=== PATIENT | male | born 1960 | race Caucasian/White ===

== ENCOUNTER 2023-03-19 16:15 | Outpatient (RCR) | payer OTHER, SELFPAY | END 2023-03-20 12:49 | disposition home or self-care (01) | LOC: PURB 16:15 | PROVIDERS: ATTENDING PHYSICIAN Internal Medicine Critical Care Medicine; FAMILY PHYSICIAN Internal Medicine | DX: J44.9 Chronic obstructive pulmonary disease, unspecified (principal) | CPT/HCPCS: 94625 ==

== ENCOUNTER 2023-04-11 16:15 | Outpatient (RCR) | payer OTHER, SELFPAY | END 2023-04-11 23:59 | disposition home or self-care (01) | LOC: PURB 16:15 | PROVIDERS: ATTENDING PHYSICIAN Internal Medicine Critical Care Medicine; FAMILY PHYSICIAN Internal Medicine | DX: J44.9 Chronic obstructive pulmonary disease, unspecified (principal) | CPT/HCPCS: 94625 ==

== ENCOUNTER → 2023-05-15 11:04 | Outpatient (REF) | payer OTHER, SELFPAY ==
[2023-05-15 12:24] LABS: % Basophils 0.8 % (0-2); % Immature Granulocytes 0.3 % (0-0.5); % Lymphocytes 29.3 % (20.5-51.1); % Monocytes 15.4 % (1.7-9.3); % Neutrophils 50.2 % (42.2-75.2); Absolute Eosinophils 0.2 10^3/uL (0-0.7); Absolute Lymphocytes 1.1 10^3/uL (1.2-3.4); Absolute Monocytes 0.6 10^3/uL (0.1-0.6); Absolute Neutrophils 1.9 10^3/uL (1.4-6.5); Hematocrit 30.3 % (39.0-52.0); Hemoglobin 8.6 g/dL (13.0-18.0); Mean Corp Hgb Conc. 28.4 g/dL (33.0-37.0); Mean Corpuscular Hgb 20.2 pg (27.0-31.0); Mean Corpuscular Volume 71.3 fL (80.0-94.0); Nucleated Red Blood Cells % 0 % (-); Red Blood Cell Count 4.25 10^6/uL (4.70-6.10); Red Cell Dist. Width 17.5 % (11.5-14.5); White Blood Cell Count 3.8 10^3/uL (4.8-10.8)
[2023-05-15 12:49] LABS: ALT (SGPT) < 10 U/L (0-50); AST (SGOT) 34 U/L (17-59); Albumin 3.7 g/dl (3.5-5.0); Alkaline Phosphatase 90 U/L (38-126); Blood Urea Nitrogen 13 mg/dl (9-20); Calcium 9.1 mg/dl (8.4-10.2); Carbon Dioxide 30 mmol/L (22-30); Chloride 103 mmol/L (98-107); Glucose 105 mg/dl (70-99); HDL Cholesterol 54 mg/dl; LDL Cholesterol, Calculated 31 mg/dl; Potassium 4.4 mmol/L (3.5-5.1); Sodium 137 mmol/L (135-145); Total Cholesterol 106 mg/dl (50-199); Total Protein 6.3 g/dl (6.3-8.2); Triglyceride 107 mg/dl (10-149); Very Low Density Lipoprotein 21 mg/dl (0-30); eGFR > 60.00
[2023-05-15 13:17] LABS: PSA, Total - Screen 0.41 ng/ml (0.0-4.0); TSH 1.35 uIU/ml (0.47-4.68)
[2023-05-15 13:35] LABS: Platelet Count 89 10^3/uL (130-400)
[2023-05-15 13:36] LABS: Anisocytosis 1+; Normal RBC Morphology No; Polychromasia 1+
[2023-05-15 13:37] LABS: Hypochromasia 2+; Ovalocytes 1+
[2023-05-16 20:43] LABS: AFP Male/Tumor Marker 5.44 ng/ml
== END ==
LOC: REG 11:04
PROVIDERS: ATTENDING PHYSICIAN Internal Medicine; FAMILY PHYSICIAN Internal Medicine
DX: K74.60 Unspecified cirrhosis of liver (principal); I48.0 Paroxysmal atrial fibrillation; J44.9 Chronic obstructive pulmonary disease, unspecified; Z12.5 Encounter for screening for malignant neoplasm of prostate
CPT/HCPCS: 36415; 80053; 80061; 82105; 84443; 85025; G0103

== ENCOUNTER → 2023-05-16 14:53 | Outpatient (REF) | payer OTHER, SELFPAY | LOC: RAD 14:53 | PROVIDERS: ATTENDING PHYSICIAN Internal Medicine Critical Care Medicine; FAMILY PHYSICIAN Internal Medicine | DX: Z87.891 Personal history of nicotine dependence (principal); R91.8 Other nonspecific abnormal finding of lung field | CPT/HCPCS: 71271 ==

== ENCOUNTER → 2023-10-10 09:53 | Outpatient (REF) | payer OTHER, SELFPAY ==
[2023-10-10 11:08] LABS: % Basophils 0.7 % (0-2); % Eosinophils 3.2 % (0-6); % Immature Granulocytes 0.4 % (0-0.5); % Lymphocytes 25.6 % (20.5-51.1); % Monocytes 18.9 % (1.7-9.3); % Neutrophils 51.2 % (42.2-75.2); Absolute Eosinophils 0.1 10^3/uL (0-0.7); Absolute Lymphocytes 0.7 10^3/uL (1.2-3.4); Absolute Monocytes 0.5 10^3/uL (0.1-0.6); Absolute Neutrophils 1.4 10^3/uL (1.4-6.5); Hematocrit 23.4 % (39.0-52.0); Hemoglobin 6.1 g/dL (13.0-18.0); Mean Corp Hgb Conc. 26.1 g/dL (33.0-37.0); Nucleated Red Blood Cells % 0 % (-); Platelet Count 87 10^3/uL (130-400); Red Blood Cell Count 3.39 10^6/uL (4.70-6.10); Red Cell Dist. Width 20.3 % (11.5-14.5); White Blood Cell Count 2.8 10^3/uL (4.8-10.8)
[2023-10-10 11:09] LABS: INR 3.35; PT 34.4 Sec (11.4-14.6)
[2023-10-10 11:38] LABS: ALT (SGPT) < 10 U/L (0-50); AST (SGOT) 22 U/L (17-59); Albumin 3.6 g/dl (3.5-5.0); Alkaline Phosphatase 76 U/L (38-126); Blood Urea Nitrogen 11 mg/dl (9-20); Calcium 9.1 mg/dl (8.4-10.2); Carbon Dioxide 31 mmol/L (22-30); Chloride 103 mmol/L (98-107); Glucose 102 mg/dl (70-99); Iron 35 ug/dl (49-181); Potassium 4.4 mmol/L (3.5-5.1); Sodium 141 mmol/L (135-145); Total Bilirubin 1.6 mg/dl (0.2-1.3); eGFR > 60.00
[2023-10-10 11:47] LABS: Percent Saturation 7 % (20-50); Total Iron Binding Capacity 465 ug/dl (261-462)
[2023-10-10 12:13] LABS: Ferritin 3.6 ng/ml (17.9-464.0)
[2023-10-10 13:15] LABS: Glycohemoglobin (HgbA1c) 4.8 % (4.0-5.6)
[2023-10-10 21:37] LABS: AFP Male/Tumor Marker 5.08 ng/ml
== END ==
LOC: REG 09:53
PROVIDERS: ATTENDING PHYSICIAN Internal Medicine; REFERRING PHYSICIAN Internal Medicine
DX: K74.60 Unspecified cirrhosis of liver (principal); E66.9 Obesity, unspecified; K21.9 Gastro-esophageal reflux disease without esophagitis; D50.8 Other iron deficiency anemias
CPT/HCPCS: 36415; 80053; 82105; 82728; 83036; 83540; 83550; 85025; 85610

== ENCOUNTER 2023-10-10 17:52 | Inpatient (IN) | payer OTHER, SELFPAY ==
[2023-10-10] VITALS (13 sets, daily range): BP systolic 109–134; BP diastolic 49–68; BMI 35.1; BMI 33.4
--- NOTE | 2023-10-10 13:30 | ED.GENMED ---
History of Present Illness
<Kareen Martinez PA-C - Last Filed: 10/10/23 22:02>
General
Chief Complaint: Abnormal Lab Value
Source: patient
Exam Limitations: none
Time Seen by Provider: 10/10/23 13:26
Nursing documentation reviewed up to this point in time: agreed with
History of Present Illness
History of Present Illness:
62-year-old male with a history of colon ectasia, hypertension, COPD, A-fib on Xarelto presenting emergency department today with concerns of low hemoglobin. Patient states that he has been feeling lightheaded and dizzy the past few days but did
not think much of it. Patient states that he went yesterday to see his primary care physician and he subsequently got routine outpatient blood work today which demonstrated a hemoglobin of 6.1. Patient's primary care provider called him and
advised him to report to emergency department immediately. Patient denies any chest pain, syncopal episodes. Patient denies dark tarry stools. Patient denies hematemesis, abdominal pain, constipation, diarrhea. Patient denies headache. Patient
states this is similar to how he felt when he had a GI bleed a few years ago, except now he does not have dark stools. Patient denies NSAID use.
Past History
<JENNIFER Carvalho Last Filed: 10/10/23 22:02>
Past History
ED Past Medical History: COPD (Emphysema), GERD, HTN, Hypercholesterolemia and Other (Umbilical hernia with repair, diverticulosis)
ED Past Surgical History: None and Other (Previous umbilical hernia repair)
Patient has exhibited threatening behavior?: No
Social History
Tobacco: Former smoker
Alcohol: Occasional (Rum and coke 1-2 but states more)
Personal:
Living: with family
Family History
Family History: Negative Diabetes, Hypertension or CAD
Review of Systems
<JENNIFER Carvalho Last Filed: 10/10/23 22:02>
Review of Systems
All Other Systems: ROS reviewed and negative except as documented in HPI and ROS
Phy Exam
<Kareen Martinez PA-C - Last Filed: 10/10/23 22:02>
Physical Exam
Physical Exam:
General: Patient is well appearing and in no acute distress; non-toxic
Skin: Warm and dry, pallor noted
Head: Normocephalic, atraumatic
Eyes: Sclera non-icteric. EOMs intact. PERRLA.
Cardiac: Regular rate and rhythm, no murmurs.
Peripheral Vascular: No lower extremity swelling or edema.
Pulm: Normal respiratory effort, no wheezes, rales, or rhonchi.
Abdomen: No abdominal tenderness to palpation
Rectal: External hemorrhoids noted. No active bleeding from rectum. Rectal vault empty.
Neuro: CN II-XII intact, no focal neurologic deficits.
Psychiatric: Appropriate mood and affect.
Course
<Kareen Martinez PA-C - Last Filed: 10/10/23 22:02>
Orders/Labs/Results
Orders:
Orders
10/10/23 Lunch
Clear Liquid
10/10/23 13:30
IV Insert/Care/Rem.- Treatment PRN
10/10/23 13:36
Electrocardiogram (*1) Urgent
Reason for Study: Shortness of Breath
EKG- Treatment ONCE
10/10/23 13:53
Cardiac Monitoring- Treatment ONCE
10/10/23 13:55
Type+Screen Urgent
10/10/23 14:17
* Blood Bank Products Urgent
Blood Bank Products: *Packed RBC Leuko(PRBC's)
Quantity: 1
Transfuse Today: Yes
Is product needed for scheduled surgery?: No
Reason: Anemia
10/10/23 17:28
GASTROINTESTINAL CONSULT Routine
Consulting Provider: Rodrigo Collins
Was physician already notified: Yes
Reason for consult: Severe anemia likely GI bleed
10/10/23 17:30
Admit/Transfer Patient As Directed
Co-Sign Provider:
Level of Care: Inpatient admission
Assign to:: Medical/Surgical
Physician / Group: Martínez Serrano
Diagnosis: Severe anemia suspected GI bleed
Reason for Hospitalization: Severe anemia suspected GI bleed
Expected length of stay greater than two midnights?: Yes
ELOS- Estimated Length of Stay in days: 2
I certify the patient meets the requirements for IP care: Yes
PRN Pain Medication Management As Directed
May give lesser potent ordered pain med per pt: Yes
preference::
Protocol:: Medication orders for pain may be administered in a
manner that supports deferring to patient preference
when the pt is:
- Requesting an ordered lesser potent pain medication.
Least to most potent pain medications are defined
as: acetaminophen < NSAID < tramadol < opioids
(morphine, oxycodone, hydromorphone).
- Requesting a lesser dose of the same medication IF
ORDERED.
- Requesting a less intrusive route of administration
if both routes are prescribed by the provider (PO <
IV).
10/10/23 17:39
Code Status As Directed
Resuscitation Status: Full Code
10/10/23 19:47
Acetaminophen [Tylenol] 650 mg PO Q4HPRN PRN
Albuterol [ProAIR HFA INHALER] 2 puff INH R Q4HPRN PRN
Bisacodyl [Dulcolax] 10 mg RECTAL [id number] PRN
Cholecalciferol (Vitamin D3) [VITAMIN D3 (cholecalciferol)] 50 mcg PO QPM
Polyethylene Glycol Powder [Miralax] 17 grams PO DAILYPRN PRN
10/10/23 19:47
Activity As Directed
Activity Level: As Tolerated
Pneumatic Compression Sleeves As Directed
Type: Knee high
Vital Signs As Directed
Frequency: Per unit guidelines
DX Deep Vein Thrombosis Video Routine
10/10/23 20:00
Ascorbic Acid [Vitamin C] 500 mg PO BID
Ipratropium/Albuterol Sulfate [Duoneb] 3 ml INH R QID
Pantoprazole [Protonix IV] 40 mg IV BID
10/10/23 22:00
Carbidopa/Levodopa [Sinemet 25-100] 1 tablet PO TID@1100,1800,2200
Docusate Sodium [Colace] 100 mg PO HS
tadalafil See Dose Instructions PO HS
10/11/23 06:00
Basic Metabolic Panel IN AM
Complete Blood Count/No Diff IN AM
Magnesium IN AM
10/11/23 08:00
Furosemide [Lasix] 40 mg PO DAILY
rkrjbqrigcv-tanshuqsd-ymfjbrws [Trelegy Ellipta] See Dose Instructions INH R DAILY
10/11/23 12:00
Propranolol Extended Release [Inderal LA] 80 mg PO NOON
Roflumilast [Daliresp] 500 mcg PO NOON
Rosuvastatin Calcium [Crestor] 20 mg PO NOON
10/12/23 06:00
Basic Metabolic Panel IN AM
Complete Blood Count/No Diff IN AM
Magnesium IN AM
10/13/23 06:00
Basic Metabolic Panel IN AM
Complete Blood Count/No Diff IN AM
Magnesium IN AM
10/14/23 06:00
Basic Metabolic Panel IN AM
Complete Blood Count/No Diff IN AM
Magnesium IN AM
10/15/23 06:00
Basic Metabolic Panel IN AM
Complete Blood Count/No Diff IN AM
Magnesium IN AM
10/16/23 06:00
Basic Metabolic Panel IN AM
Complete Blood Count/No Diff IN AM
Magnesium IN AM
10/17/23 06:00
Basic Metabolic Panel IN AM
Complete Blood Count/No Diff IN AM
Magnesium IN AM
Abnormal Lab Results
10/10/23
13:55
Crossmatch IS Only See Detail
10/10/23 13:29
10/10/23 13:29
Vital Signs
Initial and Last Documented VS:
Initial Vital Signs
Temp Pulse Resp BP Pulse Ox
99.4 F 69 18 126/57 97
10/10/23 12:33 10/10/23 12:33 10/10/23 12:33 10/10/23 12:33 10/10/23 12:33
Last Documented Vital Signs
Temp Pulse Resp BP Pulse Ox
98.4 F 70 16 117/51 98
10/10/23 19:40 10/10/23 19:40 10/10/23 20:13 10/10/23 19:40 10/10/23 20:13
Ugolt;Gokul Jarquin, - Last Filed: 10/10/23 15:03>
Orders/Labs/Results
Orders:
Orders
10/10/23 Lunch
Clear Liquid
10/10/23 13:30
IV Insert/Care/Rem.- Treatment PRN
10/10/23 13:36
Electrocardiogram (*1) Urgent
Reason for Study: Shortness of Breath
EKG- Treatment ONCE
10/10/23 13:53
Cardiac Monitoring- Treatment ONCE
10/10/23 13:55
Type+Screen Urgent
10/10/23 14:17
* Blood Bank Products Urgent
Blood Bank Products: *Packed RBC Leuko(PRBC's)
Quantity: 1
Transfuse Today: Yes
Is product needed for scheduled surgery?: No
Reason: Anemia
10/10/23 17:28
GASTROINTESTINAL CONSULT Routine
Consulting Provider: Rodrigo Collins
Was physician already notified: Yes
Reason for consult: Severe anemia likely GI bleed
10/10/23 17:30
Admit/Transfer Patient As Directed
Co-Sign Provider:
Level of Care: Inpatient admission
Assign to:: Medical/Surgical
Physician / Group: Martínez Serrano
Diagnosis: Severe anemia suspected GI bleed
Reason for Hospitalization: Severe anemia suspected GI bleed
Expected length of stay greater than two midnights?: Yes
ELOS- Estimated Length of Stay in days: 2
I certify the patient meets the requirements for IP care: Yes
PRN Pain Medication Management As Directed
May give lesser potent ordered pain med per pt: Yes
preference::
Protocol:: Medication orders for pain may be administered in a
manner that supports deferring to patient preference
when the pt is:
- Requesting an ordered lesser potent pain medication.
Least to most potent pain medications are defined
as: acetaminophen < NSAID < tramadol < opioids
(morphine, oxycodone, hydromorphone).
- Requesting a lesser dose of the same medication IF
ORDERED.
- Requesting a less intrusive route of administration
if both routes are prescribed by the provider (PO <
IV).
10/10/23 17:39
Code Status As Directed
Resuscitation Status: Full Code
10/10/23 19:47
Acetaminophen [Tylenol] 650 mg PO Q4HPRN PRN
Albuterol [ProAIR HFA INHALER] 2 puff INH R Q4HPRN PRN
Bisacodyl [Dulcolax] 10 mg RECTAL [id number] PRN
Cholecalciferol (Vitamin D3) [VITAMIN D3 (cholecalciferol)] 50 mcg PO QPM
Polyethylene Glycol Powder [Miralax] 17 grams PO DAILYPRN PRN
10/10/23 19:47
Activity As Directed
Activity Level: As Tolerated
Pneumatic Compression Sleeves As Directed
Type: Knee high
Vital Signs As Directed
Frequency: Per unit guidelines
DX Deep Vein Thrombosis Video Routine
10/10/23 20:00
Ascorbic Acid [Vitamin C] 500 mg PO BID
Ipratropium/Albuterol Sulfate [Duoneb] 3 ml INH R QID
Pantoprazole [Protonix IV] 40 mg IV BID
10/10/23 22:00
Carbidopa/Levodopa [Sinemet 25-100] 1 tablet PO TID@1100,1800,2200
Docusate Sodium [Colace] 100 mg PO HS
tadalafil See Dose Instructions PO HS
10/11/23 06:00
Basic Metabolic Panel IN AM
Complete Blood Count/No Diff IN AM
Magnesium IN AM
10/11/23 08:00
Furosemide [Lasix] 40 mg PO DAILY
[id number]-ljcjlyyqg-rogltigl [Trelegy Ellipta] See Dose Instructions INH R DAILY
10/11/23 12:00
Propranolol Extended Release [Inderal LA] 80 mg PO NOON
Roflumilast [Daliresp] 500 mcg PO NOON
Rosuvastatin Calcium [Crestor] 20 mg PO NOON
10/12/23 06:00
Basic Metabolic Panel IN AM
Complete Blood Count/No Diff IN AM
Magnesium IN AM
10/13/23 06:00
Basic Metabolic Panel IN AM
Complete Blood Count/No Diff IN AM
Magnesium IN AM
10/14/23 06:00
Basic Metabolic Panel IN AM
Complete Blood Count/No Diff IN AM
Magnesium IN AM
10/15/23 06:00
Basic Metabolic Panel IN AM
Complete Blood Count/No Diff IN AM
Magnesium IN AM
10/16/23 06:00
Basic Metabolic Panel IN AM
Complete Blood Count/No Diff IN AM
Magnesium IN AM
10/17/23 06:00
Basic Metabolic Panel IN AM
Complete Blood Count/No Diff IN AM
Magnesium IN AM
Abnormal Lab Results
10/10/23
13:55
Crossmatch IS Only See Detail
10/10/23 13:29
10/10/23 13:29
Vital Signs
Initial and Last Documented VS:
Initial Vital Signs
Temp Pulse Resp BP Pulse Ox
99.4 F 69 18 126/57 97
10/10/23 12:33 10/10/23 12:33 10/10/23 12:33 10/10/23 12:33 10/10/23 12:33
Last Documented Vital Signs
Temp Pulse Resp BP Pulse Ox
98.4 F 70 16 117/51 98
10/10/23 19:40 10/10/23 19:40 10/10/23 20:13 10/10/23 19:40 10/10/23 20:13
<Kareen Martinez PA-C - Last Filed: 10/10/23 22:02>
MDM/Problems Addressed
Differential Diagnosis Includes:
ddx include gastritis, duodenitis, colorectal cancer, iron deficiency anemia, colon ectasia
MDM/Problems Addressed:
Anemia:
62-year-old male with a history of colon ectasia, hypertension, COPD, A-fib on Xarelto presenting emergency department today with concerns of low hemoglobin. Patient states that he has been feeling lightheaded and dizzy the past few days but did
not think much of it. Patient states that he went yesterday to see his primary care physician and he subsequently got routine outpatient blood work today which demonstrated a hemoglobin of 6.1.
Of note, patient was hospitalized 2 years ago for similar case except at that time patient had dark stools. Patient was found at that time to have colon ectasia but unclear if that was the cause of the bleeding at the time. Patient followed up with
Dr. Roblero as an outpatient. Today I am unable to obtain a stool sample for hemoccult testing. Patient will be transfused. Patient is on Xarelto. Will admit for blood transfusion and further work up.
Chronic conditions affecting care:
Gi bleed, liver cirrhosis, copd
Acute Exacerbation and/or Progression of Chronic Illness:
Gi bleed, liver cirrhosis, copd
<Kareen Martinez PA-C - Last Filed: 10/10/23 22:02>
*Pulse Oximetry
Patient hypoxic: no
*Critical Care Note
Total Time (30-74mins, 75-104mins- exclusive of procedures): Not Applicable
Data Reviewed
Review of Other/Old Records Reveals: Records (reviewed records from previous ER visit where patient was transfused and hospitalized for anemia and GI bleed)
Source: patient and records
Prescriptions/Medications Considered But Not Given:
n/a
Further Testing Considered But Not Given:
n/a
<Kareen Martinez PA-C - Last Filed: 10/10/23 22:02>
Patient Management
Escalation/DeEscalation of care consider admission/obs:
Admit indicated
ED Attending Note
<JENNIFER Carvalho Last Filed: 10/10/23 22:02>
-
Portions of this chart may have been created with voice recognition software.� Occasional wrong word or��sound alike� substitutions may have occurred due to the inherent limitations of voice recognition software.
<Gokul Jarquin DO - Last Filed: 10/10/23 15:03>
ED Attending Note
Patient seen and examined by attending physician: Yes
I performed the substantive portion of visit, reviewed & personally made and approve the management plan that is documented in note by myself or CARLOS.: Yes
ED Attending Note:
I agree with Hope's note
Patient presents with fatigue, short breath with exertion. Outpatient labs show a low hemoglobin. Patient denies any melanotic stool or hematochezia.
General: Awake, Alert, Oriented X3. No acute distress.
Vitals: unremarkable
Head: Atraumatic
Eyes: Pupils equal, EOMI
Throat: Airway intact, no exudates
Neck: Trachea midline
Lungs: Clear and equal b/l
Heart: Regular rate, no murmurs
Abd: Soft, Nontender, No pulsatile mass
Neuro: Nonfocal
Skin: Pale, warm, dry, no rash
Extremities: pulses equal b/l, no edema
Patient will require transfusion. Patient will require hospitalization for further evaluation source of anemia
Discharge Plan
Departure
Patient Disposition: Admit
Date of Disposition: 10/10/23
Time of Disposition: 15:10
Admit to: Med/Surg
Presentation/result/management discussed w/ accepting MD/DO: Hospitalist
Patient with high blood pressure during this ER visit?: Yes
Condition: Fair
Discharge Problem:
Symptomatic anemia
Interventions
Interventions:
*Risk Screen - Suicide Last Done: 10/10/23 12:33
*General Assessment Last Done: 10/10/23 12:33
*Neglect/Abuse Screening Last Done: 10/10/23 12:33
ED- Fall Risk Assessment Last Done: 10/10/23 13:45
*ED COVID-19 Vaccine History Last Done: 10/10/23 13:45
*Nursing Disposition Last Done: 10/10/23 19:52
Discharge Date and Time
Discharge Date/Time: 10/10/23 19:54
--- NOTE | 2023-10-10 16:03 | HPS.HSE ---
Family Physician
-
Family Physician: Talib Nava
Chief Complaint
-
Abnormal Labs
History of Present Illness
62 male history colon Ectasia hypertension COPD A-fib Xarelto diverticulosis Parkinson # cirrhosis presents with incidental finding severe anemia on routine annual lab follow-up with primary. Referred to ED for further evaluation, patient reports
usual state of health denies any acute issues. Reports overall feeling well. Denies fevers chills nausea vomiting diarrhea constipation bloody or dark stools chest pain palpitations or abdomen pain. Does report occasional lightheadedness pallor.
Vital signs stable on room air. Labs notable for pancytopenia, hemoglobin 6.1. Iron deficiency noted with elevated TIBC, low ferritin.
Medical History
Past Medical History
Past Medical History: Reports Other (As above)
Past Surgical History: Reports Other (As above)
Social History
Tobacco: Non-smoker
Alcohol: None
Drug: None
Personal: Partner
Living: With Family
Family History
Family History: Not pertinent (Reviewed)
Allergies / Home Medications
Allergies reflects when Allergies were last updated in [facility].
Home Medications with original date entered in [facility]
Allergy/Medication List:
Allergies
Allergy/AdvReac Type Severity Reaction Status Date / Time
bacitracin Allergy Rash Verified 12/20/21 13:48
[From Neosporin
([id number])]
neomycin Allergy Rash Verified 12/20/21 13:48
[From Neosporin
([id number])]
polymyxin B Allergy Rash Verified 12/20/21 13:48
[From Neosporin
([id number])]
Home Medications
cholecalciferol (vitamin D3) 50 mcg (2,000 unit) tablet 2,000 unit PO QPM Supplement 03/20/18
docusate sodium 100 mg capsule 100 mg PO HS Constipation 03/20/18
ascorbic acid (vitamin C) 500 mg tablet (Vitamin C) 500 mg PO BID Supplement 04/06/19
lansoprazole 30 mg delayed release,disintegrating tablet 30 mg PO DAILY Gastrointestinal issue 04/06/19
roflumilast 500 mcg tablet (Daliresp) 500 mcg PO NOON Lung/breathing issues 04/06/19
rosuvastatin 20 mg tablet 20 mg PO NOON High cholesterol 03/06/21
rivaroxaban 20 mg tablet (Xarelto) 20 mg PO QPM #30 tabs 03/12/21
carbidopa 25 mg-levodopa 100 mg tablet (Sinemet) 1 tab PO TID@1100,1800,2200 Neurological Condition 12/20/21
furosemide 40 mg tablet (Lasix) 40 mg PO DAILY Fluid retention/Swelling 12/20/21
albuterol sulfate 90 mcg/actuation aerosol inhaler 2 puff inhalation R Q4HPRN PRN sob 10/10/23
fluticasone fur. 200 mcg-umeclid 62.5 mcg-vilant 25 mcg inhalat.powder (Trelegy Ellipta) 1 inh inhalation R DAILY 10/10/23
ipratropium 0.5 mg-albuterol 3 mg (2.5 mg base)/3 mL nebulization soln 3 ml inhalation R QID 10/10/23
propranolol 80 mg capsule,24 hr,extended release 80 mg PO NOON 10/10/23
tadalafil 5 mg tablet 5 mg PO HS 10/10/23
Review of Systems
-
A 12 point ROS was completed and negative except as noted: Yes
Constitutional: Reports Other (as below)
Physical Exam
Vital Signs
Vital Signs
Temp Pulse Resp BP Pulse Ox
98.2 F 65 21 121/62 97
10/10/23 15:45 10/10/23 15:45 10/10/23 15:45 10/10/23 15:45 10/10/23 15:45
Physical Exam
General: Other (as below)
Laboratory Results
-
10/10/23 13:29
10/10/23 13:29
Laboratory Results
Total Bilirubin Cancelled 10/10/23 13:29
AST Cancelled 10/10/23 13:29
ALT Cancelled 10/10/23 13:29
Alkaline Phosphatase Cancelled 10/10/23 13:29
Impression/Plan
-
ROS
General: Denies fever chills night sweats unexpected weight loss
Neuro: Denies seizure shaking loss of consciousness dizziness vertigo
Psych: denies depression hallucinations confusion manic episodes
Endocrine: Denies polyuria polydipsia polyphagia heat/cold intolerance
HEENT: Denies blindness visual disturbances epistaxis
Pulmonary: denies coughing hemoptysis sneezing sob dyspnea on exertion
Cardiovascular: denies chest pain palpitations leg swelling
Hematology: easy bruising/bleeding Reports intermittent lightheadedness pallor
Gastrointestinal: denies nausea vomiting diarrhea constipation hematemesis hematochezia melena
Genito-Urinary: denies retention incontinence dysuria
Musculoskeletal: denies joint pain weakness
Dermatology: denies rash laceration bruising
Physical Exam
General: No pallor, cyanosis, or jaundice. obese
HEENT: Throat clear. PERRLA Normocephalic atraumatic
NECK: Supple. No JVD Carotid Bruits
RESPIRATORY: Lungs clear to auscultation. No crackles wheezes stridor
CVS: S1, S2 normal. RRR. No murmur, rub or gallop.
ABDOMEN: Soft, non-tender. No distension. BS+/normal.
EXTREMITIES: No peripheral cyanosis or edema.
BSW: AOx3. No focal deficits.
IMPRESSION:
62 male history Colon Ectasia hypertension COPD A-fib Xarelto diverticulosis Parkinson # cirrhosis presents with incidental finding severe anemia on routine annual lab follow-up with primary. Referred to ED for further evaluation, patient reports
usual state of health denies any acute issues. Reports overall feeling well. Denies fevers chills nausea vomiting diarrhea constipation bloody or dark stools chest pain palpitations or abdomen pain. Does report occasional lightheadedness pallor.
Vital signs stable on room air. Labs notable for pancytopenia, hemoglobin 6.1. Iron deficiency noted with elevated TIBC, low ferritin.
PLAN:
#Severe Anemia Suspected GI bleed
#Pancytopenia possibly 2/2 BENDER cirrhosis
#Hx Colon Ectasia
#Diverticulosis
Hold home Xarelto
1PRBC transfusion given in ED Hgb 6.1 follow up AM lab post-transfusion
trend H&H WBC Platelets
GI eval
clear liquid diet
npo after midnight
IV protonix BID
#HTN
cont home Propranolol Lasix with holding parameters
#COPD
stable respiratory status on room air
cont home Trelegy Daliresp or equivalent
cont home Duoneb R QID
#paroxysmal Afib
currently normal sinus rhythm
hold home Xarelto as above
cont home Propranolol
#Parkinson
Cont home Sinemet
#BPH
cont home tadalafil
dvt ppx SCD
Full Code
discussed with patient and patient's significant other Shilpi
I spent a total of 77 minutes with the patient or on the floor. More than 50% of this time involved counseling and coordination of care.
--- NOTE | 2023-10-10 17:09 | CON.GI ---
Consultation
-
Date/Time Consultation Requested: 10/10/23 4pm
Date/Time Consultation Performed: 10/10/23 6:15pm
Requesting Provider: Kareen Martinez
Performing Provider: Rodrigo Collins
Reason for Consultation: Anemia
Medical History
Chief Complaint / HPI
Chief Complaint: Anemia
History of Present Illness:
Patient is a 62-year-old male who presents to the ER due to abnormal outpatient labs showing a hemoglobin of 6. This was done for routine physical. He actually denies any specific complaints at this time. He denies any fatigue, blood per rectum,
melena, abdominal pain, heartburn, dysphagia. He denies NSAIDs. He takes Prevacid daily for heartburn. He is on Xarelto for atrial fibrillation. He has BENDER cirrhosis. He had colonoscopy and endoscopy in December 2021 for evaluation of the
bleeding at that time. Endoscopy was negative for varices. He did not have capsule endoscopy done after that. He had a right sided ectasia on colonoscopy that was cauterized. He reports chronic constipation and takes Colace.
Past Medical History
Past Medical History: Arrhythmias (Afib), COPD, GERD, HTN and Other (BENDER cirrhosis, Parkinson's)
Past Surgical History: Other (umbilical hernia repair)
Social History
Tobacco: Former Smoker
Alcohol: None
Family History
Family History: Reviewed & Not Pertinent
Allergies / Home Medications
Allergy/AdvReac Type Severity Reaction Status Date / Time
bacitracin Allergy Rash Verified 12/20/21 13:48
[From Neosporin
([id number])]
neomycin Allergy Rash Verified 12/20/21 13:48
[From Neosporin
([id number])]
polymyxin B Allergy Rash Verified 12/20/21 13:48
[From Neosporin
([id number])]
�Medication �Instructions �Recorded
cholecalciferol (vitamin D3) 50 2,000 unit PO QPM Supplement 03/20/18
mcg (2,000 unit) tablet
docusate sodium 100 mg capsule 100 mg PO HS Constipation 03/20/18
ascorbic acid (vitamin C) 500 mg 500 mg PO BID Supplement 04/06/19
tablet (Vitamin C)
lansoprazole 30 mg delayed 30 mg PO DAILY Gastrointestinal 04/06/19
release,disintegrating tablet issue
roflumilast 500 mcg tablet 500 mcg PO NOON Lung/breathing 04/06/19
(Daliresp) issues
rosuvastatin 20 mg tablet 20 mg PO NOON High cholesterol 03/06/21
rivaroxaban 20 mg tablet (Xarelto) 20 mg PO QPM #30 tabs 03/12/21
carbidopa 25 mg-levodopa 100 mg 1 tab PO TID@1100,1800,2200 12/20/21
tablet (Sinemet) Neurological Condition
furosemide 40 mg tablet (Lasix) 40 mg PO DAILY Fluid 12/20/21
retention/Swelling
albuterol sulfate 90 mcg/actuation 2 puff inhalation R Q4HPRN PRN sob 10/10/23
aerosol inhaler
fluticasone fur. 200 mcg-umeclid 1 inh inhalation R DAILY 10/10/23
62.5 mcg-vilant 25 mcg
inhalat.powder (Trelegy Ellipta)
ipratropium 0.5 mg-albuterol 3 mg 3 ml inhalation R QID 10/10/23
(2.5 mg base)/3 mL nebulization
soln
propranolol 80 mg capsule,24 80 mg PO NOON 10/10/23
hr,extended release
tadalafil 5 mg tablet 5 mg PO HS 10/10/23
Review of Systems
-
All other systems: A 12 pt ROS was Negative except as stated above in HPI
Vital Signs
Temp Pulse Resp BP Pulse Ox
98.4 F 63 18 133/68 97
10/10/23 16:03 10/10/23 16:03 10/10/23 16:03 10/10/23 16:03 10/10/23 16:03
Physical Exam
Exam
General: No Apparent Distress
HEENT: Normocephalic and Atraumatic
Respiratory: Non Labored Respirations
GI: Soft, Non Tender and Non Distended
Skin: Warm and Dry
Neuro: Alert and Oriented
Psych: Calm
Results
WBC Cancelled 10/10/23 13:29
Hgb Cancelled 10/10/23 13:29
Hct Cancelled 10/10/23 13:29
MCV Cancelled 10/10/23 13:29
Plt Count Cancelled 10/10/23 13:29
Absolute Neuts (auto) Cancelled 10/10/23 13:29
Sodium Cancelled 10/10/23 13:29
Potassium Cancelled 10/10/23 13:29
Chloride Cancelled 10/10/23 13:29
Carbon Dioxide Cancelled 10/10/23 13:29
BUN Cancelled 10/10/23 13:29
Creatinine Cancelled 10/10/23 13:29
Calcium Cancelled 10/10/23 13:29
Total Bilirubin Cancelled 10/10/23 13:29
AST Cancelled 10/10/23 13:29
ALT Cancelled 10/10/23 13:29
Alkaline Phosphatase Cancelled 10/10/23 13:29
Diagnostic Image Results:
Prior GI Procedures:
EGD:
Colonoscopy:
Assessment / Plan
-
Summary: 62yo male presents with Hgb 6.1 on routine labs. Denies GI complaints. INR 3.35. On Xarelto for Afib. Last EGD/colonoscopy in December 2021 for evaluation of GI bleeding/melena. EGD negative. Colonoscopy R sided ectasia cauterized w
APC.
Impression:
Anemia Hgb 6.1. No stool in vault on rectal in ER
Afib on Xarelto. INR 3.35
MASH cirrhosis
Hx R colon ectasia cauterized in 2021
Recommendations:
Hold Xarelto
Transfuse PRBC
Follow CBC, INR
EGD when INR is acceptable r/o portal gastropathy, varices, PUD
If EGD negative, then colonoscopy and OP capsule endoscopy next
PPI
-
-
Thank you for consultation and allowing me to participate in the patient's care. Please call the irrigation laborer GI physician during the after hours with any questions or concerns.
[2023-10-10] MEDS: DUONEB 3 ML INH (20:09)
[2023-10-10] MEDS: PROTONIX IV 40 MG IV (20:45)
[2023-10-10] MEDS: NSS (PRESERVATIVE FREE) 10 ML IV (20:47)
[2023-10-10] MEDS: VITAMIN C 500 MG PO (20:53)
[2023-10-10] MEDS: VITAMIN D3 (cholecalciferol) 50 MCG PO (20:53)
[2023-10-10] MEDS: SINEMET 25-100 1 TABLET PO (20:53)
[2023-10-10] MEDS: COLACE PO (22:10)
[2023-10-11] VITALS (8 sets, daily range): BP systolic 105–133; BP diastolic 47–63
[2023-10-11] MEDS: MYLICON 80 MG PO (03:06)
--- NOTE | 2023-10-11 03:21 | PTCARENOTE ---
Patient c/o gas pains. No prn medications available. Patient has had no BMs. CHRISTINE Hernandez notified, order for Mylicon placed in EMR. Care ongoing, will monitor.
--- NOTE | 2023-10-11 07:39 | W.PN.HOSP.TC ---
Today's Communication/Plan
-
diet as per GI
transfuse goal hgb>7.5
monitor H&H
Iron supplementation
Assessment / Plan
Assessment / Plan
Physical Exam
General: No pallor, cyanosis, or jaundice. obese
HEENT: Throat clear. PERRLA Normocephalic atraumatic
NECK: Supple. No JVD Carotid Bruits
RESPIRATORY: Lungs clear to auscultation. No crackles wheezes stridor
CVS: S1, S2 normal. RRR. No murmur, rub or gallop.
ABDOMEN: Soft, non-tender. No distension. BS+/normal.
EXTREMITIES: No peripheral cyanosis or edema.
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 No focal deficits.
IMPRESSION:
62 male history Colon Ectasia hypertension COPD A-fib Xarelto diverticulosis Parkinson # cirrhosis presents with incidental finding severe anemia on routine annual lab follow-up with primary. Referred to ED for further evaluation, patient reports
usual state of health denies any acute issues. Reports overall feeling well. Denies fevers chills nausea vomiting diarrhea constipation bloody or dark stools chest pain palpitations or abdomen pain. Does report occasional lightheadedness pallor.
Vital signs stable on room air. Labs notable for pancytopenia, hemoglobin 6.1. Iron deficiency noted with elevated TIBC, low ferritin.
PLAN:
#Severe Anemia Suspected GI bleed
#Pancytopenia possibly 2/2 BENDER cirrhosis
#Hx Colon Ectasia
#Diverticulosis
Hold home Xarelto
Monitor H&H and transfuse for goal Hgb>7.5
trend H&H WBC Platelets
GI eval appreciated
clear liquid diet
IV protonix BID
#HTN
cont home Propranolol Lasix with holding parameters
#COPD
stable respiratory status on room air
cont home Trelegy Daliresp or equivalent
cont home Duoneb R QID
#paroxysmal Afib
currently normal sinus rhythm
hold home Xarelto as above
cont home Propranolol
#Parkinson
Cont home Sinemet
#BPH
cont home tadalafil
dvt ppx SCD
Full Code
I spent a total of 50 minutes with the patient or on the floor. More than 50% of this time involved counseling and coordination of care.
Anticipated Discharge: > 48 hours
Subjective/Interval History
-
Date of Service: October 11, 2023
No acute distress. Appears comfortable at this time.
Objective Data
-
Labs:
Laboratory Results
10/11/23 10/11/23
06:00 06:49
WBC Pending
Hgb Pending
Hct Pending
Plt Count Pending
PT Pending
INR Pending
Sodium Pending
Potassium Pending
Chloride Pending
Carbon Dioxide Pending
BUN Pending
Creatinine Pending
Glucose Pending
Calcium Pending
Vital Signs:
Vital Signs
Temp Pulse Resp BP Pulse Ox
98.4 F 67 18 116/62 98
10/11/23 03:10 10/11/23 03:10 10/11/23 03:10 10/11/23 03:10 10/11/23 03:10
I&O
10/10/23 10/11/23 10/12/23
06:59 06:59 06:59
Intake Total 1210 / 1210
Balance 1210 / 1210
[2023-10-11] MEDS: NON-FORMULARY ITEM 1 INH INH (08:24)
[2023-10-11] MEDS: DUONEB 3 ML INH ×4 (08:24→23:59)
[2023-10-11] MEDS: NSS (PRESERVATIVE FREE) 10 ML IV ×2 (08:44→21:16)
[2023-10-11] MEDS: PROTONIX IV 40 MG IV ×2 (08:44→21:15)
[2023-10-11] MEDS: LASIX 40 MG PO (08:44)
[2023-10-11] MEDS: VITAMIN C 500 MG PO ×2 (08:45→21:10)
[2023-10-11 09:02] LABS: Hematocrit 26.9 % (39.0-52.0); Hemoglobin 7.5 g/dL (13.0-18.0); INR 1.69; Mean Corp Hgb Conc. 27.9 g/dL (33.0-37.0); Mean Corpuscular Volume 68.3 fL (80.0-94.0); PT 19.7 Sec (11.4-14.6); Platelet Count 103 10^3/uL (130-400); Red Blood Cell Count 3.94 10^6/uL (4.70-6.10); Red Cell Dist. Width 21.1 % (11.5-14.5); White Blood Cell Count 4.4 10^3/uL (4.8-10.8)
[2023-10-11 09:29] LABS: Blood Urea Nitrogen 9 mg/dl (9-20); Calcium 9.4 mg/dl (8.4-10.2); Carbon Dioxide 28 mmol/L (22-30); Chloride 103 mmol/L (98-107); Estimated Creatinine Clearance > 125 ml/min; Glucose 104 mg/dl (70-99); Magnesium 1.8 mg/dl (1.6-2.3); Phosphorus 3.7 mg/dl (2.5-4.5); Potassium 4.4 mmol/L (3.5-5.1); Sodium 140 mmol/L (135-145); eGFR > 60.00
--- NOTE | 2023-10-11 09:35 | W.PN.GI.CBS2 ---
Today's Communication / Plan
-
monitor hgb
can have clears
Assessment / Plan
-
Summary: 62yo male presents with Hgb 6.1 on routine labs. Denies GI complaints. INR 3.35. On Xarelto for Afib. Last EGD/colonoscopy in December 2021 for evaluation of GI bleeding/melena. EGD negative. Colonoscopy R sided ectasia cauterized w
APC.
Impression:
Anemia Hgb 6.1. now 7.5
No stool in vault on rectal in ER
Afib on Xarelto. INR 3.35 now 1.69
MASH cirrhosis
Hx R colon ectasia cauterized in 2021
Recommendations:
Hold Xarelto
Follow CBC, INR
INR trended down
EGD/colonoscopy when stable
PPI
ok clears
Subjective
Subjective
Date of Service: October 11, 2023
Pt feels short of breath and fatigued. No abdominal pain or bleeding
Objective
Data Reviewed
Laboratory Data:
Laboratory Results
10/11/23 08:16
10/11/23 08:16
Laboratory Results
PT 19.7 Sec (11.4-14.6) H 10/11/23 08:16
INR 1.69 10/11/23 08:16
Phosphorus 3.7 mg/dl (2.5-4.5) 10/11/23 08:16
Magnesium 1.8 mg/dl (1.6-2.3) 10/11/23 08:16
Total Bilirubin Cancelled 10/10/23 13:29
AST Cancelled 10/10/23 13:29
ALT Cancelled 10/10/23 13:29
Alkaline Phosphatase Cancelled 10/10/23 13:29
Vital Signs and I&O:
Vital Signs
Temp Pulse Resp BP Pulse Ox
98.1 F 79 16 122/61 98
10/11/23 08:05 10/11/23 08:29 10/11/23 08:29 10/11/23 08:05 10/11/23 08:29
I&O
10/10/23 10/11/23 10/12/23
06:59 06:59 06:59
Intake Total 1210 / 1210
Balance 1210 / 1210
Physical Exam
Physical Exam
Pulmonary: Other (dec breath sounds)
GI: Soft and Non Tender
[2023-10-11] MEDS: DALIRESP 500 MCG PO (11:12)
[2023-10-11] MEDS: CRESTOR 20 MG PO (11:12)
[2023-10-11] MEDS: INDERAL LA 80 MG PO (11:12)
[2023-10-11] MEDS: SINEMET 25-100 1 TABLET PO ×3 (11:14→21:24)
[2023-10-11] MEDS: DUONEB INH (11:47)
[2023-10-11 13:28] LABS: Hematocrit 25.6 % (39.0-52.0); Hemoglobin 7.1 g/dL (13.0-18.0)
[2023-10-11] MEDS: FERRLECIT 110 MG IV (13:41)
--- NOTE | 2023-10-11 14:39 | CM ---
Patient seen bedside with , initial assessment completed. Patient resides in a single story home, two steps to enter. Patient has a walker at home, CPAP through [facility], history of [facility], denies SNF. Patient confirms PCP
Brandy, pharmacy [facility]. Patient confirms prescription coverage through insurance. Patient denies food, housing/utility, transportation insecurities at home. Advanced directive paperwork provided. CM will continue to follow for all
discharge planning needs.
Plan; home no needs likely.
[2023-10-11] MEDS: VITAMIN D3 (cholecalciferol) 50 MCG PO (18:39)
[2023-10-11] MEDS: COLACE PO (21:12)
[2023-10-11] MEDS: NON-FORMULARY ITEM 5 MG PO (21:17)
[2023-10-12] VITALS (7 sets, daily range): BP systolic 114–149; BP diastolic 54–80
[2023-10-12 06:51] LABS: Blood Urea Nitrogen 8 mg/dl (9-20); Calcium 8.9 mg/dl (8.4-10.2); Carbon Dioxide 28 mmol/L (22-30); Chloride 100 mmol/L (98-107); Estimated Creatinine Clearance > 125 ml/min; Glucose 92 mg/dl (70-99); Magnesium 1.7 mg/dl (1.6-2.3); Potassium 4.3 mmol/L (3.5-5.1); Sodium 138 mmol/L (135-145); eGFR > 60.00
[2023-10-12] MEDS: DUONEB 3 ML INH ×4 (07:26→20:27)
--- NOTE | 2023-10-12 07:34 | W.PN.HOSP.TC ---
Today's Communication/Plan
-
monitor H&H
diet as per GI
EGD/colonoscopy Sat
Assessment / Plan
Assessment / Plan
Physical Exam
General: No pallor, cyanosis, or jaundice. obese
HEENT: Throat clear. PERRLA Normocephalic atraumatic
NECK: Supple. No JVD Carotid Bruits
RESPIRATORY: Lungs clear to auscultation. No crackles wheezes stridor
CVS: S1, S2 normal. RRR. No murmur, rub or gallop.
ABDOMEN: Soft, non-tender. No distension. BS+/normal.
EXTREMITIES: No peripheral cyanosis or edema.
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
IMPRESSION:
62 male history Colon Ectasia hypertension COPD A-fib Xarelto diverticulosis Parkinson # cirrhosis presents with incidental finding severe anemia on routine annual lab follow-up with primary. Referred to ED for further evaluation, patient reports
usual state of health denies any acute issues. Reports overall feeling well. Denies fevers chills nausea vomiting diarrhea constipation bloody or dark stools chest pain palpitations or abdomen pain. Does report occasional lightheadedness pallor.
Vital signs stable on room air. Labs notable for pancytopenia, hemoglobin 6.1. Iron deficiency noted with elevated TIBC, low ferritin.
PLAN:
#Severe Anemia Suspected GI bleed
#Pancytopenia possibly 2/2 BENDER cirrhosis
#Hx Colon Ectasia
#Diverticulosis
Hold home Xarelto
Monitor H&H and transfuse for goal Hgb>7.5
trend H&H WBC Platelets
GI eval appreciated EGD/colonoscopy Saturday
diet as per GI
IV protonix BID
#HTN
cont home Propranolol Lasix with holding parameters
#COPD
stable respiratory status on room air
cont home Trelegy Daliresp or equivalent
cont home Duoneb R QID
#paroxysmal Afib
currently normal sinus rhythm
hold home Xarelto as above
cont home Propranolol
#Parkinson
Cont home Sinemet
#BPH
cont home tadalafil
dvt ppx SCD
Full Code
I spent a total of 50 minutes with the patient or on the floor. More than 50% of this time involved counseling and coordination of care.
Anticipated Discharge: 24 - 48 hours
Subjective/Interval History
-
Date of Service: October 12, 2023
no acute distress. comfortable
Objective Data
-
Labs:
Laboratory Results
10/12/23
05:56
WBC Pending
Hgb Pending
Hct Pending
Plt Count Pending
Sodium 138
Potassium 4.3
Chloride 100
Carbon Dioxide 28
BUN 8 L
Creatinine 0.7
Glucose 92
Calcium 8.9
Vital Signs:
Vital Signs
Temp Pulse Resp BP Pulse Ox
98.4 F 68 16 149/80 95
10/12/23 03:25 10/12/23 07:28 10/12/23 07:28 10/12/23 03:25 10/12/23 07:28
I&O
10/11/23 10/12/23 10/13/23
06:59 06:59 06:59
Intake Total 1210 / 1210 1090 / 1090
Balance 1210 / 1210 1090 / 1090
[2023-10-12 08:04] LABS: Hematocrit 30.4 % (39.0-52.0); Hemoglobin 8.6 g/dL (13.0-18.0); Mean Corp Hgb Conc. 28.3 g/dL (33.0-37.0); Mean Corpuscular Volume 70.9 fL (80.0-94.0); Platelet Count 116 10^3/uL (130-400); Red Blood Cell Count 4.29 10^6/uL (4.70-6.10); Red Cell Dist. Width 22.5 % (11.5-14.5); White Blood Cell Count 6.7 10^3/uL (4.8-10.8)
[2023-10-12] MEDS: LASIX 40 MG PO (08:39)
[2023-10-12] MEDS: VITAMIN C 500 MG PO ×2 (08:39→21:18)
[2023-10-12] MEDS: PROTONIX IV 40 MG IV ×2 (08:40→21:25)
[2023-10-12] MEDS: NSS (PRESERVATIVE FREE) 10 ML IV ×2 (08:40→21:25)
[2023-10-12] MEDS: SINEMET 25-100 1 TABLET PO ×3 (12:30→21:18)
[2023-10-12] MEDS: INDERAL LA 80 MG PO (12:31)
[2023-10-12] MEDS: CRESTOR 20 MG PO (12:31)
[2023-10-12] MEDS: DALIRESP 500 MCG PO (12:31)
[2023-10-12] MEDS: NON-FORMULARY ITEM 1 INH INH (12:31)
--- NOTE | 2023-10-12 13:32 | W.PN.GI.CBS2 ---
Today's Communication / Plan
-
EGD/colonoscopy saturday
Assessment / Plan
-
Summary: 62yo male presents with Hgb 6.1 on routine labs. Denies GI complaints. INR 3.35. On Xarelto for Afib. Last EGD/colonoscopy in December 2021 for evaluation of GI bleeding/melena. EGD negative. Colonoscopy R sided ectasia cauterized w
APC.
Impression:
Anemia Hgb 6.1. now 7.5
No stool in vault on rectal in ER
Afib on Xarelto. INR 3.35 now 1.69
MASH cirrhosis
Hx R colon ectasia cauterized in 2021
Recommendations:
Hold Xarelto
hgb stable
recheck inr tomorrow
ok for low residue diet today, clears and prep tomorrow
EGD/colonoscopy on saturday
PPI
Subjective
Subjective
Date of Service: October 12, 2023
no overt bleeding or abdominal pain
Objective
Data Reviewed
Laboratory Data:
Laboratory Results
10/12/23 05:56
Laboratory Results
PT 19.7 Sec (11.4-14.6) H 10/11/23 08:16
INR 1.69 10/11/23 08:16
Phosphorus 4.0 mg/dl (2.5-4.5) 10/12/23 05:56
Magnesium 1.7 mg/dl (1.6-2.3) 10/12/23 05:56
Total Bilirubin Cancelled 10/10/23 13:29
AST Cancelled 10/10/23 13:29
ALT Cancelled 10/10/23 13:29
Alkaline Phosphatase Cancelled 10/10/23 13:29
Vital Signs and I&O:
Vital Signs
Temp Pulse Resp BP Pulse Ox
97.8 F 68 18 122/61 97
10/12/23 11:01 10/12/23 11:01 10/12/23 11:01 10/12/23 11:01 10/12/23 11:01
I&O
10/11/23 10/12/23 10/13/23
06:59 06:59 06:59
Intake Total 1210 / 1210 1090 / 1090
Balance 1210 / 1210 1090 / 1090
Physical Exam
Physical Exam
GI: Soft and Distended (hernia)
[2023-10-12] MEDS: FERRLECIT 110 MG IV (14:48)
[2023-10-12] MEDS: VITAMIN D3 (cholecalciferol) 50 MCG PO (17:02)
[2023-10-12 18:01] LABS: Hematocrit 29.3 % (39.0-52.0); Hemoglobin 8.3 g/dL (13.0-18.0)
[2023-10-12] MEDS: COLACE 100 MG PO (21:17)
[2023-10-12] MEDS: NON-FORMULARY ITEM 5 MG PO (21:19)
[2023-10-13 03:00] VITALS: BP 134/57
[2023-10-13 07:00] VITALS: BP 112/61
[2023-10-13 07:09] LABS: INR 1.38; PT 16.8 Sec (11.4-14.6)
[2023-10-13 07:30] LABS: Blood Urea Nitrogen 9 mg/dl (9-20); Calcium 8.9 mg/dl (8.4-10.2); Carbon Dioxide 31 mmol/L (22-30); Chloride 100 mmol/L (98-107); Estimated Creatinine Clearance > 125 ml/min; Glucose 81 mg/dl (70-99); Magnesium 1.7 mg/dl (1.6-2.3); Potassium 3.8 mmol/L (3.5-5.1); Sodium 138 mmol/L (135-145); eGFR > 60.00
--- NOTE | 2023-10-13 07:33 | W.PN.HOSP.TC ---
Today's Communication/Plan
-
monitor H&H
Iron supplementation
bowel prep as per GI
npo after midnight for EGD/colonoscopy
Assessment / Plan
Assessment / Plan
Physical Exam
General: No pallor, cyanosis, or jaundice. obese
HEENT: Throat clear. PERRLA Normocephalic atraumatic
NECK: Supple. No JVD Carotid Bruits
RESPIRATORY: Lungs clear to auscultation. No crackles wheezes stridor
CVS: S1, S2 normal. RRR. No murmur, rub or gallop.
ABDOMEN: Soft, non-tender. No distension. BS+/normal.
EXTREMITIES: No peripheral cyanosis or edema.
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 No focal deficits.
IMPRESSION:
62 male history Colon Ectasia hypertension COPD A-fib Xarelto diverticulosis Parkinson # cirrhosis presents with incidental finding severe anemia on routine annual lab follow-up with primary. Referred to ED for further evaluation, patient reports
usual state of health denies any acute issues. Reports overall feeling well. Denies fevers chills nausea vomiting diarrhea constipation bloody or dark stools chest pain palpitations or abdomen pain. Does report occasional lightheadedness pallor.
Vital signs stable on room air. Labs notable for pancytopenia, hemoglobin 6.1. Iron deficiency noted with elevated TIBC, low ferritin.
PLAN:
#Severe Anemia Suspected GI bleed
#Pancytopenia possibly 2/2 BENDER cirrhosis
#Hx Colon Ectasia
#Diverticulosis
Hold home Xarelto
Monitor H&H and transfuse for goal Hgb>7.5
trend H&H WBC Platelets
GI eval appreciated EGD/colonoscopy Saturday
diet as per GI
IV protonix BID
#HTN
cont home Propranolol Lasix with holding parameters
#COPD
stable respiratory status on room air
cont home Trelegy Daliresp or equivalent
cont home Duoneb R QID
#paroxysmal Afib
currently normal sinus rhythm
hold home Xarelto as above
cont home Propranolol
#Parkinson
Cont home Sinemet
#BPH
cont home tadalafil
dvt ppx SCD
Full Code
I spent a total of 50 minutes with the patient or on the floor. More than 50% of this time involved counseling and coordination of care.
Anticipated Discharge: 24 - 48 hours
Subjective/Interval History
-
Date of Service: October 13, 2023
No acute distress. Reports feeling well.
Objective Data
-
Labs:
Laboratory Results
10/13/23
06:21
WBC Pending
Hgb Pending
Hct Pending
Plt Count Pending
PT 16.8 H
INR 1.38
APTT 42.0 H
Sodium 138
Potassium 3.8
Chloride 100
Carbon Dioxide 31 H
BUN 9
Creatinine 0.7
Glucose 81
Calcium 8.9
Vital Signs:
Vital Signs
Temp Pulse Resp BP Pulse Ox
97.9 F 61 16 134/57 93
10/13/23 03:00 10/13/23 03:00 10/13/23 03:00 10/13/23 03:00 10/13/23 03:00
I&O
10/12/23 10/13/23 10/14/23
06:59 06:59 06:59
Intake Total 1090 / 1090 270 / 270 0 / 0
Balance 1090 / 1090 270 / 270 0 / 0
[2023-10-13 08:19] LABS: Hematocrit 27.8 % (39.0-52.0); Hemoglobin 7.8 g/dL (13.0-18.0); Mean Corp Hgb Conc. 28.1 g/dL (33.0-37.0); Mean Corpuscular Hgb 20.3 pg (27.0-31.0); Mean Corpuscular Volume 72.2 fL (80.0-94.0); Platelet Count 99 10^3/uL (130-400); Red Blood Cell Count 3.85 10^6/uL (4.70-6.10); Red Cell Dist. Width 23.2 % (11.5-14.5); White Blood Cell Count 5.6 10^3/uL (4.8-10.8)
[2023-10-13] MEDS: VITAMIN C 500 MG PO ×2 (08:22→21:08)
[2023-10-13] MEDS: LASIX 40 MG PO (08:22)
[2023-10-13] MEDS: PROTONIX IV 40 MG IV ×2 (08:23→21:08)
[2023-10-13] MEDS: NSS (PRESERVATIVE FREE) 10 ML IV ×2 (08:23→21:08)
[2023-10-13] MEDS: NON-FORMULARY ITEM 1 INH INH (08:33)
--- NOTE | 2023-10-13 09:40 | CM ---
Reviewed patient chart, patient at baseline per nursing staff, functionally. Will watch for needs.
Plan: Case management will continue to follow and assist with discharge planning. Home when stable.
--- NOTE | 2023-10-13 10:16 | RESPNOTE ---
Respiratory: patient wanted to stay on CPAP @0800 this morning, continue sleeping. No c/o SOB.
[2023-10-13 11:00] VITALS: BP 115/60
[2023-10-13] MEDS: DUONEB 3 ML INH ×2 (11:14→15:17)
[2023-10-13] MEDS: DUONEB INH ×2 (11:17→20:57)
[2023-10-13] MEDS: CRESTOR 20 MG PO (11:22)
[2023-10-13] MEDS: DALIRESP 500 MCG PO (11:22)
[2023-10-13] MEDS: INDERAL LA 80 MG PO (11:23)
[2023-10-13] MEDS: SINEMET 25-100 1 TABLET PO ×3 (11:27→21:32)
[2023-10-13 12:43] LABS: Hemoglobin 8.3 g/dL (13.0-18.0)
[2023-10-13] MEDS: FERRLECIT 110 MG IV (13:41)
[2023-10-13 15:00] VITALS: BP 121/52
[2023-10-13] MEDS: NULYTELY SOLUTION 4 LITERS PO (16:12)
[2023-10-13] MEDS: VITAMIN D3 (cholecalciferol) 50 MCG PO (18:27)
[2023-10-13 19:43] VITALS: BP 124/64
[2023-10-13] MEDS: COLACE PO (21:15)
[2023-10-13] MEDS: NON-FORMULARY ITEM 5 MG PO (21:16)
[2023-10-13 23:29] VITALS: BP 117/61
[2023-10-14] VITALS (9 sets, daily range): BP systolic 19–130; BP diastolic 35–63; BMI 33.4
[2023-10-14] MEDS: DUONEB 3 ML INH ×4 (01:11→23:55)
--- NOTE | 2023-10-14 07:35 | W.PN.HOSP.TC ---
Today's Communication/Plan
-
EGD/colonoscopy today
monitor H&H
Assessment / Plan
Assessment / Plan
Physical Exam
General: No pallor, cyanosis, or jaundice. obese
HEENT: Throat clear. PERRLA Normocephalic atraumatic
NECK: Supple. No JVD Carotid Bruits
RESPIRATORY: Lungs clear to auscultation. No crackles wheezes stridor
CVS: S1, S2 normal. RRR. No murmur, rub or gallop.
ABDOMEN: Soft, non-tender. No distension. BS+/normal.
EXTREMITIES: No peripheral cyanosis or edema.
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 No focal deficits.
IMPRESSION:
62 male history Colon Ectasia hypertension COPD A-fib Xarelto diverticulosis Parkinson # cirrhosis presents with incidental finding severe anemia on routine annual lab follow-up with primary. Referred to ED for further evaluation, patient reports
usual state of health denies any acute issues. Reports overall feeling well. Denies fevers chills nausea vomiting diarrhea constipation bloody or dark stools chest pain palpitations or abdomen pain. Does report occasional lightheadedness pallor.
Vital signs stable on room air. Labs notable for pancytopenia, hemoglobin 6.1. Iron deficiency noted with elevated TIBC, low ferritin.
PLAN:
#Severe Anemia Suspected GI bleed
#Pancytopenia possibly 2/2 BENDER cirrhosis
#Hx Colon Ectasia
#Diverticulosis
Hold home Xarelto
Monitor H&H and transfuse for goal Hgb>7.5
trend H&H WBC Platelets
GI eval appreciated EGD/colonoscopy Saturday
diet as per GI
IV protonix BID
#HTN
cont home Propranolol Lasix with holding parameters
#COPD
stable respiratory status on room air
cont home Trelegy Daliresp or equivalent
cont home Duoneb R QID
#paroxysmal Afib
currently normal sinus rhythm
hold home Xarelto as above
cont home Propranolol
#Parkinson
Cont home Sinemet
#BPH
cont home tadalafil
dvt ppx SCD
Full Code
I spent a total of 40 minutes with the patient or on the floor. More than 50% of this time involved counseling and coordination of care.
Anticipated Discharge: Within 24 hours
Subjective/Interval History
-
Date of Service: October 14, 2023
No acute distress. Appears comfortable
Objective Data
-
Labs:
Laboratory Results
10/14/23
06:36
WBC Pending
Hgb Pending
Hct Pending
Plt Count Pending
Sodium Pending
Potassium Pending
Chloride Pending
Carbon Dioxide Pending
BUN Pending
Creatinine Pending
Glucose Pending
Calcium Pending
Vital Signs:
Vital Signs
Temp Pulse Resp BP Pulse Ox
97.5 F 55 18 130/63 96
10/14/23 03:09 10/14/23 03:09 10/14/23 03:09 10/14/23 03:09 10/14/23 03:09
I&O
10/13/23 10/14/23 10/15/23
06:59 06:59 06:59
Intake Total 270 / 270 210 / 210
Balance 270 / 270 210 / 210
[2023-10-14] MEDS: NON-FORMULARY ITEM 1 INH INH (07:37)
[2023-10-14] MEDS: LASIX PO (07:55)
[2023-10-14] MEDS: NSS (PRESERVATIVE FREE) 10 ML IV ×2 (07:56→20:13)
[2023-10-14] MEDS: PROTONIX IV 40 MG IV ×2 (07:57→20:13)
[2023-10-14] MEDS: VITAMIN C PO (08:01)
[2023-10-14 08:23] LABS: Hematocrit 29.2 % (39.0-52.0); Hemoglobin 8.3 g/dL (13.0-18.0); Mean Corp Hgb Conc. 28.4 g/dL (33.0-37.0); Mean Corpuscular Hgb 20.3 pg (27.0-31.0); Mean Corpuscular Volume 71.6 fL (80.0-94.0); Platelet Count 114 10^3/uL (130-400); Red Blood Cell Count 4.08 10^6/uL (4.70-6.10); Red Cell Dist. Width 24.8 % (11.5-14.5); White Blood Cell Count 4.5 10^3/uL (4.8-10.8)
[2023-10-14 08:26] LABS: Blood Urea Nitrogen 8 mg/dl (9-20); Calcium 9.2 mg/dl (8.4-10.2); Carbon Dioxide 28 mmol/L (22-30); Chloride 100 mmol/L (98-107); Estimated Creatinine Clearance > 125 ml/min; Glucose 82 mg/dl (70-99); Magnesium 1.6 mg/dl (1.6-2.3); Phosphorus 4.1 mg/dl (2.5-4.5); Potassium 3.6 mmol/L (3.5-5.1); Sodium 138 mmol/L (135-145); eGFR > 60.00
--- NOTE | 2023-10-14 10:30 | W.PN.UPDATE ---
Update Note
Progress Note Update
Bleeding sites likely AVMs: 7 cauterized in the colon. all nonbleeding.
plan:
1. regular diet
2. xarelto is ok if needed
3. diet fine
4. outpatient f/u for capsule and f/u Dr Roblero
will sign off
[2023-10-14] MEDS: INDERAL LA 80 MG PO (11:13)
[2023-10-14] MEDS: DALIRESP 500 MCG PO (11:13)
[2023-10-14] MEDS: SINEMET 25-100 1 TABLET PO ×3 (11:13→21:29)
[2023-10-14] MEDS: CRESTOR 20 MG PO (11:13)
[2023-10-14] MEDS: DUONEB INH ×2 (11:49→14:10)
[2023-10-14] MEDS: FERRLECIT 110 MG IV (13:47)
[2023-10-14] MEDS: VITAMIN D3 (cholecalciferol) 50 MCG PO (17:50)
[2023-10-14] MEDS: VITAMIN C 500 MG PO (20:13)
[2023-10-14] MEDS: COLACE 100 MG PO (21:29)
[2023-10-14] MEDS: NON-FORMULARY ITEM 5 MG PO (21:30)
--- NOTE | 2023-10-15 05:53 | PTCARENOTE ---
Pt sleeping well t/o the night with Pt own CPAP in place. No changes in assessment noted at this time. Vitals stable. Will continue to monitor.
[2023-10-15 06:46] LABS: Hematocrit 25.9 % (39.0-52.0); Hemoglobin 7.5 g/dL (13.0-18.0); Mean Corpuscular Hgb 20.8 pg (27.0-31.0); Mean Corpuscular Volume 71.9 fL (80.0-94.0); Platelet Count 90 10^3/uL (130-400); Red Cell Dist. Width 25.5 % (11.5-14.5); White Blood Cell Count 2.9 10^3/uL (4.8-10.8)
[2023-10-15 07:06] LABS: Blood Urea Nitrogen 9 mg/dl (9-20); Calcium 9.3 mg/dl (8.4-10.2); Carbon Dioxide 30 mmol/L (22-30); Chloride 102 mmol/L (98-107); Estimated Creatinine Clearance > 125 ml/min; Glucose 91 mg/dl (70-99); Magnesium 1.6 mg/dl (1.6-2.3); Phosphorus 4.3 mg/dl (2.5-4.5); Potassium 3.8 mmol/L (3.5-5.1); Sodium 139 mmol/L (135-145); eGFR > 60.00
[2023-10-15 07:15] VITALS: BP 115/54
--- NOTE | 2023-10-15 07:37 | W.PN.HOSP.TC ---
Addendum entered and electronically signed by Martínez Serrano MD 10/18/23 09:25:
Anemia suspected GI bleed likely exacerbated by Xarelto
Acute vs Chronic Blood loss of anemia, suspect initial severe anemia on presentation was a mix of both.
Original Note:
Today's Communication/Plan
-
transfuse one PRBC
surveillance monitor
resume Xarelto
monitor H&H
Assessment / Plan
Assessment / Plan
Physical Exam
General: No pallor, cyanosis, or jaundice. obese
HEENT: Throat clear. PERRLA Normocephalic atraumatic
NECK: Supple. No JVD Carotid Bruits
RESPIRATORY: Lungs clear to auscultation. No crackles wheezes stridor
CVS: S1, S2 normal. RRR. No murmur, rub or gallop.
ABDOMEN: Soft, non-tender. No distension. BS+/normal.
EXTREMITIES: No peripheral cyanosis or edema.
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 No focal deficits.
IMPRESSION:
62 male history Colon Ectasia hypertension COPD A-fib Xarelto diverticulosis Parkinson # cirrhosis presents with incidental finding severe anemia on routine annual lab follow-up with primary. Referred to ED for further evaluation, patient reports
usual state of health denies any acute issues. Reports overall feeling well. Denies fevers chills nausea vomiting diarrhea constipation bloody or dark stools chest pain palpitations or abdomen pain. Does report occasional lightheadedness pallor.
Vital signs stable on room air. Labs notable for pancytopenia, hemoglobin 6.1. Iron deficiency noted with elevated TIBC, low ferritin.
PLAN:
#Severe Anemia Suspected GI bleed
#Pancytopenia possibly 2/2 BENDER cirrhosis
#Hx Colon Ectasia
#Diverticulosis
Monitor H&H and transfuse for goal Hgb>7.5
trend H&H WBC Platelets
GI eval appreciated EGD/colonoscopy completed
ok to resume Xarelto as per GI
IV protonix BID
Endoscopy
- Grade II esophageal varices with no stigmata of recent bleeding.
- Gastritis. Biopsied.
- Gastric nodules (2) in the gastric body. Biopsied.
- Normal examined duodenum
Colonscopy
- Seven non-bleeding colonic angiodysplastic lesions. Treated with argon plasma coagulation (APC).
- Diverticulosis in the left colon.
- Internal hemorrhoids.
- No specimens collected
#HTN
cont home Propranolol Lasix with holding parameters
#COPD
stable respiratory status on room air
cont home Trelegy Daliresp or equivalent
cont home Duoneb R QID
#paroxysmal Afib
currently normal sinus rhythm
Xarelto resumed
cont home Propranolol
#Parkinson
Cont home Sinemet
#BPH
cont home tadalafil
dvt ppx SCD
Full Code
I spent a total of 50 minutes with the patient or on the floor. More than 50% of this time involved counseling and coordination of care.
Anticipated Discharge: Within 24 hours
Subjective/Interval History
-
Date of Service: October 15, 2023
No acute distress appears comfortable. Denies new acute issues. Reports feeling well. Day's event notable for concern possible afib rvr per nurse assessment, self limited asymptomatic spontaneously resolved. phototypesetting equipment monitor started
Objective Data
-
Labs:
Laboratory Results
10/15/23
06:17
WBC 2.9 L
Hgb 7.5 L
Hct 25.9 L
Plt Count 90 L D
Sodium 139
Potassium 3.8
Chloride 102
Carbon Dioxide 30
BUN 9
Creatinine 0.6 L
Glucose 91
Calcium 9.3
Vital Signs:
Vital Signs
Temp Pulse Resp BP Pulse Ox
97.8 F 65 20 114/56 95
08/26/24 23:45 10/14/23 23:45 10/14/23 23:45 10/14/23 23:45 10/14/23 23:45
I&O
10/14/23 10/15/23 10/16/23
06:59 06:59 06:59
Intake Total 210 / 210 480 / 480
Balance 210 / 210 480 / 480
[2023-10-15] MEDS: NON-FORMULARY ITEM 1 INH INH (07:58)
[2023-10-15] MEDS: DUONEB 3 ML INH ×3 (08:01→20:26)
[2023-10-15] MEDS: PROTONIX IV 40 MG IV ×2 (08:40→20:18)
[2023-10-15] MEDS: VITAMIN C 500 MG PO ×2 (08:47→20:18)
[2023-10-15] MEDS: LASIX 40 MG PO (08:47)
[2023-10-15] MEDS: NSS (PRESERVATIVE FREE) 10 ML IV ×2 (08:48→20:18)
[2023-10-15] MEDS: SINEMET 25-100 1 TABLET PO ×3 (11:14→21:24)
[2023-10-15] MEDS: CRESTOR 20 MG PO (11:14)
[2023-10-15] MEDS: INDERAL LA 80 MG PO (11:14)
[2023-10-15] MEDS: DALIRESP 500 MCG PO (11:14)
--- NOTE | 2023-10-15 12:32 | CM ---
Patient seen bedside.
Per patient plan is fo blood transfusion, possible d/c tomorrow.
Has CPAP at home, (here in room)
Has transportation home.
IMM completed.
Plan: home no needs.
[2023-10-15] MEDS: FERRLECIT 110 MG IV (14:04)
[2023-10-15 15:52] VITALS: BP 108/72
[2023-10-15 15:55] VITALS: BP 108/72
--- NOTE | 2023-10-15 16:10 | PTCARENOTE ---
Prior to starting blood, patient reported that he felt as if he was in A-Fib. Apical and radial pulse irregular, HR 120's on Vital Sign Monitor. Notified covering provider. To obtain EKG, place patient back on telemetry. Prior to EKG, patient
self-vagal'd (held his breath and pushed) to attempt to break A-fib and HR dropped back to 60's.
Patient now on monitor, HR 60's. Currently SR with BBB.
[2023-10-15] MEDS: VITAMIN D3 (cholecalciferol) 50 MCG PO (17:16)
[2023-10-15] MEDS: XARELTO 20 MG PO (17:16)
[2023-10-15 19:30] VITALS: BP 115/53
[2023-10-15] MEDS: NON-FORMULARY ITEM 5 MG PO (21:25)
[2023-10-15] MEDS: COLACE 100 MG PO (21:25)
[2023-10-15 23:00] VITALS: BP 137/62
[2023-10-16 03:00] VITALS: BP 133/64
--- NOTE | 2023-10-16 03:05 | PTCARENOTE ---
Received report from nightshift RN. Pt resting comfortably in bed, CPAP present. AAOx3. No complaints of pain. Telemetry strip displayed normal sinus rhythm with a first degree, BBB, and prolonged qt. Abdomen round, obese. SCD's on. Will continue to
monitor.
--- NOTE | 2023-10-16 07:30 | W.PN.HOSP.TC ---
Today's Communication/Plan
-
Monitor H&H
discharge planning tomorrow provided H&H remains stable
Assessment / Plan
Assessment / Plan
Physical Exam
General: No pallor, cyanosis, or jaundice. obese
HEENT: Throat clear. PERRLA Normocephalic atraumatic
NECK: Supple. No JVD Carotid Bruits
RESPIRATORY: Lungs clear to auscultation. No crackles wheezes stridor
CVS: S1, S2 normal. RRR. No murmur, rub or gallop.
ABDOMEN: Soft, non-tender. No distension. BS+/normal.
EXTREMITIES: No peripheral cyanosis or edema.
PANEL MAKER: AOx3. No focal deficits.
IMPRESSION:
62 male history Colon Ectasia hypertension COPD A-fib Xarelto diverticulosis Parkinson # cirrhosis presents with incidental finding severe anemia on routine annual lab follow-up with primary. Referred to ED for further evaluation, patient reports
usual state of health denies any acute issues. Reports overall feeling well. Denies fevers chills nausea vomiting diarrhea constipation bloody or dark stools chest pain palpitations or abdomen pain. Does report occasional lightheadedness pallor.
Vital signs stable on room air. Labs notable for pancytopenia, hemoglobin 6.1. Iron deficiency noted with elevated TIBC, low ferritin.
PLAN:
#Severe Anemia Suspected GI bleed
#Pancytopenia possibly 2/2 BENDER cirrhosis
#Hx Colon Ectasia
#Diverticulosis
Monitor H&H and transfuse for goal Hgb>7.5
trend H&H WBC Platelets
GI eval appreciated EGD/colonoscopy completed
ok to resume Xarelto as per GI
IV protonix BID
Resumed Xarelto 10/14 and received 1PRBC for Hgb 7.5 with subsequent appropriate response to 8.5
monitor H&H
Endoscopy
- Grade II esophageal varices with no stigmata of recent bleeding.
- Gastritis. Biopsied.
- Gastric nodules (2) in the gastric body. Biopsied.
- Normal examined duodenum
Colonscopy
- Seven non-bleeding colonic angiodysplastic lesions. Treated with argon plasma coagulation (APC).
- Diverticulosis in the left colon.
- Internal hemorrhoids.
- No specimens collected
#HTN
cont home Propranolol Lasix with holding parameters
#COPD
stable respiratory status on room air
cont home Trelegy Daliresp or equivalent
cont home Duoneb R QID
#paroxysmal Afib
currently normal sinus rhythm
Xarelto resumed
cont home Propranolol
#Parkinson
Cont home Sinemet
#BPH
cont home tadalafil
dvt ppx SCD
Full Code
I spent a total of 40 minutes with the patient or on the floor. More than 50% of this time involved counseling and coordination of care.
Anticipated Discharge: Within 24 hours
Subjective/Interval History
-
Date of Service: October 16, 2023
No acute distress. Appears comfortable however patient apprehensive regarding discharge. Concern blood will drop again when he's home without him knowing. Discussed plan to monitor for one more day and recommendation to obtain outpatient lab with
primary following discharge. Patient agreeable with plan.
Objective Data
-
Labs:
Laboratory Results
10/16/23
06:45
WBC Pending
Hgb Pending
Hct Pending
Plt Count Pending
Sodium Pending
Potassium Pending
Chloride Pending
Carbon Dioxide Pending
BUN Pending
Creatinine Pending
Glucose Pending
Calcium Pending
Vital Signs:
Vital Signs
Temp Pulse Resp BP Pulse Ox
97.5 F 60 16 133/64 93
10/16/23 03:00 10/16/23 03:00 10/16/23 03:00 10/16/23 03:00 10/16/23 03:00
I&O
10/15/23 10/16/23 10/17/23
06:59 06:59 06:59
Intake Total 480 / 480 480 / 480
Output Total 0 / 0
Balance 480 / 480 480 / 480
[2023-10-16 07:32] LABS: Blood Urea Nitrogen 9 mg/dl (9-20); Calcium 9.4 mg/dl (8.4-10.2); Carbon Dioxide 28 mmol/L (22-30); Chloride 103 mmol/L (98-107); Estimated Creatinine Clearance > 125 ml/min; Glucose 86 mg/dl (70-99); Magnesium 1.6 mg/dl (1.6-2.3); Phosphorus 4.6 mg/dl (2.5-4.5); Sodium 141 mmol/L (135-145); eGFR > 60.00
[2023-10-16 07:38] LABS: Hematocrit 28.9 % (39.0-52.0); Hemoglobin 8.5 g/dL (13.0-18.0); Mean Corp Hgb Conc. 29.4 g/dL (33.0-37.0); Mean Corpuscular Hgb 21.7 pg (27.0-31.0); Mean Corpuscular Volume 73.9 fL (80.0-94.0); Platelet Count 87 10^3/uL (130-400); Red Blood Cell Count 3.91 10^6/uL (4.70-6.10); Red Cell Dist. Width 26.5 % (11.5-14.5); White Blood Cell Count 2.8 10^3/uL (4.8-10.8)
[2023-10-16 07:45] VITALS: BP 127/58
[2023-10-16] MEDS: NON-FORMULARY ITEM 1 INH INH (07:45)
[2023-10-16] MEDS: DUONEB 3 ML INH ×4 (07:45→20:09)
[2023-10-16] MEDS: VITAMIN C 500 MG PO ×2 (08:50→20:42)
[2023-10-16] MEDS: LASIX 40 MG PO (08:50)
[2023-10-16] MEDS: PROTONIX IV 40 MG IV ×2 (08:50→20:42)
[2023-10-16] MEDS: NSS (PRESERVATIVE FREE) 10 ML IV ×2 (08:50→20:41)
--- NOTE | 2023-10-16 10:13 | PN.CDI ---
CDI
- -
CDI:
Physician Documentation Request
Admit Date: 10/10/23 17:52
Dear Doctor Zach,
Clinical Indicators:
Patient admitted with severe anemia.
H & P, 'Does report occasional lightheadedness pallor...Iron deficiency noted with elevated TIBC, low ferritin.'
10/13 GI update note, 'Bleeding sites likely AVMs: 7 cauterized in the colon'
10/14 PN, 'Severe Anemia Suspected GI bleed'
3 units PRBCs transfused
Hgb/Hct trend:
10/11/23 10/12/23
08:16 05:56
Hgb 7.5 L D 8.6 L D
Hct 26.9 L 30.4 L
10/13/23 10/14/23 10/15/23
06:21 06:36 06:17
Hgb 7.8 L 8.3 L 7.5 L
Hct 27.8 L 29.2 L 25.9 L
Based on the above, could you clarify, in your progress note, which of the following is the most likely type of anemia you are evaluating, monitoring and/or treating?
Acute blood loss anemia with chronic iron deficiency anemia
Chronic iron deficiency anemia due to chronic blood loss
Other, please specify
Use of terms such as suspected, likely, concern for, or probable (associated with a specific diagnosis that is being evaluated, monitored, or treated as if it exists) are acceptable and can be coded in the inpatient setting, when documented at the
time of discharge.
Thank you,
Luisa Juarez RN BSN
CDI Specialist
available via tiger text
Please use your independent medical judgment in providing your response.
--- NOTE | 2023-10-16 10:26 | PN.CDI ---
CDI
- -
CDI:
Physician Documentation Request
Admit Date: 10/10/23 17:52
Dear Doctor Zach,
Clinical Indicators:
Patient admitted with severe anemia.
H & P, PN, 'Severe Anemia Suspected GI bleed'
Home medications include: Rivaroxaban 20 mg tablet (Xarelto) 20 mg PO QPM.
Xarelto held 10/09-10/14
Please clarify the likely relationship between the anemia and the Xarelto use:
Yes, anemia is related to/associated with/exacerbated by Xarelto.
No, anemia is not related to/associated with/exacerbated by Xarelto use but it is due to ___. (Please specify)
Unable to determine
Use of terms such as suspected, likely, concern for, or probable (associated with a specific diagnosis that is being evaluated, monitored, or treated as if it exists) are acceptable and can be coded in the inpatient setting, when documented at the
time of discharge.
Thank you,
Luisa Juarez RN BSN
CDI Specialist
available via tiger text
Please use your independent medical judgment in providing your response.
[2023-10-16] MEDS: CRESTOR 20 MG PO (11:21)
[2023-10-16] MEDS: INDERAL LA 80 MG PO (11:22)
[2023-10-16] MEDS: DALIRESP 500 MCG PO (11:22)
[2023-10-16] MEDS: SINEMET 25-100 1 TABLET PO ×3 (11:22→23:40)
[2023-10-16 11:59] VITALS: BP 136/60
--- NOTE | 2023-10-16 13:00 | W.PN.UPDATE ---
Update Note
Progress Note Update
reviewed EGD/colon with patient. With continue anemia consider OP hematology evaluation. I sent message to arrange GI follow up. Pt wishes to arrange OP capsule will message office to arrange.
[2023-10-16 16:00] VITALS: BP 128/61
[2023-10-16] MEDS: VITAMIN D3 (cholecalciferol) 50 MCG PO (18:50)
[2023-10-16] MEDS: XARELTO 20 MG PO (18:50)
[2023-10-16 20:06] VITALS: BP 119/60
[2023-10-16] MEDS: NON-FORMULARY ITEM 5 MG PO (22:11)
[2023-10-16] MEDS: COLACE 100 MG PO (22:11)
[2023-10-16 23:30] VITALS: BP 126/63
[2023-10-17 03:28] VITALS: BP 133/68
--- NOTE | 2023-10-17 04:34 | PTCARENOTE ---
Pt reported blood coming from penis after voiding. Small of blood on toilet paper. Pt expressed concern. Kyler KING made aware. UA ordered. Will continue to monitor.
[2023-10-17 07:19] LABS: Hematocrit 28.9 % (39.0-52.0); Hemoglobin 8.4 g/dL (13.0-18.0); Mean Corp Hgb Conc. 29.1 g/dL (33.0-37.0); Mean Corpuscular Hgb 21.8 pg (27.0-31.0); Mean Corpuscular Volume 75.1 fL (80.0-94.0); Platelet Count 83 10^3/uL (130-400); Red Blood Cell Count 3.85 10^6/uL (4.70-6.10); Red Cell Dist. Width 27.4 % (11.5-14.5); White Blood Cell Count 3.3 10^3/uL (4.8-10.8)
[2023-10-17] MEDS: NON-FORMULARY ITEM 1 INH INH (07:34)
[2023-10-17] MEDS: DUONEB 3 ML INH ×4 (07:34→19:22)
[2023-10-17 07:35] LABS: Blood Urea Nitrogen 13 mg/dl (9-20); Calcium 9.2 mg/dl (8.4-10.2); Carbon Dioxide 32 mmol/L (22-30); Chloride 101 mmol/L (98-107); Estimated Creatinine Clearance > 125 ml/min; Glucose 102 mg/dl (70-99); Magnesium 1.5 mg/dl (1.6-2.3); Phosphorus 3.5 mg/dl (2.5-4.5); Potassium 3.8 mmol/L (3.5-5.1); Sodium 142 mmol/L (135-145); eGFR > 60.00
[2023-10-17 07:37] VITALS: BP 132/65
[2023-10-17] MEDS: VITAMIN C 500 MG PO ×2 (07:50→19:49)
[2023-10-17] MEDS: LASIX 40 MG PO (07:50)
[2023-10-17] MEDS: NSS (PRESERVATIVE FREE) 10 ML IV ×2 (07:50→19:48)
[2023-10-17] MEDS: PROTONIX IV 40 MG IV ×2 (07:51→19:49)
[2023-10-17 09:13] LABS: Urine Albumin Negative (Neg - Trace); Urine Bilirubin Negative (Negative); Urine Character Clear (Clear); Urine Color Yellow; Urine Glucose Negative (Negative); Urine Ketone Negative (Negative); Urine Leukocyte 1+ (Negative); Urine Nitrite Negative (Negative); Urine Occult Blood 1+ (Negative); Urine Urobilinogen 2+ (Neg - 1+)
[2023-10-17 09:21] LABS: Urine Bacteria Few (Negative); Urine Red Blood Cell 21-25 /HPF (0-2)
[2023-10-17] MEDS: LOPRESSOR 5 MG IV (09:42)
[2023-10-17] MEDS: MAGNESIUM SULFATE 50 IV (09:44)
[2023-10-17] MEDS: SINEMET 25-100 1 TABLET PO ×3 (10:29→21:03)
[2023-10-17] MEDS: KCL 20 MEQ PO (10:29)
--- NOTE | 2023-10-17 11:00 | PTCARENOTE ---
Pt alarming on telemetry monitors for a fib with RVR sustaining in the 140s, pt reports heart pounding. MD Stark made aware. IV magnesium and PO potassium ordered and administered, PRN IV lopressor given. Pt now in sinus rhythm in the 60s, pt
resting comfortably in room stating heart is no longer pounding. Plan of care ongoing.
[2023-10-17 12:00] VITALS: BP 107/53
--- NOTE | 2023-10-17 12:42 | W.PN.HOSP.TC ---
Today's Communication/Plan
-
Monitor vital signs
see plan
Replete magnesium and potassium
Monitor hemoglobin
IV Lopressor given
Assessment / Plan
Assessment / Plan
Physical Exam
General: No pallor, cyanosis, or jaundice. obese
HEENT: Throat clear. PERRLA Normocephalic atraumatic
NECK: Supple. No JVD Carotid Bruits
RESPIRATORY: Lungs clear to auscultation. No crackles wheezes stridor
CVS: S1, S2 normal. RRR. No murmur, rub or gallop.
ABDOMEN: Soft, non-tender. No distension. BS+/normal.
EXTREMITIES: No peripheral cyanosis or edema.
TITLE SEARCHER: AOx3. No focal deficits.
IMPRESSION:
62 male history Colon Ectasia hypertension COPD A-fib Xarelto diverticulosis Parkinson # cirrhosis presents with incidental finding severe anemia on routine annual lab follow-up with primary. Referred to ED for further evaluation, patient reports
usual state of health denies any acute issues. Reports overall feeling well. Denies fevers chills nausea vomiting diarrhea constipation bloody or dark stools chest pain palpitations or abdomen pain. Does report occasional lightheadedness pallor.
Vital signs stable on room air. Labs notable for pancytopenia, hemoglobin 6.1. Iron deficiency noted with elevated TIBC, low ferritin.
PLAN:
#Severe Anemia Suspected GI bleed
#Pancytopenia possibly 2/2 BENDER cirrhosis
#Hx Colon Ectasia
#Diverticulosis
Monitor H&H and transfuse for goal Hgb>7.5
trend H&H WBC Platelets
GI eval appreciated EGD/colonoscopy completed
ok to resume Xarelto as per GI
IV protonix BID
Resumed Xarelto 10/14 and received 1PRBC for Hgb 7.5 with subsequent appropriate response to 8.5.outpatient f/u for capsule and f/u Dr Roblero
monitor H&H
Endoscopy
- Grade II esophageal varices with no stigmata of recent bleeding.
- Gastritis. Biopsied.
- Gastric nodules (2) in the gastric body. Biopsied.
- Normal examined duodenum
Colonscopy
- Seven non-bleeding colonic angiodysplastic lesions. Treated with argon plasma coagulation (APC).
- Diverticulosis in the left colon.
- Internal hemorrhoids.
- No specimens collected
Hypomagnesemia
replete
#HTN
cont home Propranolol Lasix with holding parameters
#COPD
stable respiratory status on room air
cont home Trelegy Daliresp or equivalent
cont home Duoneb R QID
#paroxysmal Afib
Went into A-fib with RVR 10/16. IV metoprolol given. Monitor
Xarelto resumed
cont home Propranolol
Mild hematuria, now resolved. UA with RBC however no signs of infection
#Parkinson
Cont home Sinemet
#BPH
cont home tadalafil
dvt ppx SCD
Full Code
Anticipated Discharge: Within 24 hours
Subjective/Interval History
-
Date of Service: October 17, 2023
denies pain
Objective Data
-
Labs:
Laboratory Results
10/17/23 10/17/23
06:07 06:08
WBC 3.3 L
Hgb 8.4 L
Hct 28.9 L
Plt Count 83 L
Sodium 142
Potassium 3.8
Chloride 101
Carbon Dioxide 32 H
BUN 13
Creatinine 0.7
Glucose 102 H
Calcium 9.2
Vital Signs:
Vital Signs
Temp Pulse Resp BP Pulse Ox
98.4 F 66 16 107/53 94
10/17/23 12:00 10/17/23 12:00 10/17/23 12:00 10/17/23 12:00 10/17/23 12:00
I&O
10/16/23 10/17/23 10/18/23
06:59 06:59 06:59
Intake Total 480 / 480 1260 / 1260
Output Total 0 / 0
Balance 480 / 480 1260 / 1260
[2023-10-17] MEDS: DALIRESP 500 MCG PO (13:32)
[2023-10-17] MEDS: INDERAL LA 80 MG PO (13:32)
[2023-10-17] MEDS: CRESTOR 20 MG PO (13:32)
[2023-10-17 16:20] VITALS: BP 119/61
--- NOTE | 2023-10-17 16:35 | CM ---
Patient ambulating around the room independently. Still wants to return home at discharge.
Plan: Case management will continue to follow and assist with discharge planning. Home when stable.
[2023-10-17] MEDS: VITAMIN D3 (cholecalciferol) 50 MCG PO (18:00)
[2023-10-17] MEDS: SINEMET 25-100 PO (18:00)
[2023-10-17] MEDS: XARELTO 20 MG PO (18:00)
[2023-10-17 19:10] VITALS: BP 112/51
[2023-10-17] MEDS: COLACE 100 MG PO (21:02)
[2023-10-17] MEDS: NON-FORMULARY ITEM 5 MG PO (21:02)
[2023-10-17 23:15] VITALS: BP 136/64
[2023-10-18 03:05] VITALS: BP 118/56
[2023-10-18] MEDS: DUONEB 3 ML INH ×2 (07:22→11:22)
[2023-10-18] MEDS: NON-FORMULARY ITEM 1 INH INH (07:23)
[2023-10-18 07:31] VITALS: BP 138/61
[2023-10-18 08:41] LABS: Hematocrit 32.2 % (39.0-52.0); Hemoglobin 9.3 g/dL (13.0-18.0); Mean Corp Hgb Conc. 28.9 g/dL (33.0-37.0); Mean Corpuscular Volume 76.3 fL (80.0-94.0); Platelet Count 89 10^3/uL (130-400); Red Blood Cell Count 4.22 10^6/uL (4.70-6.10); White Blood Cell Count 3.9 10^3/uL (4.8-10.8)
[2023-10-18 08:47] LABS: Blood Urea Nitrogen 13 mg/dl (9-20); Calcium 9.4 mg/dl (8.4-10.2); Carbon Dioxide 34 mmol/L (22-30); Chloride 101 mmol/L (98-107); Estimated Creatinine Clearance > 125 ml/min; Glucose 101 mg/dl (70-99); Magnesium 1.6 mg/dl (1.6-2.3); Sodium 143 mmol/L (135-145); eGFR > 60.00
[2023-10-18] MEDS: LASIX 40 MG PO (09:10)
[2023-10-18] MEDS: NSS (PRESERVATIVE FREE) 10 ML IV (09:10)
[2023-10-18] MEDS: PROTONIX IV 40 MG IV (09:11)
[2023-10-18] MEDS: VITAMIN C 500 MG PO (09:11)
[2023-10-18] MEDS: MAGNESIUM OXIDE 500 MG PO (10:09)
--- NOTE | 2023-10-18 11:08 | W.PN.HOSP.TC ---
Today's Communication/Plan
-
Monitor vital signs see plan
Monitor hemoglobin
Discharge today
Time of discharge 37 minutes
Assessment / Plan
Assessment / Plan
Physical Exam
General: No pallor, cyanosis, or jaundice. obese
HEENT: Throat clear. PERRLA Normocephalic atraumatic
NECK: Supple. No JVD Carotid Bruits
RESPIRATORY: Lungs clear to auscultation. No crackles wheezes stridor
CVS: S1, S2 normal. RRR. No murmur, rub or gallop.
ABDOMEN: Soft, non-tender. No distension. BS+/normal.
EXTREMITIES: No peripheral cyanosis or edema.
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 No focal deficits.
IMPRESSION:
62 male history Colon Ectasia hypertension COPD A-fib Xarelto diverticulosis Parkinson # cirrhosis presents with incidental finding severe anemia on routine annual lab follow-up with primary. Referred to ED for further evaluation, patient reports
usual state of health denies any acute issues. Reports overall feeling well. Denies fevers chills nausea vomiting diarrhea constipation bloody or dark stools chest pain palpitations or abdomen pain. Does report occasional lightheadedness pallor.
Vital signs stable on room air. Labs notable for pancytopenia, hemoglobin 6.1. Iron deficiency noted with elevated TIBC, low ferritin.
PLAN:
#Severe Anemia Suspected GI bleed suspect likely exacerbated by Xarelto
Acute blood loss anemia with chronic iron deficiency anemia
#Pancytopenia possibly 2/2 BENDER cirrhosis
#Hx Colon Ectasia
#Diverticulosis
Monitor H&H and transfuse for goal Hgb>7.5
trend H&H WBC Platelets
GI eval appreciated EGD/colonoscopy completed
ok to resume Xarelto as per GI
protonix BID
Resumed Xarelto 10/14 and received 1PRBC for Hgb 7.5 with subsequent appropriate response to 8.5.outpatient f/u for capsule and f/u Dr Roblero
monitor H&H
Endoscopy
- Grade II esophageal varices with no stigmata of recent bleeding.
- Gastritis. Biopsied.
- Gastric nodules (2) in the gastric body. Biopsied.
- Normal examined duodenum
Colonscopy
- Seven non-bleeding colonic angiodysplastic lesions. Treated with argon plasma coagulation (APC).
- Diverticulosis in the left colon.
- Internal hemorrhoids.
- No specimens collected
Hypomagnesemia
replete
#HTN
cont home Propranolol Lasix with holding parameters
#COPD
stable respiratory status on room air
cont home Trelegy Daliresp or equivalent
cont home Duoneb R QID
#paroxysmal Afib
Went into A-fib with RVR 10/16. IV metoprolol given. Monitor. now in NSR
Xarelto resumed
cont home Propranolol
Mild hematuria, now resolved. UA with RBC however no signs of infection
#Parkinson
Cont home Sinemet
#BPH
cont home tadalafil
dvt ppx SCD
Full Code
Anticipated Discharge: Today
Subjective/Interval History
-
Date of Service: October 18, 2023
Denies chest pain, palpitation
Objective Data
-
Labs:
Laboratory Results
10/18/23
08:24
WBC 3.9 L
Hgb 9.3 L
Hct 32.2 L
Plt Count 89 L
Sodium 143
Potassium 4.0
Chloride 101
Carbon Dioxide 34 H
BUN 13
Creatinine 0.7
Glucose 101 H
Calcium 9.4
Vital Signs:
Vital Signs
Temp Pulse Resp BP Pulse Ox
98.5 F 66 16 138/61 92
10/18/23 07:31 10/18/23 07:31 10/18/23 07:31 10/18/23 07:31 10/18/23 07:31
I&O
10/17/23 10/18/23 10/19/23
06:59 06:59 06:59
Intake Total 1260 / 1260 1260 / 1260 240 / 240
Balance 1260 / 1260 1260 / 1260 240 / 240
[2023-10-18 11:09] VITALS: BP 110/58
--- NOTE | 2023-10-18 11:24 | W.DCSUMMARY ---
Discharge Summary
Discharge Data
Date of Admission: 10/10/23
Date of Discharge: 10/18/23
-
Pending Results: No
Hospital Course
62-year-old male with past medical history of coronary ectasia, hypertension, COPD, A-fib on Xarelto, diverticulosis, Parkinson's disease, cirrhosis, anemia came to the hospital with severe anemia which was likely thought was secondary to acute
blood loss anemia with chronic iron deficiency anemia. Patient was seen by gastroenterology and underwent endoscopy which showed esophageal varices with no active recent bleeding. He then later got a colonoscopy which showed multiple
angiodysplastic lesions treated with APC. Patient also received blood transfusion on this hospitalization. Gastroenterology recommended patient to follow-up with them closely outpatient for capsule endoscopy. On discharge patient was also
instructed to follow-up with hematology outpatient. While patient was in the hospital he also underwent into atrial fibrillation however converted back to normal sinus rhythm prior to discharge. Once his symptoms continue to improve and his
hemoglobin was stable, he was then discharged home with instructions to follow-up with all his physicians outpatient.
Discharge Plan
-
Patient Disposition: Home (Routine Discharge)
Discharge Diagnosis/Procedures: Severe Anemia Suspected GI bleed suspect likely exacerbated by Xarelto
Acute blood loss anemia with chronic iron deficiency anemia
Paroxysmal atrial fibrillation with rapid ventricular rate
Hypomagnesemia
Diet: As tolerated
Activity: As tolerated
Driving Restrictions: As prior to admission
Bathing Restrictions: None
Referrals:
Rebecca Marcelino MD [Active] - (call to arrange OP follow up with hematology with continued anemia. )
Darcy Roblero DO [Active] - (please call to arrange follow up visit with recent anemia and capsule testing )
Talib Nava DO [Family Provider] - in one week
Prescriptions:
New
pantoprazole [Protonix] 40 mg tablet,delayed release (DR/EC)
40 mg PO BID Qty: 60 0RF
Continued
docusate sodium 100 MG capsule
100 mg PO HS
cholecalciferol (vitamin D3) 2,000 UNITS tablet
2,000 unit PO QPM
ascorbic acid (vitamin C) [Vitamin C] 500 MG tablet
500 mg PO BID
roflumilast [Daliresp] 500 MCG tablet
500 mcg PO NOON
rosuvastatin 20 MG tablet
20 mg PO NOON
Xarelto 20 MG tablet
20 mg PO QPM Qty: 30 2RF
furosemide [Lasix] 40 mg Tablet
40 mg PO DAILY
carbidopa-levodopa [Sinemet] 25-100 mg Tablet
1 tab PO TID@1100,1800,2200
ipratropium-albuterol 0.5 mg-3 mg(2.5 mg base)/3 mL Solution For Nebulization
3 ml INHALATION R QID
albuterol sulfate 90 mcg/actuation Hfa Aerosol Inhaler
2 puff INHALATION R Q4HPRN PRN (Reason: sob)
tadalafil 5 mg Tablet
5 mg PO HS
Trelegy Ellipta 200-62.5-25 mcg Blister With Device
1 inh INHALATION R DAILY
propranolol 80 MG capsule,extended release 24 hr
80 mg PO NOON
Discontinued
lansoprazole 30 MG tablet,disintegrat, delay rel
30 mg PO DAILY
Discharge Orders:
Discharge Patient (As Directed); Ordered 10/18/23
Ordered By: Sandeep Stark
Discharge Date and Time
Discharge Date/Time: 10/18/23 14:27
Print Language: BURMESE
--- NOTE | 2023-10-18 11:44 | CM ---
Reviewed chart, patient medically cleared for discharge. Signed IMM. Now on chart. He stated that his will come pick him up.
Plan: Case management will continue to follow and assist with discharge planning. Home.
[2023-10-18] MEDS: SINEMET 25-100 1 TABLET PO (12:10)
[2023-10-18] MEDS: DALIRESP 500 MCG PO (12:11)
[2023-10-18] MEDS: INDERAL LA 80 MG PO (12:11)
[2023-10-18] MEDS: CRESTOR 20 MG PO (12:11)
== END 2023-10-18 14:27 | disposition home or self-care (01) | DRG 378 ==
LOC: 3 WEST ACU 17:52
PROVIDERS: Internal Medicine; Nurse Practitioner Adult Health; Nurse Practitioner Gerontology; ADMITTING PHYSICIAN Internal Medicine; ATTENDING PHYSICIAN Internal Medicine; CONSULT PHYSICIAN Specialist; EMERGENCY PHYSICIAN Emergency Medicine; FAMILY PHYSICIAN Internal Medicine
PROC: 30233N1 Transfusion of Nonautologous Red Blood Cells into Peripheral Vein, Percutaneous Approach (ICD-10-PCS; 2023-10-10)
PROC: 0D5E8ZZ Destruction of Large Intestine, Via Natural or Artificial Opening Endoscopic (ICD-10-PCS; 2023-10-14)
PROC: 0DB68ZX Excision of Stomach, Via Natural or Artificial Opening Endoscopic, Diagnostic (ICD-10-PCS; 2023-10-14)
DX: K55.21 Angiodysplasia of colon with hemorrhage (principal); D61.818 Other pancytopenia; D62 Acute posthemorrhagic anemia; I85.10 Secondary esophageal varices without bleeding; D68.32 Hemorrhagic disorder due to extrinsic circulating anticoagulants; K29.70 Gastritis, unspecified, without bleeding; K31.7 Polyp of stomach and duodenum; K57.30 Diverticulosis of large intestine without perforation or abscess without bleeding; K64.8 Other hemorrhoids; K75.81 Nonalcoholic steatohepatitis (NASH); G20.A1 Parkinson's disease without dyskinesia, without mention of fluctuations; E83.42 Hypomagnesemia; I10 Essential (primary) hypertension; I48.0 Paroxysmal atrial fibrillation; Z79.01 Long term (current) use of anticoagulants
CPT/HCPCS: 88305; 36430; 80048; 81003; 81015; 83735; 84100; 85014; 85018; 85027; 85610; 85730; 86850; 86900; 86901; 86920; 87086; 93005; 94640; 99285; J2916; P9016

== ENCOUNTER → 2023-10-28 07:31 | Outpatient (REF) | payer OTHER, SELFPAY | LOC: MRI 07:31 | PROVIDERS: ATTENDING PHYSICIAN Internal Medicine | DX: K74.60 Unspecified cirrhosis of liver (principal) | CPT/HCPCS: 74181 ==

== ENCOUNTER → 2023-10-31 11:03 | Outpatient (REF) | payer OTHER, SELFPAY ==
[2023-10-31 12:30] LABS: Hematocrit 32.1 % (39.0-52.0); Hemoglobin 9.2 g/dL (13.0-18.0); Mean Corp Hgb Conc. 28.7 g/dL (33.0-37.0); Mean Corpuscular Hgb 22.4 pg (27.0-31.0); Mean Corpuscular Volume 78.3 fL (80.0-94.0); Platelet Count 87 10^3/uL (130-400)
[2023-10-31 12:46] LABS: Iron 35 ug/dl (49-181)
[2023-10-31 12:57] LABS: Percent Saturation 7 % (20-50); Total Iron Binding Capacity 460 ug/dl (261-462)
[2023-10-31 13:21] LABS: Ferritin 8.7 ng/ml (17.9-464.0)
[2023-10-31 13:37] LABS: Anisocytosis 1+; Band Neutrophils 0 % (0-3); Eosinophils 5 % (0-6); Hypochromasia 1+; Lymphocytes 37 % (20-51); Monocytes 15 % (2-9); Normal RBC Morphology No; Platelets Checked Yes; Segmented Neutrophils 43 % (42-75); White Blood Cell Count 2.4 10^3/uL (4.8-10.8)
[2023-10-31 13:38] LABS: Ovalocytes Few; Reticulocyte Count 2.1 % (0.4-2.8); Total Cells Counted 100
== END ==
LOC: RAD 11:03
PROVIDERS: ATTENDING PHYSICIAN Internal Medicine Hematology & Oncology; FAMILY PHYSICIAN Internal Medicine
DX: R22.41 Localized swelling, mass and lump, right lower limb (principal); D50.9 Iron deficiency anemia, unspecified
CPT/HCPCS: 36415; 82728; 83540; 83550; 85025; 85045; 93971

== ENCOUNTER → 2023-11-06 07:40 | Outpatient (REF) | payer OTHER, SELFPAY | LOC: RAD 07:40 | PROVIDERS: ATTENDING PHYSICIAN Internal Medicine Hematology & Oncology; FAMILY PHYSICIAN Internal Medicine | DX: D50.9 Iron deficiency anemia, unspecified (principal); R22.41 Localized swelling, mass and lump, right lower limb; I82.401 Acute embolism and thrombosis of unspecified deep veins of right lower extremity | CPT/HCPCS: 93971 ==

== ENCOUNTER → 2023-11-19 14:22 | Outpatient (REF) | payer OTHER, SELFPAY ==
[2023-11-19 14:38] LABS: % Eosinophils 4.8 % (0-6); % Immature Granulocytes 0.3 % (0-0.5); % Lymphocytes 32.4 % (20.5-51.1); % Monocytes 17.1 % (1.7-9.3); % Neutrophils 44.4 % (42.2-75.2); Absolute Eosinophils 0.1 10^3/uL (0-0.7); Absolute Monocytes 0.5 10^3/uL (0.1-0.6); Absolute Neutrophils 1.3 10^3/uL (1.4-6.5); Hematocrit 32.3 % (39.0-52.0); Hemoglobin 9.5 g/dL (13.0-18.0); Mean Corp Hgb Conc. 29.4 g/dL (33.0-37.0); Mean Corpuscular Hgb 22.7 pg (27.0-31.0); Mean Corpuscular Volume 77.1 fL (80.0-94.0); Nucleated Red Blood Cells % 0 % (-); Platelet Count 83 10^3/uL (130-400); Red Blood Cell Count 4.19 10^6/uL (4.70-6.10); Red Cell Dist. Width 21.4 % (11.5-14.5); White Blood Cell Count 2.9 10^3/uL (4.8-10.8)
== END ==
LOC: OIDL 14:22
PROVIDERS: ATTENDING PHYSICIAN Internal Medicine Hematology & Oncology
DX: D50.9 Iron deficiency anemia, unspecified (principal); R22.41 Localized swelling, mass and lump, right lower limb; I82.401 Acute embolism and thrombosis of unspecified deep veins of right lower extremity
CPT/HCPCS: 85025

== ENCOUNTER → 2023-11-26 14:07 | Outpatient (REF) | payer OTHER, SELFPAY ==
[2023-11-26 13:58] LABS: % Basophils 0.9 % (0-2); % Eosinophils 4.4 % (0-6); % Immature Granulocytes 0.3 % (0-0.5); % Monocytes 19.2 % (1.7-9.3); % Neutrophils 51.2 % (42.2-75.2); Absolute Eosinophils 0.1 10^3/uL (0-0.7); Absolute Lymphocytes 0.8 10^3/uL (1.2-3.4); Absolute Monocytes 0.6 10^3/uL (0.1-0.6); Absolute Neutrophils 1.6 10^3/uL (1.4-6.5); Hematocrit 33.7 % (39.0-52.0); Hemoglobin 9.9 g/dL (13.0-18.0); Mean Corp Hgb Conc. 29.4 g/dL (33.0-37.0); Mean Corpuscular Hgb 23.3 pg (27.0-31.0); Mean Corpuscular Volume 79.5 fL (80.0-94.0); Platelet Count 97 10^3/uL (130-400); Red Blood Cell Count 4.24 10^6/uL (4.70-6.10); Red Cell Dist. Width 21.4 % (11.5-14.5); White Blood Cell Count 3.2 10^3/uL (4.8-10.8)
== END ==
LOC: OIDL 14:07
PROVIDERS: ATTENDING PHYSICIAN Internal Medicine Hematology & Oncology
DX: D50.9 Iron deficiency anemia, unspecified (principal)
CPT/HCPCS: 85025

== ENCOUNTER → 2023-11-29 12:40 | Outpatient (REF) | payer OTHER, SELFPAY ==
[2023-11-29 13:59] LABS: % Eosinophils 3.2 % (0-6); % Immature Granulocytes 0.2 % (0-0.5); % Lymphocytes 23.9 % (20.5-51.1); % Monocytes 19.7 % (1.7-9.3); Absolute Eosinophils 0.1 10^3/uL (0-0.7); Absolute Monocytes 0.8 10^3/uL (0.1-0.6); Absolute Neutrophils 2.1 10^3/uL (1.4-6.5); Hematocrit 34.3 % (39.0-52.0); Hemoglobin 10.1 g/dL (13.0-18.0); Mean Corp Hgb Conc. 29.4 g/dL (33.0-37.0); Mean Corpuscular Hgb 23.1 pg (27.0-31.0); Mean Corpuscular Volume 78.3 fL (80.0-94.0); Nucleated Red Blood Cells % 0 % (-); Red Blood Cell Count 4.38 10^6/uL (4.70-6.10); Red Cell Dist. Width 22.2 % (11.5-14.5); Reticulocyte Count 2.3 % (0.4-2.8); White Blood Cell Count 4.1 10^3/uL (4.8-10.8)
[2023-11-29 14:55] LABS: Anisocytosis 1+; Hypochromasia 1+; Microcytosis 3+; Normal RBC Morphology No
[2023-11-29 14:56] LABS: Ovalocytes 1+; Polychromasia 1+
[2023-11-29 14:57] LABS: Iron 54 ug/dl (49-181)
[2023-11-29 15:06] LABS: Percent Saturation 11 % (20-50); Platelet Count 103 10^3/uL (130-400); Total Iron Binding Capacity 454 ug/dl (261-462)
[2023-11-29 15:20] LABS: Ferritin 28.6 ng/ml (17.9-464.0)
== END ==
LOC: REG 12:40
PROVIDERS: ATTENDING PHYSICIAN Internal Medicine Hematology & Oncology; FAMILY PHYSICIAN Internal Medicine
DX: D50.9 Iron deficiency anemia, unspecified (principal)
CPT/HCPCS: 36415; 82728; 83540; 83550; 85025; 85045

== ENCOUNTER → 2023-12-03 07:56 | Outpatient (REF) | payer OTHER, SELFPAY ==
[2023-12-02 15:01] LABS: Hematocrit 34.8 % (39.0-52.0); Hemoglobin 10.4 g/dL (13.0-18.0); Mean Corp Hgb Conc. 29.9 g/dL (33.0-37.0); Mean Corpuscular Hgb 23.2 pg (27.0-31.0); Mean Corpuscular Volume 77.7 fL (80.0-94.0); Red Blood Cell Count 4.48 10^6/uL (4.70-6.10); Red Cell Dist. Width 22.1 % (11.5-14.5); White Blood Cell Count 4.8 10^3/uL (4.8-10.8)
[2023-12-02 15:24] LABS: Absolute Neutrophils -Man Diff 2.6 10^3/uL (1.4-6.5); Band Neutrophils 0 % (0-3); Eosinophils 3 % (0-6); Lymphocytes 21 % (20-51); Metamyelocytes 1 % (-); Monocytes 20 % (2-9); Platelet Count 105 10^3/uL (130-400); Segmented Neutrophils 55 % (42-75)
[2023-12-02 15:25] LABS: Normal RBC Morphology No; Platelets Checked Yes; Total Cells Counted 100
== END ==
LOC: OIDL 07:56
PROVIDERS: ATTENDING PHYSICIAN Internal Medicine Hematology & Oncology
DX: D50.9 Iron deficiency anemia, unspecified (principal); R22.41 Localized swelling, mass and lump, right lower limb; I82.401 Acute embolism and thrombosis of unspecified deep veins of right lower extremity
CPT/HCPCS: 85025

== ENCOUNTER → 2023-12-31 14:59 | Outpatient (REF) | payer OTHER, SELFPAY ==
[2023-12-31 16:55] LABS: Iron 44 ug/dl (49-181)
[2023-12-31 17:01] LABS: % Basophils 0.9 % (0-2); % Eosinophils 4.2 % (0-6); % Lymphocytes 26.6 % (20.5-51.1); % Monocytes 14.2 % (1.7-9.3); % Neutrophils 54.1 % (42.2-75.2); Absolute Eosinophils 0.1 10^3/uL (0-0.7); Absolute Lymphocytes 0.9 10^3/uL (1.2-3.4); Absolute Monocytes 0.5 10^3/uL (0.1-0.6); Absolute Neutrophils 1.8 10^3/uL (1.4-6.5); Hematocrit 38.6 % (39.0-52.0); Hemoglobin 11.6 g/dL (13.0-18.0); Mean Corp Hgb Conc. 30.1 g/dL (33.0-37.0); Mean Corpuscular Hgb 24.2 pg (27.0-31.0); Mean Corpuscular Volume 80.6 fL (80.0-94.0); Mean Platelet Volume 10.8 fL (7.4-10.4); Nucleated Red Blood Cells % 0 % (-); Platelet Count 81 10^3/uL (130-400); Red Blood Cell Count 4.79 10^6/uL (4.70-6.10); Red Cell Dist. Width 19.1 % (11.5-14.5); Reticulocyte Count 1.7 % (0.4-2.8); White Blood Cell Count 3.3 10^3/uL (4.8-10.8)
[2023-12-31 17:04] LABS: Percent Saturation 9 % (20-50); Total Iron Binding Capacity 447 ug/dl (261-462)
[2023-12-31 17:32] LABS: Ferritin 8.5 ng/ml (17.9-464.0)
== END ==
LOC: REG 14:59
PROVIDERS: ATTENDING PHYSICIAN Internal Medicine Hematology & Oncology; FAMILY PHYSICIAN Internal Medicine
DX: D50.9 Iron deficiency anemia, unspecified (principal)
CPT/HCPCS: 36415; 82728; 83540; 83550; 85025; 85045

== ENCOUNTER → 2024-02-17 13:39 | Outpatient (REF) | payer OTHER, SELFPAY ==
[2024-02-17 14:57] LABS: % Basophils 0.7 % (0-2); % Eosinophils 3.8 % (0-6); % Immature Granulocytes 0.4 % (0-0.5); % Lymphocytes 19.2 % (20.5-51.1); % Monocytes 15.8 % (1.7-9.3); % Neutrophils 60.1 % (42.2-75.2); Absolute Eosinophils 0.2 10^3/uL (0-0.7); Absolute Lymphocytes 1.1 10^3/uL (1.2-3.4); Absolute Monocytes 0.9 10^3/uL (0.1-0.6); Absolute Neutrophils 3.4 10^3/uL (1.4-6.5); Hematocrit 46.3 % (39.0-52.0); Hemoglobin 14.5 g/dL (13.0-18.0); Mean Corp Hgb Conc. 31.3 g/dL (33.0-37.0); Mean Corpuscular Hgb 27.4 pg (27.0-31.0); Mean Corpuscular Volume 87.4 fL (80.0-94.0); Nucleated Red Blood Cells % 0 % (-); Platelet Count 89 10^3/uL (130-400); Red Cell Dist. Width 23.1 % (11.5-14.5); Reticulocyte Count 1.8 % (0.4-2.8); White Blood Cell Count 5.6 10^3/uL (4.8-10.8)
[2024-02-17 15:08] LABS: ALT (SGPT) 21 U/L (0-50); AST (SGOT) 47 U/L (17-59); Alkaline Phosphatase 100 U/L (38-126); Blood Urea Nitrogen 10 mg/dl (9-20); Calcium 9.1 mg/dl (8.4-10.2); Carbon Dioxide 32 mmol/L (22-30); Chloride 102 mmol/L (98-107); Glucose 67 mg/dl (70-99); Iron 85 ug/dl (49-181); Magnesium 1.8 mg/dl (1.6-2.3); Phosphorus 1.7 mg/dl (2.5-4.5); Potassium 4.1 mmol/L (3.5-5.1); Sodium 137 mmol/L (135-145); Total Bilirubin 1.1 mg/dl (0.2-1.3); Total Protein 6.4 g/dl (6.3-8.2); eGFR > 60.00
[2024-02-17 15:18] LABS: Percent Saturation 22 % (20-50); Total Iron Binding Capacity 378 ug/dl (261-462)
[2024-02-17 15:42] LABS: Ferritin 19.8 ng/ml (17.9-464.0)
[2024-02-17 16:14] LABS: Folate 15.9 ng/ml (2.76-20); Vitamin B12 809 pg/ml (239-931)
== END ==
LOC: REG 13:39
PROVIDERS: ATTENDING PHYSICIAN Internal Medicine Hematology & Oncology; FAMILY PHYSICIAN Internal Medicine; OTHER PHYSICIAN Nurse Practitioner Primary Care; REFERRING PHYSICIAN Nurse Practitioner Family
DX: D50.9 Iron deficiency anemia, unspecified (principal); R22.41 Localized swelling, mass and lump, right lower limb; I82.401 Acute embolism and thrombosis of unspecified deep veins of right lower extremity; D50.8 Other iron deficiency anemias; K74.60 Unspecified cirrhosis of liver; D50.0 Iron deficiency anemia secondary to blood loss (chronic); Z79.899 Other long term (current) drug therapy
CPT/HCPCS: 36415; 80053; 82607; 82728; 82746; 83540; 83550; 83735; 84100; 85025; 85045

== ENCOUNTER → 2024-03-05 10:35 | Outpatient (REF) | payer OTHER, SELFPAY | LOC: RAD 10:35 | PROVIDERS: ATTENDING PHYSICIAN Internal Medicine | DX: J44.1 Chronic obstructive pulmonary disease with (acute) exacerbation (principal) | CPT/HCPCS: 71046 ==

== ENCOUNTER → 2024-03-17 11:38 | Outpatient (REF) | payer OTHER, SELFPAY ==
[2024-03-17 12:55] LABS: % Basophils 0.7 % (0-2); % Immature Granulocytes 0.3 % (0-0.5); % Lymphocytes 21.3 % (20.5-51.1); % Monocytes 15.6 % (1.7-9.3); % Neutrophils 59.1 % (42.2-75.2); Absolute Eosinophils 0.2 10^3/uL (0-0.7); Absolute Lymphocytes 1.3 10^3/uL (1.2-3.4); Absolute Monocytes 0.9 10^3/uL (0.1-0.6); Absolute Neutrophils 3.5 10^3/uL (1.4-6.5); Hematocrit 49.7 % (39.0-52.0); Mean Corp Hgb Conc. 32.2 g/dL (33.0-37.0); Mean Corpuscular Hgb 28.6 pg (27.0-31.0); Mean Corpuscular Volume 88.8 fL (80.0-94.0); Nucleated Red Blood Cells % 0 % (-); Platelet Count 86 10^3/uL (130-400); Red Cell Dist. Width 17.8 % (11.5-14.5)
[2024-03-17 13:19] LABS: Iron 92 ug/dl (49-181)
[2024-03-17 13:28] LABS: Percent Saturation 27 % (20-50); Total Iron Binding Capacity 329 ug/dl (261-462)
[2024-03-17 13:54] LABS: Ferritin 53.5 ng/ml (17.9-464.0)
== END ==
LOC: REG 11:38
PROVIDERS: ATTENDING PHYSICIAN Internal Medicine Hematology & Oncology; FAMILY PHYSICIAN Internal Medicine
DX: D50.9 Iron deficiency anemia, unspecified (principal)
CPT/HCPCS: 36415; 82728; 83540; 83550; 85025

== ENCOUNTER → 2024-04-22 09:05 | Outpatient (REF) | payer OTHER, SELFPAY ==
[2024-04-22 09:57] LABS: % Basophils 0.6 % (0-2); % Eosinophils 4.3 % (0-6); % Immature Granulocytes 0.6 % (0-0.5); % Lymphocytes 27.5 % (20.5-51.1); % Monocytes 14.2 % (1.7-9.3); % Neutrophils 52.8 % (42.2-75.2); Absolute Eosinophils 0.2 10^3/uL (0-0.7); Absolute Monocytes 0.5 10^3/uL (0.1-0.6); Absolute Neutrophils 1.8 10^3/uL (1.4-6.5); Hematocrit 43.4 % (39.0-52.0); Hemoglobin 13.7 g/dL (13.0-18.0); Mean Corp Hgb Conc. 31.6 g/dL (33.0-37.0); Mean Corpuscular Hgb 29.1 pg (27.0-31.0); Mean Corpuscular Volume 92.1 fL (80.0-94.0); Mean Platelet Volume 10.9 fL (7.4-10.4); Nucleated Red Blood Cells % 0 % (-); Platelet Count 76 10^3/uL (130-400); Red Blood Cell Count 4.71 10^6/uL (4.70-6.10); Red Cell Dist. Width 14.8 % (11.5-14.5); Reticulocyte Count 2.1 % (0.4-2.8); White Blood Cell Count 3.5 10^3/uL (4.8-10.8)
[2024-04-22 10:27] LABS: ALT (SGPT) 43 U/L (0-50); AST (SGOT) 43 U/L (17-59); Alkaline Phosphatase 110 U/L (38-126); Blood Urea Nitrogen 8 mg/dl (9-20); Calcium 9.4 mg/dl (8.4-10.2); Carbon Dioxide 33 mmol/L (22-30); Chloride 100 mmol/L (98-107); Glucose 101 mg/dl (70-99); HDL Cholesterol 65 mg/dl; Iron 52 ug/dl (49-181); LDL Cholesterol, Calculated 55 mg/dl; Potassium 4.6 mmol/L (3.5-5.1); Sodium 140 mmol/L (135-145); Total Bilirubin 1.1 mg/dl (0.2-1.3); Total Cholesterol 135 mg/dl (50-199); Total Protein 6.3 g/dl (6.3-8.2); Triglyceride 78 mg/dl (10-149); Very Low Density Lipoprotein 15 mg/dl (0-30); eGFR > 60.00
[2024-04-22 10:36] LABS: Percent Saturation 11 % (20-50); Total Iron Binding Capacity 442 ug/dl (261-462)
[2024-04-22 10:50] LABS: PSA, Total - Screen 0.48 ng/ml (0.0-4.0); TSH 2.11 uIU/ml (0.47-4.68)
[2024-04-22 10:54] LABS: Ferritin 8.8 ng/ml (17.9-464.0)
== END ==
LOC: REG 09:05
PROVIDERS: ATTENDING PHYSICIAN Internal Medicine Hematology & Oncology; PRIMARYCARE PHYSICIAN Internal Medicine
DX: Z12.5 Encounter for screening for malignant neoplasm of prostate (principal); E78.2 Mixed hyperlipidemia; I48.0 Paroxysmal atrial fibrillation; D50.9 Iron deficiency anemia, unspecified
CPT/HCPCS: 36415; 80053; 80061; 82728; 83540; 83550; 84443; 85025; 85045; G0103

== ENCOUNTER → 2024-06-18 08:16 | Outpatient (REF) | payer OTHER, SELFPAY ==
[2024-06-18 10:05] LABS: % Basophils 0.6 % (0-2); % Eosinophils 3.8 % (0-6); % Lymphocytes 28.4 % (20.5-51.1); % Monocytes 16.7 % (1.7-9.3); % Neutrophils 50.5 % (42.2-75.2); Absolute Eosinophils 0.1 10^3/uL (0-0.7); Absolute Monocytes 0.6 10^3/uL (0.1-0.6); Absolute Neutrophils 1.7 10^3/uL (1.4-6.5); Hematocrit 42.5 % (39.0-52.0); Hemoglobin 13.5 g/dL (13.0-18.0); Mean Corp Hgb Conc. 31.8 g/dL (33.0-37.0); Mean Corpuscular Hgb 27.2 pg (27.0-31.0); Mean Corpuscular Volume 85.5 fL (80.0-94.0); Mean Platelet Volume 11.8 fL (7.4-10.4); Nucleated Red Blood Cells % 0 % (-); Platelet Count 73 10^3/uL (130-400); Red Blood Cell Count 4.97 10^6/uL (4.70-6.10); Red Cell Dist. Width 13.6 % (11.5-14.5); White Blood Cell Count 3.4 10^3/uL (4.8-10.8)
[2024-06-18 10:17] LABS: Iron 46 ug/dl (49-181)
[2024-06-18 10:29] LABS: Percent Saturation 9 % (20-50); Total Iron Binding Capacity 482 ug/dl (261-462)
[2024-06-18 11:28] LABS: Ferritin 8.1 ng/ml (17.9-464.0)
== END ==
LOC: RAD 08:16
PROVIDERS: ATTENDING PHYSICIAN Internal Medicine; OTHER PHYSICIAN Internal Medicine Transplant Hepatology; PRIMARYCARE PHYSICIAN Internal Medicine; REFERRING PHYSICIAN Internal Medicine Hematology & Oncology
DX: K74.60 Unspecified cirrhosis of liver (principal); D50.9 Iron deficiency anemia, unspecified; R22.41 Localized swelling, mass and lump, right lower limb; I82.401 Acute embolism and thrombosis of unspecified deep veins of right lower extremity
CPT/HCPCS: 36415; 76700; 82728; 83540; 83550; 85025

== ENCOUNTER → 2024-08-18 12:21 | Outpatient (REF) | payer OTHER, SELFPAY ==
[2024-08-18 14:04] LABS: Hematocrit 41.5 % (39.0-52.0); Hemoglobin 12.9 g/dL (13.0-18.0); Mean Corp Hgb Conc. 31.1 g/dL (33.0-37.0); Mean Corpuscular Volume 80.7 fL (80.0-94.0); Nucleated Red Blood Cells % 0 % (-); Platelet Count 73 10^3/uL (130-400); Red Cell Dist. Width 16.1 % (11.5-14.5)
[2024-08-18 14:34] LABS: ALT (SGPT) 35 U/L (0-50); AST (SGOT) 38 U/L (17-59); Albumin 3.9 g/dl (3.5-5.0); Alkaline Phosphatase 78 U/L (38-126); Blood Urea Nitrogen 10 mg/dl (9-20); Calcium 9.5 mg/dl (8.4-10.2); Carbon Dioxide 30 mmol/L (22-30); Chloride 106 mmol/L (98-107); Glucose 97 mg/dl (70-99); Iron 66 ug/dl (49-181); Potassium 4.1 mmol/L (3.5-5.1); Sodium 140 mmol/L (135-145); Total Protein 6.5 g/dl (6.3-8.2); eGFR > 60.00
[2024-08-18 14:43] LABS: Total Iron Binding Capacity 509 ug/dl (261-462)
[2024-08-18 15:01] LABS: Ferritin 8.0 ng/ml (17.9-464.0)
[2024-08-18 17:07] LABS: AFP Male/Tumor Marker 5.73 ng/ml
== END ==
LOC: REG 12:21
PROVIDERS: ATTENDING PHYSICIAN Nurse Practitioner; FAMILY PHYSICIAN Internal Medicine; OTHER PHYSICIAN Internal Medicine Cardiovascular Disease; OTHER PHYSICIAN Internal Medicine Critical Care Medicine; REFERRING PHYSICIAN Internal Medicine Hematology & Oncology
DX: D50.9 Iron deficiency anemia, unspecified (principal); R22.41 Localized swelling, mass and lump, right lower limb; I82.401 Acute embolism and thrombosis of unspecified deep veins of right lower extremity; K74.60 Unspecified cirrhosis of liver
CPT/HCPCS: 36415; 80053; 82105; 82248; 82728; 83540; 83550; 85025

== ENCOUNTER 2024-08-27 20:57 | Inpatient (IN) | payer OTHER, SELFPAY ==
[2024-08-27] VITALS (43 sets, daily range): BP systolic 58–153; BP diastolic 33–86; BMI 32.6
[2024-08-27 18:47] LABS: Glucose - Point of Care 117 mg/dl (70-99)
--- NOTE | 2024-08-27 18:50 | ED.GENMED ---
History of Present Illness
General
Chief Complaint: CODE
Source: ambulance crew
Time Seen by Provider: 08/27/24 18:46
History of Present Illness
History of Present Illness:
This patient is a 63-year-old male who reportedly developed cardiac arrest while at home. A neighbor called 911 and upon their arrival patient was noted to be cyanotic and hunched over his table with agonal respirations. CPR was initiated.
Patient never had a shockable rhythm. He was given epinephrine x 2 with return of spontaneous circulation. Patient was also given to 'push dose' doses of epinephrine due to sustained hypotension. He was intubated, and is making some spontaneous
movements.
Past History
Past History
ED Past Medical History: COPD (Emphysema), GERD, HTN, Hypercholesterolemia and Other (Umbilical hernia with repair, diverticulosis, A-fib, Parkinson's, cirrhosis, hypertension, EVE with CPAP)
ED Past Surgical History: Other (Previous umbilical hernia repair)
Patient has exhibited threatening behavior?: No
Social History
Tobacco: Former smoker
Alcohol: Occasional (Rum and coke 1-2 but states more)
Drug: None
Personal:
Living: with family
Family History
Family History: Negative Diabetes, Hypertension or CAD
Phy Exam
Physical Exam
Physical Exam:
CODE EXAM:
GENERAL EXAM: unresponsive, not cyanotic
EYES: Pupils equal and round
ENT: Patient intubated
NECK: No venous distention
RESPIRATORY: Equal breath sounds, diffuse wheezing noted, making some spont respirations
CARDIAC: irreg irreg
ABDOMEN: Soft distended no masses
GUAIAC: Not done
MUSCULOSKELETAL: Unable to evaluate strength
EXTREMITIES: No edema or contractures
SKIN: No rash
PSYCH: Mood, affect unable to evaluate
Course
Orders/Labs/Results
Orders:
Orders
08/27/24 Breakfast
NPO
Allow oral meds: No
Allow clear liquids: No
NPO with Ice Chips: No
Comment: may receive medications via tube if ordered
NPO
Allow oral meds: No
Allow clear liquids: No
NPO with Ice Chips: No
Comment: may receive medications via tube if ordered
08/27/24 18:44
Electrocardiogram (*1) Urgent
Reason for Study: Other
Other Reason for Exam: Respiratory Distress
Cardiac Monitoring- Treatment ONCE
EKG- Treatment ONCE
IV Insert/Care/Rem.- Treatment PRN
Portable Chest Xray [CR Chest Portable - 1 View] Stat
Comment:
Reason For Exam: code
Reason Study Needs to be Portable: Unable to Transport
O2 Therapy [RESP] Urgent
Titrate/Wean O2 to maintain O2 sat greater than (%): 93
Special Instructions: TO MAINTAIN CONTINUOUS O2 SATS >/= 93%
Pulse Ox/cont/shift [RESP] Urgent
Quantity: 1
Special Instructions: continuous pulse ox
08/27/24 18:49
Complete Blood Count/With Diff Urgent
Comprehensive Metabolic Panel Urgent
Glycohemoglobin (HgbA1c) Urgent
Magnesium Urgent
Comment: ADD ON
NT-proBNP Urgent
Phosphorus Urgent
Comment: ADD ON
Triglycerides Urgent
Comment: ADD ON
Troponin I Urgent
08/27/24 18:59
Lactic Acid Urgent
08/27/24 19:07
Albuterol Sulfate [Ventolin Nebules] 15 mg INH R NOW STA
Dexamethasone Sod Phosphate [Decadron] 10 mg IV NOW STA
Propofol 1,000,000 Mcg/100 ml [Diprivan] 1,000,000 mcg in 100 ml IV NOW
Indication:: Light Sedation
Begin Infusion:: Now
Goal:: RASS 0 to -2
Maximum dose in mcg/kg/min:: 50
Initial dose based on RASS:: Yes
If RASS is:: +1 or pt hemodynamically unstable (SBP < 90mmHg), initiate at 10 mcg/kg/min
If RASS is:: +2, initiate at 20 mcg/kg/min
If RASS is:: greater than or equal to +3, initiate at 30 mcg/kg/min
Titration Instructions:: Titrate by 5-10 mcg/kg/min every 5 minutes until RASS 0 to -2 achieved.
Taper Instructions:: If RASS is at or below goal for 4 consecutive hours decrease infusion by
Taper Instructions:: 5-10 mcg/kg/min every 2 hours to off.
Over-sedation Instructions:: If CPOT 0-2 (at goal) AND RASS -3 to -5 (below goal) decrease sedative by
Over-sedation Instructions:: 50% first. If pain score remains at goal and RASS remains below goal in
Over-sedation Instructions:: 1 hour, decrease opioid infusion by 50%.
Notify provider:: immediately if patient exhibits signs/symptoms of propofol-related
Notify provider:: infusion syndrome.
Additional Instructions:: Patient MUST be mechanically ventilated and MUST receive analgesia.
08/27/24 19:08
Blood Culture Q30M
[facility] Source: Blood/Venous
Specimen Description:
Blood Culture Q30M
[facility] Source: Blood/Venous
Specimen Description:
08/27/24 19:09
Propofol 1,000,000 Mcg/100 ml [Diprivan] 1,000,000 mcg in 100 ml .ROUTE .STK-MED
08/27/24 19:17
PHENYLephrine 50 MG/250 ML NSS [Luis-Synephrine] 50 mg in 250 ml IV NOW
Initial dose in mcg/min, then titrate:: 20
Titrate to keep:: MAP > 65 mmHg
Titrate by mcg/min:: 20 mcg/min
Frequency of titrations (minutes):: 5
Maximum dose in ICU in mcg/min:: 200
Maximum dose in IMU in mcg/min:: 80
Begin to taper infusion when:: Remained at goal for 4hrs
Taper by mcg/min:: 20 mcg/min
Frequency of taper (minutes) if patient maintains goal:: 30
Taper to off?: Yes
If infusion off & no longer maintaining goal:: Contact Provider
08/27/24 19:22
CT Head W/o Iv Contrast Stat
Comment:
Reason For Exam: change in mental status
Code Status As Directed
Resuscitation Status: Full Code
08/27/24 20:00
0.9% Sodium Chloride 500 ml [Nss] 500 ml IV Q30M
08/27/24 20:37
Admit/Transfer Patient As Directed
Co-Sign Provider:
Level of Care: Inpatient admission
Assign to:: ICU
Physician / Group: Anju
Diagnosis: Cardiac Arrest, COPD with Acute Exacerbation
Reason for Hospitalization: Cardiac Arrest, COPD with Acute Exacerbation
Expected length of stay greater than two midnights?: Yes
ELOS- Estimated Length of Stay in days: 5
I certify the patient meets the requirements for IP care: Yes
PRN Pain Medication Management As Directed
May give lesser potent ordered pain med per pt: Yes
preference::
Protocol:: Medication orders for pain may be administered in a
manner that supports deferring to patient preference
when the pt is:
- Requesting an ordered lesser potent pain medication.
Least to most potent pain medications are defined
as: acetaminophen < NSAID < tramadol < opioids
(morphine, oxycodone, hydromorphone).
- Requesting a lesser dose of the same medication IF
ORDERED.
- Requesting a less intrusive route of administration
if both routes are prescribed by the provider (PO <
IV).
08/27/24 20:53
ABG [Arterial Blood Gas] Urgent
%Oxygen/Room Air: 100
08/27/24 21:52
Acetaminophen [Tylenol Oral Solution] 650 mg TUBE NOW STA
Acetaminophen [Tylenol/Feverall] 650 mg RECTAL Q6HPRN PRN
Albuterol Nebs [Ventolin Nebules] 2.5 mg INH R Q4HPRN PRN
Buspirone [Buspar] 30 mg TUBE NOW STA
Dextrose 5%/0.9%Sodchl 1000 ml [D5/0.9% Sodium Chloride] 1,000 ml IV 100 mls/hr
FentaNYL 1,000 MCG/100 ML [Sublimaze] 1,000 mcg in 100 ml IV PER PROTOCOL
Indication:: TTM Shivering Prot Step 2
Begin Infusion:: Other
Begin infusion when:: BSAS >/= 1 15 minutes after indicated step 1 bolus
Goal:: BSAS = 0, pain score </= 1, CPOT 0-2
Maximum dose in mcg/hr:: 300
Initial Dose in mcg/hr:: 25
Initial dose other:: initiate at dose indicated above OR titrate dose by 25 mcg/hr
Titration Instructions:: Titrate every 30 minutes if patient exhibits shivering (BSAS >/= 1) or
Titration Instructions:: signs of pain/discomfort (pain score >/= 2, CPOT >/= 3).
Titration Instructions:: Administer bolus dose and titrate by 25 mcg/hr.
Titration Instructions:: if BSAS >/= 1 30 minutes after beginning infusion with boluses,
Titration Instructions:: Proceed to Step 3. Continue to up titrate fentanyl as needed.
Taper Instructions:: If shivering and pain scores are at goal for 4 consecutive hours (BSAS = 0,
Taper Instructions:: pain score </= 1, CPOT 0-2): Decrease dose by 50 mcg/hr every 2 hours.
Taper Instructions:: When dose </= 50 mcg/hr may turn infusion off and consider as needed
Taper Instructions:: intermittent bolus doses only.
Notify provider:: immediately if pt exhibits: chest wall rigidity, hemodynamic instability,
Notify provider:: agitation/pain despite maximum dosing, pain when RASS below goal.
Additional Instructions:: if receiving sedation continue to up titrate analgesia first when available
Additional Instructions:: Patient MUST be mechanically ventilated.
Fentanyl Citrate/Pf [Sublimaze] 50 mcg IV [id number] PRN
NORepinephrine 4 MG/250 ML [Levophed] 4 mg in 250 ml IV PER PROTOCOL
Initial dose in mcg/min, then titrate:: 4
Titrate to keep:: MAP > 65 mmHg
Titrate by mcg/min:: 1-2 mcg/min
Frequency of titrations (minutes):: 5
Maximum dose in ICU in mcg/min:: 30
Maximum dose in IMU in mcg/min:: 8
Maximum dose in IVU in mcg/min:: 4
Begin to taper infusion when:: Remained at goal for 4hrs
Taper by mcg/min:: 1-2 mcg/min
Frequency of taper (minutes) if patient maintains goal:: 30
Taper to off?: Yes
If infusion off & no longer maintaining goal:: Contact Provider
PHENYLephrine 50 MG/250 ML NSS [Luis-Synephrine] 50 mg in 250 ml IV PER PROTOCOL
Currently infusing. Continue current dose and titrate:: Yes
Titrate to keep:: MAP > 65 mmHg
Titrate by mcg/min:: 20 mcg/min
Frequency of titrations (minutes):: 5
Maximum dose in ICU in mcg/min:: 200
Maximum dose in IMU in mcg/min:: 80
Begin to taper infusion when:: Remained at goal for 4hrs
Taper by mcg/min:: 20 mcg/min
Frequency of taper (minutes) if patient maintains goal:: 30
Taper to off?: Yes
If infusion off & no longer maintaining goal:: Contact Provider
Propofol 1,000,000 Mcg/100 ml [Diprivan] 1,000,000 mcg in 100 ml IV PER PROTOCOL
Indication:: TTM Shivering Prot Step 3
Begin Infusion:: Other
Begin infusion when:: BSAS >/= 1 30 minutes after beginning Fentanyl infusion with boluses
Goal:: BSAS 0 or RASS 0 to -2
Maximum dose in mcg/kg/min:: 50
Initial Dose in mcg/kg/min:: 10
Initial dose other:: Initiate at dose indicated above OR titrate dose by 5-10 mcg/kg/min
Titration Instructions:: Titrate by 5-10 mcg/kg/min every 5 minutes until BSAS 0 or RASS 0 to -2.
Titration Instructions:: when available, up titrate analgesia first.
Titration Instructions:: If BSAS >/=1 despite Propofol at maximum tolerated dose, proceed to Step 4.
Taper Instructions:: If BSAS or RASS is at or below goal for 4 consecutive hours decrease
Taper Instructions:: dose by 5-10 mcg/kg/min every 2 hours.
Over-sedation Instructions:: If CPOT 0-2 (at goal) AND RASS -3 to -5 (below goal) decrease sedative by
Over-sedation Instructions:: 50% first. If pain score remains at goal and RASS remains below goal in
Over-sedation Instructions:: 1 hour, decrease opioid infusion by 50%.
Notify provider:: immediately if patient exhibits signs/symptoms of propofol-related
Notify provider:: infusion syndrome.
Additional Instructions:: Patient MUST be mechanically ventilated.
Vecuronium [place] [Norcuron] 10 mg IV Q1HPRN PRN
Vecuronium [place] [Norcuron] 60 mg 0.9% Sodium Chloride 250 ml [Nss] 190 ml IV PER PROTOCOL
08/27/24 21:52
CARDIOLOGY CONSULT Routine
Consulting Provider: Demian Goldman
Was physician already notified: Yes
Reason for consult: Cardiac Arrest, COPD with Acute Exacerbation
Case Management Consult Once
Case Management Consult: Discharge Planning
Senior Actuarial Analyst Consult Urgent
Consulting Provider: Kai Mata
Was physician already notified: Yes
Reason for consult: Cardiac Arrest, COPD with Acute Exacerbation
NEUROLOGY CONSULT Urgent
Consulting Provider: Elan Goldberg
Was physician already notified: Yes
Reason for consult: Cardiac Arrest, COPD with Acute Exacerbation
PTT Urgent
Prealbumin (Transthyretin) Routine
Prothrombin Time Urgent
TSH Reflex To Free T4 Routine
Activity As Directed
Activity Level: Bedrest
Comment: obtain Sport bed, Maintain HOB 30 degrees
Arterial Line As Directed
Bedside Glucose Monitoring As Directed
Frequency: Other frequency
Other frequency: Q1 hour x 4 hours
Additional Instructions:: If glucose is greater than or equal to 180 mg/dL: Contact provider to initiate
Critical Care Glycemic Protocol Target Glucose Range 140-180 mg/dL.
Catheter- Indwelling As Directed
Reason for insertion: I&O's Critical Care
Comment: temperature sensing Saab catheter with hourly urine output
Central Line As Directed
Comment: do not use central line for cold fluids
EKG with chest pain [ECG as needed] As Directed
ECG as needed for:: Chest Pain
Gastric Lavage As Directed
Route: Nasogastric Tube/ Orogastric Tube
Irrigant: Purified/Distilled Water
Amount in mls: 250-500ml iced water
Remove irrigant after __min: 10
Gastric lavage directions: - Chilled gastric lavage: instill 250-500mL iced water, clamp for 10-15 minutes
then connect gastric tube to suction.
- Repeat for total volume of 30mL/kg. Maximum 3 liters
- Discontinue once TTM device is initiated
Gastrointestinal Tubes As Directed
Type: Worth sump
To suction?: Yes
Type of suction: Low intermittent
Irrigate tube?: Yes
Irrigant: Tap Water
Frequency: Q4H
Amount in mls: 30
Irrigation Directions: Irrigate Q4H and PRN
Comment: insert nasogastric or orogastric tube
Head of Bed-Restrictions As Directed
Elevation Level: 30 degress
Frequency: At all times
INT (Intravenous Needle Therapy) As Directed
Comment: peripheral IV required, consider 2 peripheral IV lines
Intake/ Output As Directed
Frequency: q1h
Comment: hourly urine output
Neurological Checks As Directed
Frequency: q4h
Additional Instructions:: Obtain baseline, then every 4 hours
Notify MD As Directed
Notify physician if: BSAS >=1 despite maximum tolerated dose of propofol and proceeding to step 4 of shivering
protocol to change pain and sedation orders to deep sedation protocol and discontinue
current Fentanyl and Propofol orders.
Notify MD As Directed
Notify physician if: serum magnesium less than 3.0 mg/dL
Nursing to Place Non Medication Order As Directed
Physician Order: ABG every 12 hours x 6
Above order entered?: Yes
Nursing to Place Non Medication Order As Directed
Physician Order: order each lab below for Urgent every 6 hours x 6
CBC with Diff
Complete Metabolic Panel
Magnesium
Phosphorus
CK
CKMB
Troponin
Lactate
Above order entered?: Yes
Pneumatic Compression Sleeves As Directed
Type: Knee high
Comment: bilateral
Pre-induction Neuromuscular Assessment As Directed
Pre-induction Neuromuscular Assessments: -Confirm [place] Agitation Sedation Scale (RASS) of -3 to -5
-Document:
--GSC ([place] Coma Scale)
--Corneal reflex
--Train of four
Precautions As Directed
Type of Precautions: Aspiration
Shivering Protocol for Targeted Temperature Management As Directed
Instructions:: Use stepwise approach for management of shivering.
Bedside shivering assessment score (BSAS) frequency:: Q 30 minutes until target temperature achieved then Q 1
hour and PRN
Step 1:: Fentanyl or Meperidine intermittent bolus doses
If BSAS >=/ 1 15 minutes after bolus(es), proceed to Step 2.
Step 2:: Begin/increase Fentanyl infusion + continue Fentanyl boluses
If BSAS >/= 1 after 2 analgesic bolus doses and Fentanyl infusion on for 30 minutes,
proceed to Step 3.
Step 3:: Begin Propofol infusion + continue Fentanyl infusion + Fentanyl boluses
If BSAS >=/1 despite Propofol at maximum tolerated dose, proceed to Step 4.
Step 4:: NMBA intermittent bolus doses.
Contact provider to update pain and sedation orders/obtain orders for DEEP SEDATION.
If BSAS >/= 1 after 2 NMBA bolus doses within 3 hours, proceed to Step 5.
Step 5:: Begin NMBA infusion + continue NMBA boluses + deep sedation.
Continuous IV analgesia and sedation must be ordered.
Additional Instructions:: When beginning Step 4 (NMBA bolus doses), obtain orders for DEEP SEDATION and
discontinue Fentanyl and Propofol orders from steps 1, 2, and 3.
Skin Care As Directed
Type of Skin Care: skin checks every 2 hours
Specialty Mattress As Directed
Type of Mattress: Other
Other type of speciality mattress: Sport Bed
Targeted Temperature Management Cooling Phase As Directed
Goal Temp:: 96.8 F (36 C)
Directions: - Wrap patient in surface cooling pads and attach to temperature management device.
- Maintain patient at goal temperature for 24 hours.
- Once device is initiated, discontinue use of cooled fluids and gastric lavage unless directed to
continue.
Targeted Temperature Management Normothermia Phase As Directed
Active Normothermia Instructions:: Maintain surface cooling device and set temperature to 97.4 F for 48 hours
post rewarming.
Targeted Temperature Management Rewarming Phase As Directed
Rewarming Directions:: -Increase temp by 0.33 degrees F every hour per automatic rewarming mode until temp
reaches 97.4 degrees F
-If using continuous NMBA, turn off when temperature reaches 97.0 degrees F
-Once normothermia target temperature is achieved, wean sedation to maintain a RASS
level of 0 to -2, refer to Pain, Agitation, Sedation guidelines
-Discontinue previous serial labs then
-CMP, CBC, Mag, Phos, and Lactate every 4 hours x 6
-Stop electrolyte replacement 6 hours prior to rewarming (unless electrolyte levels
critical)
Vital Signs As Directed
Frequency: Other
Additional Instructions:: q30min x4 then q1h including core temp via TTM device
Weight As Directed
Frequency: Daily
DX Deep Vein Thrombosis Video Routine
08/27/24 22:00
0.9% Sodium Chloride 500 ml [Nss] 500 ml IV Q30M
Piperacillin/Tazo 3.375 Gram [Zosyn] 3.375 gram in 50 ml IV Q6H
08/28/24
Echo 2D MMode Color/Doppler Stat
Reason for Study: cardiac arrest
08/28/24 02:00
Dexamethasone Sod Phosphate [Decadron] 6 mg IV Q6H
08/28/24 04:00
Acetaminophen [Tylenol Oral Solution] 650 mg TUBE Q6H
08/28/24 05:48
Cardiovascular Evaluation IN AM
Magnesium IN AM
PTT IN AM
Prealbumin (Transthyretin) IN AM
Prothrombin Time IN AM
08/28/24 06:00
CR Chest Portable - 1 View DAILY
Comment:
Reason For Exam: cardiac arrest
Reason Study Needs to be Portable: Patient Unstable
08/28/24 08:00
Buspirone [Buspar] 30 mg TUBE Q8
Carboxymethylcellulose [Refresh Celluvisc Gel] 1 drops BOTH EYES BID
Ipratropium/Albuterol Sulfate [Duoneb] 3 ml INH R QID
Pantoprazole [Protonix IV] 40 mg IV DAILY
08/28/24 08:58
Lactate Level [Lactic Acid] Q6H
Troponin I Q6H
08/28/24 18:00
Enoxaparin Sodium [Lovenox] 40 mg SC QPM
08/29/24 06:00
NT-proBNP IN AM
PTT IN AM
Prealbumin (Transthyretin) IN AM
Prothrombin Time IN AM
CR Chest Portable - 1 View DAILY
Comment:
Reason For Exam: cardiac arrest
Reason Study Needs to be Portable: Patient Unstable
08/30/24 06:00
NT-proBNP IN AM
PTT IN AM
Prealbumin (Transthyretin) IN AM
Prothrombin Time IN AM
Triglycerides Q3D
Comment: every 72 hours while patient is on propofol
CR Chest Portable - 1 View DAILY
Comment:
Reason For Exam: cardiac arrest
Reason Study Needs to be Portable: Patient Unstable
09/02/24 06:00
Triglycerides Q3D
Comment: every 72 hours while patient is on propofol
09/05/24 06:00
Triglycerides Q3D
Comment: every 72 hours while patient is on propofol
Abnormal Lab Results
08/27/24 08/27/24 08/27/24
18:46 18:49 18:59
WBC 21.6 H 10^3/uL
(4.8-10.8)
MCH 25.2 L pg
(27.0-31.0)
MCHC 30.8 L g/dL
(33.0-37.0)
RDW 17.2 H %
(11.5-14.5)
Plt Count 126 L 10^3/uL
(130-400)
MPV 11.7 H fL
(7.4-10.4)
Abs Immat Gran (auto) 0.6 H 10^3/uL
(0-0.05)
Absolute Neuts (auto) 14.3 H 10^3/uL
(1.4-6.5)
Absolute Lymphs (auto) 4.3 H 10^3/uL
(1.2-3.4)
Absolute Monos (auto) 2.0 H 10^3/uL
(0.1-0.6)
Immature Gran % 2.9 H %
(0-0.5)
Lymphocytes % 20.1 L %
(20.5-51.1)
Monocytes % 9.4 H %
(1.7-9.3)
pH
pCO2
pO2
ABG O2 Sat (Measured)
Carbon Dioxide 18 L mmol/L
(22-30)
Glucose 125 H mg/dl
(70-99)
Hemoglobin A1c 5.8 H %
(4.0-5.6)
Lactic Acid 8.5 H* mmol/L
(0.7-2.0)
Phosphorus 7.6 H mg/dl
(2.5-4.5)
Total Bilirubin 2.3 H mg/dl
(0.2-1.3)
AST 75 H U/L
(17-59)
POC Glucose 117 H mg/dl
(70-99)
08/27/24
20:53
WBC
MCH
MCHC
RDW
Plt Count
MPV
Abs Immat Gran (auto)
Absolute Neuts (auto)
Absolute Lymphs (auto)
Absolute Monos (auto)
Immature Gran %
Lymphocytes %
Monocytes %
pH 7.22 L
(7.35-7.45)
pCO2 61 H mmHg
(35-48)
pO2 277 H mmHg
(83-108)
ABG O2 Sat (Measured) 100.0 H %
(94-98)
Carbon Dioxide
Glucose
Hemoglobin A1c
Lactic Acid
Phosphorus
Total Bilirubin
AST
POC Glucose
08/27/24 18:49
08/27/24 18:49
Vital Signs
Initial and Last Documented VS:
Initial Vital Signs
Pulse Resp BP Pulse Ox
127 22 147/86 95
08/27/24 18:48 08/27/24 18:48 08/27/24 18:48 08/27/24 18:48
Last Documented Vital Signs
Temp Pulse Resp BP Pulse Ox
96.9 F L 49 20 118/66 100
08/28/24 08:00 08/28/24 08:00 08/28/24 08:00 08/28/24 07:45 08/28/24 08:00
Procedures
Central Line
Left Femoral:
Indication for procedure:: Cooling protocol
Procedure completed by: Dr. Saab
Consent form signed: No
If no, reason: Emergency procedure
Central line lumen: triple
Number of attempts: 1
Central line complications: none
Sterile dressing applied?: Yes
*Pulse Oximetry
SaO2: 95
Oxygen Mode of Delivery: Ventilator
Patient hypoxic: no
*Critical Care Note
Total Time (30-74mins, 75-104mins- exclusive of procedures): 42
Update Note
Update Note:
Patient presents to the Emergency Department with __reported cardiac arrest
Number and Complexity of Problems Addressed at the Encounter
� Chronic conditions affecting care:
� Acute Exacerbation and/or Progression of Chronic Illness:
� Differential Diagnosis includes: But not limited to ACS, PE, respiratory arrest/failure, sepsis, etc. etc.
Amount and/or Complexity of Data to be Reviewed and Analyzed
� I performed an independent evaluation of and my interpretation is:
EKG: Read by me and compared to prior, patient has a history of a right bundle branch block which is noted on this ECG, rhythm appears to be atrial fibrillation.
CT:
Xrays: Read by me, of note tube was advanced to 25 after x-ray, no cardiomegaly, no effusions, hyperinflation noted, no specific infiltrate
Laboratory Studies:
Other:
� Review of other/old records reveals:
� Clinical information was obtained by an independent historian: Son is now here he describes patient as having a strong respiratory history, is typically quite inactive. He has been more active than usual recently because his
is currently in the hospital. He was complaining of shortness of breath as recently as yesterday and was going to call the doctor. He did not speak to him today.
� Prescriptions/Medications Considered but not given:
� Further testing considered but not performed:
Risk of Complications and/or Morbidity or Mortality of Patient Management
� Social determinants of health affecting care:
� Discussion with other providers (PCP, Hospitalists, Consultants, etc):
� Escalation of care including admission/observation vs risk of discharge considered: ECG is challenging to interpret, message sent to Dr. Chris from cardiology along with accompanying present and prior ECG for consultation. Overall
I am more suspicious that patient developed respiratory arrest leading to his cardiac arrest and that this is less likely to be an acute cardiac event. Labs pending. Patient started on nebulizer, steroids, sedation.
7:[address] Lam from cardiology agrees no STEMI identified. Case discussed with Dr. Lance for admission via [place] text. At this time, patient requiring a low-dose neosynephrine drip for hypotension associated with his A-fib at a rate in the 120s
this is thought to be the best agent. Also on a propofol drip for sedation. Will update son.
ED Attending Note
-
Portions of this chart may have been created with voice recognition software.� Occasional wrong word or��sound alike� substitutions may have occurred due to the inherent limitations of voice recognition software.
Discharge Plan
Departure
Patient Disposition: Admit
Date of Disposition: 08/27/24
Time of Disposition: 19:22
Admit to: ICU
Admit to doctor: anju
Presentation/result/management discussed w/ accepting MD/DO: Hospitalist
Discharge Problem:
Cardiac arrest
Interventions
Interventions:
*Nursing Disposition Last Done: 08/27/24 21:40
ED- Cardiac Assessment Last Done: 08/27/24 19:58
ED- Pulmonary Assessment Last Done: 08/27/24 19:02
Discharge Date and Time
Discharge Date/Time: 08/27/24 22:13
[2024-08-27 18:54] LABS: Hematocrit 48.7 % (39.0-52.0); Hemoglobin 15.0 g/dL (13.0-18.0); Mean Corp Hgb Conc. 30.8 g/dL (33.0-37.0); Mean Corpuscular Volume 81.7 fL (80.0-94.0); Nucleated Red Blood Cells % 0.2 % (-); Platelet Count 126 10^3/uL (130-400); Red Cell Dist. Width 17.2 % (11.5-14.5)
[2024-08-27] MEDS: DIPRIVAN 100 IV (19:12)
[2024-08-27] MEDS: DECADRON 10 MG IV (19:16)
[2024-08-27 19:19] LABS: AST (SGOT) 75 U/L (17-59); Albumin 4.5 g/dl (3.5-5.0); Alkaline Phosphatase 112 U/L (38-126); Blood Urea Nitrogen 11 mg/dl (9-20); Calcium 9.1 mg/dl (8.4-10.2); Carbon Dioxide 18 mmol/L (22-30); Chloride 104 mmol/L (98-107); Estimated Creatinine Clearance 112 ml/min; Glucose 125 mg/dl (70-99); Potassium 5.1 mmol/L (3.5-5.1); Sodium 137 mmol/L (135-145); Total Protein 7.2 g/dl (6.3-8.2); eGFR > 60.00
[2024-08-27 19:30] LABS: ALT (SGPT) 49 U/L (0-50)
[2024-08-27] MEDS: NEO-SYNEPHRINE 250 IV (19:35)
[2024-08-27] MEDS: NSS 500 IV (19:35)
[2024-08-27 19:36] LABS: Troponin I 0.019 ng/ml
[2024-08-27] MEDS: VENTOLIN NEBULES 15 MG INH (20:05)
--- NOTE | 2024-08-27 20:52 | CONS.URO ---
Consultation
-
Date/Time Consultation Performed: 08/27/242044
Requesting Provider: ED
Performing Provider: Nathan
Reason for Consultation: complex Saab
Medical History
History of Present Illness
ED note: 'This patient is a 63-year-old male who reportedly developed cardiac arrest while at home. A neighbor called 911 and upon their arrival patient was noted to be cyanotic and hunched over his table with agonal respirations. CPR was
initiated.'
In ED, Saab could not be placed by staff.
Past Medical History
Past Medical History: Other (COPD (Emphysema), GERD, HTN, Hypercholesterolemia, A-fib, Parkinson's, cirrhosis, hypertension, EVE with CPAP)
Past Surgical History: Other (Umbilical hernia with repair)
Social History
Unable to obtain full social history at this time due to: Patient Intubation
Tobacco: Former Smoker
Personal:
Living: With Family
Allergies/Home Medications
Allergies
Allergy/AdvReac Type Severity Reaction Status Date / Time
bacitracin (From Neosporin Allergy Rash Verified 12/20/21 13:48
([id number]))
neomycin (From Neosporin Allergy Rash Verified 12/20/21 13:48
([id number]))
polymyxin B (From Neosporin Allergy Rash Verified 12/20/21 13:48
([id number]-[id number]))
Home Medications
�Medication �Instructions �Recorded �Confirmed �Type
cholecalciferol (vitamin D3) 50 2,000 unit PO QPM Supplement 03/20/18 10/10/23 History
mcg (2,000 unit) tablet
docusate sodium 100 mg capsule 100 mg PO HS Constipation 03/20/18 10/10/23 History
ascorbic acid (vitamin C) 500 mg 500 mg PO BID Supplement 04/06/19 10/10/23 History
tablet (Vitamin C)
roflumilast 500 mcg tablet 500 mcg PO NOON Lung/breathing 04/06/19 10/10/23 History
(Daliresp) issues
rosuvastatin 20 mg tablet 20 mg PO NOON High cholesterol 03/06/21 10/10/23 History
rivaroxaban 20 mg tablet (Xarelto) 20 mg PO QPM #30 tabs 03/12/21 10/10/23 Rx
carbidopa 25 mg-levodopa 100 mg 1 tab PO TID@1100,1800,2200 12/20/21 10/10/23 History
tablet (Sinemet) Neurological Condition
furosemide 40 mg tablet (Lasix) 40 mg PO DAILY Fluid 12/20/21 10/10/23 History
retention/Swelling
albuterol sulfate 90 mcg/actuation 2 puff inhalation R Q4HPRN PRN sob 10/10/23 10/10/23 History
aerosol inhaler
fluticasone fur. 200 mcg-umeclid 1 inh inhalation R DAILY 10/10/23 10/10/23 History
62.5 mcg-vilant 25 mcg Lung/Breathing Issues
inhalat.powder (Trelegy Ellipta)
ipratropium 0.5 mg-albuterol 3 mg 3 ml inhalation R QID 10/10/23 10/10/23 History
(2.5 mg base)/3 mL nebulization Lung/Breathing Issues
soln
propranolol 80 mg capsule,24 80 mg PO NOON Blood Pressure 10/10/23 10/10/23 History
hr,extended release
tadalafil 5 mg tablet 5 mg PO HS prostate 10/10/23 10/10/23 History
pantoprazole 40 mg tablet,delayed 40 mg PO BID #60 tabs 10/18/23 Rx
release (Protonix)
Physical Exam
Vital Signs
Vital Signs
Pulse Resp BP Pulse Ox
128 22 89/59 98
08/27/24 20:07 08/27/24 20:07 08/27/24 19:55 08/27/24 20:07
Lab / Testing Results
Laboratory Results
08/27/24 18:49
08/27/24 18:49
Physical Exam
inubated adult male on ED bed
Genito-urinary: Other (bloddy circumcised penis)
Assessment / Plan
-
Procedure: 16 Fr temp-probe Saab with return of urine.
A: difficult Saab placement
P: Saab to monitor temp and UO
Data Reviewed
-
Old Records: Reviewed
[2024-08-27 21:00] LABS: B.E. -3.8 mmol/L; HCO3 25.0 mmol/L (21-28); O2 Saturation % 100.0 % (94-98); PCO2 61 mmHg (35-48); PO2 277 mmHg (83-108)
--- NOTE | 2024-08-27 21:02 | PHANOTE ---
08/27/2024, pt. intubated at time of interview; family does not know pt.'s meds.; used ecw records from 08/11/2024 and pharmacy records to compile a list of pt.'s meds.; could not confirm how pt. takes his meds. w/ pt. or spouse; spouse will help to
update the list later tonight when pt. is in a room.
--- NOTE | 2024-08-27 21:26 | HPS.HSE ---
Family Physician
-
Family Physician: NOT KNOW UNKNOWN - PT DOES
Chief Complaint
-
Cardiac Arrest
History of Present Illness
Patient is a 63y M with PMH significant for Parkinson's disease, A-Fib and hypertension who presents to ED in cardiac arrest. History obtained from ED staff and family. Patient was at home alone this evening when he called 911 complaining of
shortness of breath. His neighbor went to check on him and found him leaning over the kitchen table and gasping for breath. EMS arrived a short time later and patient was described as 'gasping' for air. He reportedly lost pulses and CPR was
initiated. Patient received CPR and 2 rounds of epinephrine total with ROSC. He was intubated in the field. Patient was brought to the ED for further evaluation.
He is unresponsive in the ED.
Family reports no prior history of IA, CVA, etc.
is currently hospitalized here with pneumonia.
Medical History
Past Medical History
Past Medical History: Reports Other
Additional Past Medical History:
COPD
Hypertension
Paroxysmal Atrial Fibrillation
RBBB
GERD
Parkinson's Disease
Chronic Anemia
Lumbar DDD
BPH
Past Surgical History: Reports Other
Additional Past Surgical History:
Umbilical Hernia Repair
Hemorrhoid Surgery
Social History
Tobacco: Former Smoker
Alcohol: None
Family History
Family History: Not pertinent
Allergies / Home Medications
Allergies reflects when Allergies were last updated in [employer].
Home Medications with original date entered in [employer]
Allergy/Medication List:
Unable to Obtain
If medication reconciliation has not been performed, why?: Unresponsive
Review of Systems
-
Unable to obtain full review of systems at this time due to: Patient Intubation
Physical Exam
Vital Signs
Vital Signs
Pulse Resp BP Pulse Ox
72 20 109/62 100
07/10/25 21:15 08/27/24 21:15 08/27/24 21:15 08/27/24 21:15
Physical Exam
General: Other (63y M unresponsive on ventilator. Mild diaphoretic.)
HEENT: Other (ETT in place. Neck supple without JVD.)
Respiratory: Other (Significantly decreased BS bilaterally. No rales / rhonchi.)
Cardiac: S1/S2, Irregular Rhythm and Tachycardia; No Murmur
GI: Soft, Non Tender, Non Distended and Normal Bowel Sounds
Musculoskeletal: No Clubbing, No Cyanosis and No Edema
Neuro: Other (Unresponsive.)
Laboratory Results
-
08/27/24 18:49
08/27/24 18:49
Laboratory Results
pH 7.22 (7.35-7.45) L 08/27/24 20:53
pCO2 61 mmHg (35-48) H 08/27/24 20:53
pO2 277 mmHg (83-108) H 08/27/24 20:53
HCO3 25.0 mmol/L (21-28) 08/27/24 20:53
Lactic Acid 8.5 mmol/L (0.7-2.0) H* 08/27/24 18:59
Total Bilirubin 2.3 mg/dl (0.2-1.3) H 08/27/24 18:49
AST 75 U/L (17-59) H 08/27/24 18:49
ALT 49 U/L (0-50) 08/27/24 18:49
Alkaline Phosphatase 112 U/L (38-126) 08/27/24 18:49
Troponin I 0.019 ng/ml 08/27/24 18:49
Impression/Plan
-
A/P: Patient is a 63y M with PMH significant for PA-Fib and COPD who presents to ED s/p cardiac arrest at home.
Cardiac Arrest
- Admit to ICU for further evaluation and treatment.
- TTM protocol / aggressive avoidance of fever.
- Continue vent support, pressor support if needed, etc.
- Follow serial neurologic exams.
- Monitor for clinical changes / meaningful recovery.
- Neurology, Cardiology and Flight Coordinator consultations.
- Check CT PE study - though lower suspicion as patient on Xarelto chronically.
COPD with Acute Exacerbation
- Initial respiratory distress resulted in cardiac arrest as described by witnesses / EMS.
- Diminished breath sounds throughout.
- IV steroids, nebs ATC.
- Cover with abx for now - note that currently hospitalized with pneumonia.
- Follow for clinical improvement.
- Continue vent support as noted above.
- Pulmonary / Flight Coordinator evaluation as noted above.
Paroxysmal Atrial Fibrillation
- In A-Fib with RVR initially (s/p epi doses) - since converted to NSR.
- Monitor on telemetry for any recurrent arrhythmia / tachycardia.
- Cardiology evaluation.
- Holding Xarelto acutely.
Benign Hypertension
Shock
- Presently hypotensive on requiring pressors to maintain perfusion.
- ? cardiogenic v septic shock.
- IVFs / pressor support.
- Echo for further evaluation.
- Abx as noted above for now.
- Follow serial lactate.
Parkinson's Disease
- Sinemet on hold acutely.
Chronic Thrombocytopenia
- Platelet counts slightly higher than usual.
- Follow for any changes.
- ? etiology.
BPH
- Difficult Saab placement in the ED. Appreciate Urology assistance.
- Maintain Saab for critical care I/Os and temperature monitoring.
DVT Prophylaxis: Lovenox
Code Status: Full
[2024-08-27 21:44] LABS: Triglycerides 124 mg/dl (10-149)
[2024-08-27 22:13] LABS: Magnesium 1.9 mg/dl (1.6-2.3)
--- NOTE | 2024-08-27 22:30 | PTCARENOTE ---
Rec'd pt from ED intubated s/p code on propofol and Luis. Patient sedation was stopped to assess neuro status. Pt with increased tone bilateral upper and lower extremities. PERRLA 4 brisk, with upward gaze of eyes. GCS 6 No tracking, no commands, no
purposeful movements noted. Reflexes intact. Rapid EEG, Ceribell device applied, no seizure activity noted. Sedation restarted and patient on arctic sun as ordered. Luis switched to Levo. NSR on monitor. Art line placed by SUKHDEV Manuel. Pulses
palpable, no edema. #7.5 tube, 26 at lip, tube retaped. NGT placed as ordered draining green brown bile. Abdomen round/obese with obvious hernia midline. Pt arrived with forbes from ED (placed by urology doc). Skin intact.
[2024-08-27 22:35] LABS: Glucose - Point of Care 98 mg/dl (70-99)
--- NOTE | 2024-08-27 22:37 | PHA.VAN.IN ---
Assessment
- Assessment
Renal Function: Appears similar to baseline (08/18/24 BASELINE SCR: 0.7)
Concomitant Antimicrobials: ZOSYN
- Previous Dosing Experience
Previous Regimen: 1GM IV Q12H
Date of Regimen: 03/06/21
Provided Trough of: 11.9 PREDICTED
Provided AUC of: 439 PREDICTED
Patient's SCR is: Decreased compared to previous dosing experience (03/06/21 SCR = 1.1)
Patient's weight is: Decreased compared to previous dosing experience (03/06/21 WT = 106 KG)
AUC Dosing Plan
- Dosing Variables
Dosing Weight (kg): 103
Dosing CrCl (ml/min): 100
Vd coefficient (L/kg): 0.7
- Empiric Dosing
Initial / Loading Dose: 2GM
Maintenance Regimen: 1500MG IV Q12H
Estimated AUC (mcg*h/mL): 507
Estimated Peak (mcg*h/mL): 32
Estimated Trough (mcg/ml): 12.8
Estimated Half Life (H): 7.9
Pharmacokinetics Vancomycin I
- -
Patient Age: 63
Patient Sex: Male
Vancomycin Day #: 1
Indication: Pulmonary/Respiratory
Requesting Provider: PAUL
Height / Weight:
Height 5 ft 10 in
Actual Weight 103 kg
Pertinent Past Medical History: COPD, [place]
- Vital Signs / Lab Results
Pulse Resp BP Pulse Ox
73 20 97/39 98
08/27/24 21:40 08/27/24 21:40 08/27/24 21:40 08/27/24 22:17
Lab Results - Hematology
08/27/24
18:49
WBC 21.6 H
Lab Results - Chemistry
08/27/24
18:49
BUN 11
Creatinine 0.8
Estimated Creat Clear 112
Albumin 4.5
08/27/24
18:59
Lactic Acid 8.5 H*
[2024-08-27] MEDS: VANCOCIN 540 MG IV (22:51)
[2024-08-27] MEDS: ZOSYN 50 IV (22:52)
[2024-08-27] MEDS: TYLENOL ORAL SOLUTION 650 MG TUBE (22:52)
[2024-08-27] MEDS: BUSPAR 30 MG TUBE (22:52)
[2024-08-28] VITALS (44 sets, daily range): BP systolic 92–136; BP diastolic 45–99; BMI 35.2
[2024-08-28] MEDS: NSS 1000 IV ×3 (00:41→16:26)
[2024-08-28] MEDS: SUBLIMAZE 100 IV ×2 (00:47→20:20)
--- NOTE | 2024-08-28 01:06 | W.PN.UPDATE ---
Addendum entered and electronically signed by CHRISTINE Forman 08/28/24 02:39:
add to above note:
consent implied emergent
Original Note:
Update Note
Progress Note Update
ARTERIAL LINE (A-Line) PLACEMENT
Date:08/28/24
Time: 0030
Indication: Hemodynamic monitoring
A time-out was completed verifying correct patient, procedure, site, positioning, and special equipment if applicable. Negro�s test was performed to ensure adequate perfusion. The patient�s left wrist was prepped and draped in sterile fashion. A 20G
Arrow arterial line was introduced into the radial artery. The catheter was threaded over the guide wire and the needle was removed with appropriate pulsatile�blood return. A sterile dressing applied. Perfusion to the extremity distal to the point
of catheter insertion was checked and found to be adequate.
Estimated Blood Loss: <5cc
The patient tolerated the procedure well and there were no complications.
[2024-08-28 01:42] LABS: B.E. -4.8 mmol/L; HCO3 21.1 mmol/L (21-28); O2 Saturation % 99.1 % (94-98); PCO2 41 mmHg (35-48); PO2 120 mmHg (83-108)
[2024-08-28 01:50] LABS: Hematocrit 41.8 % (39.0-52.0); Hemoglobin 13.1 g/dL (13.0-18.0); Mean Corp Hgb Conc. 31.3 g/dL (33.0-37.0); Mean Corpuscular Volume 79.3 fL (80.0-94.0); Platelet Count 109 10^3/uL (130-400); Red Cell Dist. Width 16.7 % (11.5-14.5)
[2024-08-28 01:58] LABS: INR 2.04; PT 23.6 Sec (11.4-14.6)
[2024-08-28 01:59] LABS: APTT 42.0 Sec (23.4-35.0)
[2024-08-28 02:05] LABS: ALT (SGPT) 49 U/L (0-50); AST (SGOT) 78 U/L (17-59); Albumin 3.4 g/dl (3.5-5.0); Alkaline Phosphatase 79 U/L (38-126); Blood Urea Nitrogen 20 mg/dl (9-20); Calcium 8.2 mg/dl (8.4-10.2); Carbon Dioxide 21 mmol/L (22-30); Chloride 110 mmol/L (98-107); Estimated Creatinine Clearance 69 ml/min; Glucose 154 mg/dl (70-99); Magnesium 1.4 mg/dl (1.6-2.3); Potassium 4.5 mmol/L (3.5-5.1); Sodium 137 mmol/L (135-145); Total Protein 5.9 g/dl (6.3-8.2); Triglycerides 133 mg/dl (10-149); eGFR > 60.00
[2024-08-28 02:14] LABS: Prealbumin (Transthyretin) 11.4 mg/dl (17.6-36.0)
[2024-08-28 02:18] LABS: Troponin I 0.212 ng/ml
[2024-08-28 02:29] LABS: CKMB 6.6 ng/ml (0.0-3.4)
[2024-08-28 02:44] LABS: Absolute Neutrophils -Man Diff 22.3 10^3/uL (1.4-6.5)
[2024-08-28 02:45] LABS: Anisocytosis 2+; Microcytosis 2+; Normal RBC Morphology No; Platelets Checked Yes; Total Cells Counted 100
--- NOTE | 2024-08-28 03:00 | PTCARENOTE ---
TTM interrupted to take patient to CT PE. When leaving floor, pt was 98.6 core temp. Upon arrival back to the ICU after CT scan, pt temp at 95.5, to be maintained cool for 24 hours starting at 0300. Goal reached at 0300. CT PE and CT Abdomen
completed as ordered. Labs sent, resulted, repleted. Will continue to monitor closely.
[2024-08-28] MEDS: DECADRON 6 MG IV ×2 (03:20→07:57)
[2024-08-28] MEDS: MAGNESIUM SULFATE 50 IV (03:22)
--- NOTE | 2024-08-28 03:26 | W.PN.UPDATE ---
Update Note
Progress Note Update
08/27/24
2299 Patient sedation was stopped and neuro status assessed, increased tone bilateral uppers and lowers, stiffness, and slight inward flexion noted with noxious stimuli applied to arms and legs. Patient does not blink to threat, does not have
purposeful movements. Rapid EEG, Ceribell device applied, zero percent noted for seizure activity. Sedation propofol and fentanyl restarted.
Family at bedside, updates given and all questions answered, and reviewed plan of care.
[2024-08-28] MEDS: NSS IV ×3 (04:08)
[2024-08-28 04:47] LABS: Glucose - Point of Care 162 mg/dl (70-99)
[2024-08-28] MEDS: VANCOCIN 530 MG IV (05:09)
[2024-08-28] MEDS: ZOSYN 50 IV ×4 (05:09→22:47)
[2024-08-28] MEDS: TYLENOL ORAL SOLUTION 650 MG TUBE ×4 (05:09→22:47)
[2024-08-28 05:59] LABS: Glucose - Point of Care 177 mg/dl (70-99)
[2024-08-28 06:12] LABS: Hematocrit 38.4 % (39.0-52.0); Hemoglobin 12.3 g/dL (13.0-18.0); Mean Corp Hgb Conc. 32.0 g/dL (33.0-37.0); Mean Corpuscular Volume 78.2 fL (80.0-94.0); Nucleated Red Blood Cells % 0 % (-); Platelet Count 103 10^3/uL (130-400); Red Cell Dist. Width 16.6 % (11.5-14.5)
[2024-08-28] MEDS: LEVOPHED 250 IV ×2 (06:14→16:25)
[2024-08-28 06:18] LABS: INR 1.95; PT 22.7 Sec (11.4-14.6)
[2024-08-28 06:19] LABS: APTT 42.7 Sec (23.4-35.0)
[2024-08-28 06:32] LABS: COVID-19 Antigen Negative (Negative)
[2024-08-28 06:35] LABS: ALT (SGPT) 45 U/L (0-50); AST (SGOT) 70 U/L (17-59); Albumin 3.1 g/dl (3.5-5.0); Alkaline Phosphatase 70 U/L (38-126); Blood Urea Nitrogen 21 mg/dl (9-20); Calcium 8.1 mg/dl (8.4-10.2); Carbon Dioxide 22 mmol/L (22-30); Chloride 108 mmol/L (98-107); Estimated Creatinine Clearance 67 ml/min; Glucose 184 mg/dl (70-99); HDL Cholesterol 41 mg/dl; LDL Cholesterol, Calculated 22 mg/dl; Magnesium 2.2 mg/dl (1.6-2.3); Potassium 3.7 mmol/L (3.5-5.1); Sodium 135 mmol/L (135-145); Total Protein 5.4 g/dl (6.3-8.2); Very Low Density Lipoprotein 27 mg/dl (0-30); eGFR 56.13
[2024-08-28 06:41] LABS: Prealbumin (Transthyretin) 10.4 mg/dl (17.6-36.0)
--- NOTE | 2024-08-28 07:04 | CON.INTV ---
Addendum entered and electronically signed by Kai Mata MD 08/28/24 16:44:
Patient seen and examined independently by myself. Resident note reviewed below. Agree with assessment and plan
History obtained from , son, inpatient and outpatient records. 63-year-old male with history of Parkinson's disease, atrial fibrillation, COPD, interstitial lung disease on home oxygen, presents with cardiopulmonary arrest. according to
family, patient was not feeling well over the last 24 to 48 hours. He then developed increased shortness of breath, call 911. Neighbor found him leaning over gasping for breath. Patient apparently lost pulse, CPR was started with 2 rounds of
epinephrine with return of spontaneous circulation. He was intubated in the field. He was unresponsive in the ED but there is some question as to whether there was some movement throughout the night, at 1 point TTM therapy was discontinued and
patient was found to have increased tone. Imaging without any acute findings.
For details regarding past medical history, social history, family history, review of systems please see below
Allergies reviewed
Physical exam, pupils are equal and sluggish. Patient does have some spontaneous movements of the lip, but does not follow commands
Intermittent upward gaze noted with sedation wean
Chest exam with mild wheezing
No crepitus
Data reviewed
CT imaging with severe emphysema, interstitial disease. There is a small left basilar pneumothorax per my review
No evidence of acute thromboembolic disease per imaging, head CT unremarkable
A/P
Patient remains critically ill
Continue with maintaining targeted temperature 97
Appreciate neurology input
Lactate normal, continue with IV fluids
Patient currently on norepinephrine, wean as able
Multiple rib and sternal fracture noted likely secondary to CPR
At risk for worsening pneumothorax. For now stable
We will follow closely, reviewed with interventional radiology. Will require chest tube if worsens
EKG on admission right bundle branch block. Present with bradycardia
Follow
Imaging also suggest cirrhotic liver. Follow-up
ABG reviewed
Remain on volume-cycled ventilation, will decrease rate, follow airway pressures, plateau pressure currently 21-24
Maintain sedation with propofol, fentanyl, RASS 0 to -2
Reviewed at length with critical care nursing, respiratory care, pharmacy
Reviewed with primary service
Reviewed briefly with interventional radiology
Updated son and multiple times throughout the day
TCCT 45 min
Original Note:
Consultation
Consultation Request
Date/Time Consultation Requested: August 28, 2024
Date/Time Consultation Performed: August 28, 2024
Medical History
-
Chief Complaint: cardiac arrest at home
History of Present Illness:
63 yo M PMH of atrial fibrillation on rivaroxaban, HTN, COPD, Parkinson's disease experienced cardiac arrest at home. He experienced dyspnea then called 911. After EMS arrived, he had no pulse. CPR was started, epinephrine x2 was administered, and
then he experienced return of spontaneous circulation. EMS intubated the patient in the filed, and he was brought to the hospital.
ED course was notable for EKG showing normal sinus rhythm with RBBB morphology. Initial imaging studies: CXR showed emphysematous changes in lung. CT head noncontrast showed no acute intracranial process, CT chest with contrast showed potential lung
cancer in RU lobe, ABRAHAM opacity c/f pneumonia. CT abdomen showed hepatic cirrhosis.
He was admitted to the ICU for further management, and a targeted temperature protocol was initiated.
Interim events n/f potential movements concerning for seizure-like state, hence EEG is being performed.
Social History
Tobacco: Former Smoker
Allergies / Home Medications
Allergies
Allergy/AdvReac Type Severity Reaction Status Date / Time
bacitracin (From Neosporin Allergy Rash Verified 12/20/21 13:48
([id number]))
neomycin (From Neosporin Allergy Rash Verified 12/20/21 13:48
([id number]))
polymyxin B (From Neosporin Allergy Rash Verified 12/20/21 13:48
([id number]))
Home Medications
�Medication �Instructions �Recorded �Confirmed �Last Taken �Type
docusate sodium 100 mg capsule 100 mg PO DAILYPRN PRN constipation 03/20/18 10/10/23 10/09/23 History
roflumilast 500 mcg tablet 500 mcg PO DAILY Lung/breathing 04/06/19 10/10/23 10/09/23 History
(Daliresp) issues
rosuvastatin 20 mg tablet 20 mg PO DAILY High cholesterol 03/06/21 10/10/23 10/09/23 History
rivaroxaban 20 mg tablet (Xarelto) 20 mg PO QPM #30 tabs 03/12/21 10/10/23 10/09/23 Rx
fluticasone fur. 200 mcg-umeclid 1 inh inhalation R DAILY 10/10/23 10/10/23 10/09/23 History
62.5 mcg-vilant 25 mcg Lung/Breathing Issues
inhalat.powder (Trelegy Ellipta)
ipratropium 0.5 mg-albuterol 3 mg 3 ml inhalation R Q6HPRN PRN sob 10/10/23 10/10/23 10/10/23 History
(2.5 mg base)/3 mL nebulization
soln
propranolol 80 mg capsule,24 80 mg PO DAILY Blood Pressure 10/10/23 10/10/23 10/09/23 History
hr,extended release
tadalafil 5 mg tablet 5 mg PO DAILY prostate 10/10/23 10/10/23 10/09/23 History
albuterol sulfate 90 mcg/actuation 1 - 2 puff inhalation R Q4HPRN PRN 08/27/24 08/27/24 Unknown History
aerosol inhaler (Ventolin HFA) sob
ascorbic acid (vitamin C) 1,000 mg 1,000 mg PO BID 08/27/24 Unknown History
tablet (Vitamin C)
azithromycin 500 mg tablet 500 mg PO DAILY 08/27/24 Unknown History
cholecalciferol (vitamin D3) 50 50 mcg PO DAILY 08/27/24 Unknown History
mcg (2,000 unit) tablet
lansoprazole 30 mg capsule,delayed 30 mg PO DAILY 08/27/24 Unknown History
release
prednisone 10 mg tablet 10 mg PO .TAPER 08/27/24 Unknown History
Review of Systems
-
Unable to Obtain full review of systems at this time due to: Patient Intubation
Vitals / Labs / Diagnostic Testing
Vital Signs
Temp Pulse Resp BP Pulse Ox
97 F 49 20 103/55 100
08/28/24 06:00 08/28/24 06:30 08/28/24 06:30 08/28/24 06:15 08/28/24 06:30
Laboratory Results
08/27/24 08/28/24 08/28/24
20:53 01:28 05:48
PT 23.6 H 22.7 H
INR 2.04 1.95
APTT 42.0 H 42.7 H
pH 7.22 L 7.32 L
pCO2 61 H 41
pO2 277 H 120 H
HCO3 25.0 21.1
O2 Delivery Level
WBC 19.5
Hgb 12.3
Plt 103
ABG 7.32/40/120
Lactate 2.1 down from 8.5
Cr 1.4 from 1.3
Troponin: 0.417 up from 0.212 prior
INR 1.95
Microbiology
MRSA swab: negative
Blood cultures pending
08/28/24 06:07 Nasal Swab Influenza Types A & B ([facility]) - Final
Negative for Influenza A & B, NAAT
Negative results must be combined with clinical observations
and patient history.
Nucleic Acid Amplification test (NAAT)performed on the
[employer] platform.
Diagnostic Testing:
CT PE
IMPRESSION:
1. Endotracheal and nasogastric tubes in normal position.
2. Severe calcific atherosclerotic plaque in the coronary arteries.
3. Severe bilateral upper lobe centrilobular emphysema.
4. Interval increase in size of a 2.2 cm irregular shaped nodular opacity in the right lung apex. Diagnostic possibilities are (1) progressive scarring or (2) right upper lobe lung cancer.
5. Multiple other stable solid pulmonary nodules in the upper lobes of both lungs which are likely secondary to scarring and previous infection.
6. Mild amount of ground-glass opacity in the left upper lobe suspicious for pneumonia.
7. Small dependent airspace consolidations in the lower lobes (probably atelectasis).
8. Minimal bilateral pleural effusions.
9. Acute bilateral anterolateral rib fractures and acute nondisplaced sternal fracture consistent with recent cardiopulmonary resuscitation.
10. Moderate hepatic cirrhosis.
CT A/P
IMPRESSION:
1. MODERATE HEPATIC CIRRHOSIS.
2. Cholelithiasis.
3. Mild splenomegaly.
4. Severe diverticulosis in the sigmoid colon.
5. Severe midline diastases of the rectus abdominis muscles.
6. Nasogastric tube, Saab catheter, and left common femoral central venous lines in place.
7. Moderate multilevel lumbar discogenic degenerative disease.
8. Moderate left convex curvature of the midlumbar spine.
CT Head
IMPRESSION:
1. No CT evidence for acute intracranial hemorrhage or transcortical infarct.
2. Mild bilateral parietal lobe volume loss.
3. Low-lying cerebellar tonsils (or Chiari I malformation).
4. Endotracheal tube in place.
CXR
IMPRESSION:
1. Endotracheal and nasogastric tubes in normal position.
2. Severe bilateral upper lobe centrilobular emphysema.
3. Multiple bilateral upper lobe nodular opacities most consistent with scarring and chronic infection.
Cardiovascular testing
Echocardiogram October 13, 2021:
CONCLUSIONS
1. Left ventricle: Normal size and function with an estimated ejection
fraction of 55 to 60%. Mild concentric LVH. No regional wall motion
abnormalities.
2. Right ventricle: Normal
3. Atria: Normal
4. Mitral valve: Mild mitral regurgitation
5. Aortic valve: Sclerotic. No aortic insufficiency. Trileaflet valve.
6. Tricuspid valve: Trace tricuspid regurgitation. Estimated pulmonary artery
systolic pressures are 34-36 mmHg
7. There has been no significant change since the most recent echocardiogram
from 04/09/2019
Physical Exam
-
HEENT: Normocephalic
Cardiovascular: Other (no murmurs)
Respiratory: Other (coarse breath sounds, intubated on ventilator)
GI: Soft
Neurology: Other (intubated)
Assessment
-
63 yo M PMH of atrial fibrillation, HTN, COPD, Parkinson's disease s/p at-home cardiac arrest. Per chart review, patient experienced dyspnea preceding the arrest.
The etiology of the cardiac may be pulmonary, cardiogenic, infectious or a combination of the 3. He has a history of advanced COPD, and an illness may have triggered an exacerbation that was severe enough to precipitate cardiac arrest. Imaging
showed coronary artery plaque burden which may have led to ACS, then cardiac arrest. He also has an elevated white count, which may be attributed to an infection or reactive leukocytosis to significant stress.
During the course of the admission, the troponins have continued to increase which indicates myocardial stress; however, ischemic signs were not easily seen on the EKG.
Chest imaging was notable for possible ABRAHAM pneumonia, rib fractures c/w CPR administration, RUL mass c/f lung malignancy, emphysema, cirrhosis.
Interim events were concerning for a potential seizure-like movements, prompting evaluation with EEG (which is ongoing).
Given emphysema, COPD and recent rib fractures and intubated, the patient is at risk of developing pneumothorax. Closely follow VS, labs, and any imaging.
For assessment and plan,
Neuro:
- EEG evaluation ongoing, neurology is following
CV:
- norepinephrine 8mg, TTM goal temperature 97%, follow labs per protocol (ABG, CBC, troponin etc.)
- Echocardiogram order, cardiology is following
- prior echo disclosed EF 55-60% in 2021 per above
- f/u ABG and consider CXR
Respiratory:
- Ventilator settings: 20/500/5/40%, peak pressure 37, plateau pressure 24
- Steroids and zosyn for COPD exacerbation
GI:
- pantoprazole
- hepatic cirrhosis
Renal:
- NS 100cc/hr
ID:
- zosyn should cover community acquired pneumonia
- MRSA swab negative, d/c vancomycin
Heme:
- lovenox
- rivaraoxaban held
- elevated INR, monitor coagulation studies given hepatic cirrhosis
Endo:
- monitor blood glucose, sliding scale insulin
Plan summary:
- TTM protocol, follow-up labs, trend parameters
- f/u ABG and consider CXR
Recommendations are not final until attg attestation
Data Reviewed
-
EKG: Report reviewed by me
Radiology: Report reviewed by me
CT Scan: Report reviewed by me
[2024-08-28 07:40] LABS: Glycohemoglobin (HgbA1c) 5.8 % (4.0-5.6)
[2024-08-28] MEDS: DUONEB 3 ML INH ×4 (07:40→19:46)
[2024-08-28 07:42] LABS: CKMB 7.8 ng/ml (0.0-3.4)
--- NOTE | 2024-08-28 07:47 | PN.DE.MGMTRT ---
Insulin Management
- -
08/28/2024: Diabetes Management Consult
63 year old male with PMH: Parkinson's disease, A-Fib, RBBB, HTN, Advanced COPD, Severe emphysema, Severe EVE, GERD, Chronic Anemia, Lumbar DDD, BPH and pre-diabetes. Patient presented to the ED in cardiac arrest. Hx obtained from chart review and
Nurse. Patient was at home alone this when he called 911 c/o SOB. His neighbor went to check on him and found him leaning over the kitchen table and gasping for breath. EMS arrived a short time later and patient was described as 'gasping' for air.
He reportedly lost pulses and CPR was initiated. Patient received CPR and 2 rounds of epinephrine total with ROSC. He was intubated in the field and brought to the ED for further evaluation.
Family reports no prior hx of MO, CVA or diabetes. is currently hospitalized here with pneumonia. There is no indication of pt taking diabetes medications prior to admission. AC is 5.8%, Cr 1.4, eGFR 56.13
Patient is critically ill, remains intubated on ventilator and sedated, unable to interview.
Patient was started on IV steroids- Decadron 6mg IV Q6hrs, contributing to Hyperglycemia. Glucose has trended up to 188, Critical care glycemic protocol has been ordered but not yet started. per Nurse, would like to HOLD off on starting the
insulin infusion. Moderate corrective insulin has been ordered.
Will cont to follow and assist with glucose management if needed. Discussed with Nurse.
Diabetes History
- -
Type of Diabetes: 2
Pre-Admission Diabetes Regimen
08/27/24 08/28/24 08/28/24
18:49 01:28 05:48
Creatinine 0.8 1.3 1.4 H
Lab Results
Hemoglobin A1c Cancelled 08/27/24 21:52
Insulin Pump Settings
IP Diabetes Regimen
08/27/24 08/27/24 08/27/24
18:46 18:49 22:20
Glucose 125 H
POC Glucose 117 H 98
08/28/24 08/28/24 08/28/24
01:28 04:35 05:47
Glucose 154 H
POC Glucose 162 H 177 H
08/28/24
05:48
Glucose 184 H
POC Glucose
Patient Education
[2024-08-28] MEDS: PROTONIX IV 40 MG IV (07:56)
[2024-08-28] MEDS: NSS (PRESERVATIVE FREE) 10 ML IV (07:56)
[2024-08-28] MEDS: REFRESH CELLUVISC GEL 1 DROPS BOTH EYES ×2 (07:56→20:23)
[2024-08-28] MEDS: BUSPAR 30 MG TUBE ×3 (07:56→22:47)
[2024-08-28 08:06] LABS: Glucose - Point of Care 167 mg/dl (70-99)
--- NOTE | 2024-08-28 08:38 | PTCARENOTE ---
Addendum entered by Sarah So RN 08/28/24 10:17:
Dr. Mata aware of rass, weaning sedation as tolerated. Dr. Goldberg at bedside, both mds aware of nonpurposeful movements
Addendum entered by Sarah So RN 08/28/24 08:40:
per Dr. Mata do not start insulin gtt at this time.
Original Note:
pt received from previous rn- ett to vent- see settings as charted. pt sb with bbb and pvcs on monitor, cardiology at bedside and aware of bursts of svt, pt breaks out on his own. left radial hilda zeroed and functioning. levophed continues for
map>65. pt remains on propofol and fentanyl, positive cough and gag, pupils equal and reactive. right nare ngt to low int. suction. forbes draining yellow urine. pt remains on TTM protocol, see flowsheet. and son at bedside and updated. eeg on.
all safety precautions in place.
--- NOTE | 2024-08-28 09:12 | CON.CAR ---
Addendum entered and electronically signed by Demian Goldman MD 08/28/24 10:34:
63-year-old man admitted with presumed respiratory arrest and suspected anoxic encephalopathy. Family members called EMS for severe dyspnea. CPR initiated, with ACLS algorithms and asystole he received epinephrine and CPR with recovery of rhythm,
never received shock, had ROSC and now admitted with targeted temperature protocol. Known history of COPD.
PMH: COPD, paroxysmal A-fib, right bundle, hypertension, Parkinson's, PVCs and history of nonsustained VT, sleep apnea, ex-smoker, cirrhosis by CT scan
Rest of history not obtainable no family at bedside presents
110/50, pulse 49, on ventilator, paralyzed, pupils 3 mm not responsive, does not withdraw to pain, grossly nonfocal, diminished breath sounds, regular rate and rhythm abdomen obese, extremities without edema, pulses palpable
Chest x-ray possible mild vascular congestion COPD, endotracheal tube
CT scan of abdomen and pelvis cirrhosis, suspect splenomegaly,
head CT no active disease
ECG probable sinus tachycardia with PVCs right bundle branch block, indeterminate axis, Repeat EKG sinus rhythm, right bundle branch block left axis deviation, possible inferior IL
White count 19.5, hemoglobin 12.3, platelets 103
Lactic acid 2.1, BUN/creatinine 21 and 1.4, troponin 0.417
Impression:
Vfq-up-nugzqbab respiratory arrest
For complete impression, see below
Plan:
As below per Liberty Gore. Reviewed in detail and agree, unless otherwise specified.
He presents with an zxq-we-xmvhqptq respiratory arrest, with asystole likely related to CO2 retention/acidosis, with ROSC following CPR and epinephrine, no shocks delivered
Troponin is minimally elevated and no acute changes on ECG.
Primary issue is presumably respiratory and not cardiac. Will continue supportive care. Currently he is on norepinephrine at 8 mcg/min. Check echocardiogram. His prior echocardiogram from 2021 was overall unremarkable.
Nurses report brief runs of SVT, however no indication for amiodarone or other arrhythmic agents at this time.
Suspect troponin of 0.417 is non-ACS myocardial injury from hypoxemia.
Concern for significant anoxic encephalopathy, prognosis very guarded, currently on targeted temperature protocol.
Prognosis is very guarded
Original Note:
Consultation
Consultation Request
Date/Time Consultation Performed: 08/28/24
Requesting Provider: Dr. Melissa
Performing Provider: Liberty Gore PA-C for Dr. SANDI Goldman
Reason for Consultation: arrest
Medical History
-
Chief Complaint: arrest
History of Present Illness:
Patient is a 63-year-old male with past medical history of advanced COPD, paroxysmal atrial fibrillation on chronic Xarelto, chronic right bundle branch block, hypertension, Parkinson's disease, who reportedly called EMS after being acutely short of
breath yesterday evening. He also called his neighbor around the same time, and they arrived to patient's home at similar times. By the time they got there, patient was leaning over the kitchen table 'gasping for air'. Shortly after he lost
pulses and CPR was initiated. He also received 2 rounds of epinephrine with ROSC but never had shockable rhythm. He was intubated in the field and brought to the ER for admission. Of note his is also currently hospitalized here with
pneumonia.
PMH:
Paroxysmal Afib and atrial tachycardia
Chronic Xarelto OAC
PVCs, bigeminy, and NSVT
cRBBB
Advanced COPD
Severe emphysema
Severe EVE
HTN
Hyperlipidemia
History of GI bleed
Parkinson's disease
Former smoker
Past Medical History
Past Medical History: Other (in HPI)
Social History
Tobacco: Former Smoker
Family History
Family History: Unable to Obtain
Allergies / Home Medications
Allergy/AdvReac Type Severity Reaction Status Date / Time
bacitracin (From Neosporin Allergy Rash Verified 12/20/21 13:48
([id number]))
neomycin (From Neosporin Allergy Rash Verified 12/20/21 13:48
([id number]-[id number]))
polymyxin B (From Neosporin Allergy Rash Verified 12/20/21 13:48
(vyu-gvx-oyosy))
�Medication �Instructions �Recorded �Confirmed �Type
docusate sodium 100 mg capsule 100 mg PO DAILYPRN PRN constipation 03/20/18 10/10/23 History
roflumilast 500 mcg tablet 500 mcg PO DAILY Lung/breathing 04/06/19 10/10/23 History
(Daliresp) issues
rosuvastatin 20 mg tablet 20 mg PO DAILY High cholesterol 03/06/21 10/10/23 History
rivaroxaban 20 mg tablet (Xarelto) 20 mg PO QPM #30 tabs 03/12/21 10/10/23 Rx
fluticasone fur. 200 mcg-umeclid 1 inh inhalation R DAILY 10/10/23 10/10/23 History
62.5 mcg-vilant 25 mcg Lung/Breathing Issues
inhalat.powder (Trelegy Ellipta)
ipratropium 0.5 mg-albuterol 3 mg 3 ml inhalation R Q6HPRN PRN sob 10/10/23 10/10/23 History
(2.5 mg base)/3 mL nebulization
soln
propranolol 80 mg capsule,24 80 mg PO DAILY Blood Pressure 10/10/23 10/10/23 History
hr,extended release
tadalafil 5 mg tablet 5 mg PO DAILY prostate 10/10/23 10/10/23 History
albuterol sulfate 90 mcg/actuation 1 - 2 puff inhalation R Q4HPRN PRN 08/27/24 08/27/24 History
aerosol inhaler (Ventolin HFA) sob
ascorbic acid (vitamin C) 1,000 mg 1,000 mg PO BID 08/27/24 History
tablet (Vitamin C)
azithromycin 500 mg tablet 500 mg PO DAILY 08/27/24 History
cholecalciferol (vitamin D3) 50 50 mcg PO DAILY 08/27/24 History
mcg (2,000 unit) tablet
lansoprazole 30 mg capsule,delayed 30 mg PO DAILY 08/27/24 History
release
prednisone 10 mg tablet 10 mg PO .TAPER 08/27/24 History
Review of Systems
-
Unable to obtain full review of systems at this time due to: Patient Intubation
Physical Exam
Vital Signs
Temp Pulse Resp BP Pulse Ox
96.9 F L 49 20 118/66 100
08/28/24 08:00 08/28/24 08:00 08/28/24 08:00 08/28/24 07:45 08/28/24 08:00
Lab Results
Troponin I Cancelled 08/28/24 03:52
Btd-X-Rsmmmedmubx Pept 159 pg/ml 08/27/24 18:49
Physical Exam
General: No Apparent Distress, Intubated and Other (on TTM)
HEENT: Normocephalic and Moist Mucous Membranes
Respiratory: Wheezes
Cardiac: S1/S2 and Regular Rhythm
Musculoskeletal: No Clubbing, No Cyanosis and No Edema
Skin: Warm and Dry
Neuro: Sedated
Impression / Plan
-
Primary Molder Labels: Dr. Lazo
Assessment:
Shortness of breath
OOH cardiac arrest
Acute exacerbation of advanced COPD
VDRF
Acute hypotension, requiring pressors
KEISHA
Elevated troponin
Paroxysmal Afib and atrial tachycardia
Chronic Xarelto OAC
PVCs, bigeminy, and NSVT
cRBBB
Advanced COPD
Severe emphysema
Severe EVE
Chronic thrombocytopenia
HTN
Hyperlipidemia
History of GI bleed
Parkinson's disease
Former smoker
Echo 10/13/2021: EF 55 to 60%, mild concentric LVH, no regional wall motion abnormalities, mild MR, trace TR, PAP 34 to 36 mmHg
Plan:
- Patient presented as bsv-kl-rkqmpgms cardiac arrest requiring CPR, epi x 2 with ROSC. Never had shockable rhythm. Suspect primary respiratory event. He is chronically oxygen dependent from COPD
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
- Chest x-ray also with evidence of mild acute cardiogenic pulmonary edema. Follow volume status, may require eventual diuresis
- On TTM protocol
- undergoing EEG. Head CT without evidence for acute intracranial hemorrhage or infarct
- Currently intubated, sedated
- On levo at 8, wean as able
- He is noted to have some brief runs of NSVT on telemetry. He has history of PVCs, ventricular bigeminy and NSVT in past. Replete K, 3.7. Keep K greater than 4 and mag greater than 2. Outpatient propranolol on hold as requiring levo.
- He was felt to be in atrial fibrillation on arrival to ER post code, however then converted to sinus rhythm. Remains in sinus rhythm at this time, repeat EKG. Would have low threshold to start Amio if continues with NSVT/A-fib
- Last echo from 2021 as above, repeat
- Troponin 0.2, trend to peak. Suspect non-IL troponin elevation in setting of above, however may require eventual ischemic evaluation
- discussed with nursing
Data Reviewed
-
EKG: Tracing Personally Visualized and interpreted
Radiology: Report Reviewed by me
CT Scan: Report Reviewed by me
Medical Tests (Nuc Med, Echo etc): Report Reviewed by me
Labs: Labs Reviewed by me
Old Records: Reviewed
[2024-08-28 09:15] LABS: Glucose - Point of Care 188 mg/dl (70-99)
[2024-08-28 09:15] LABS: B.E. -3.5 mmol/L; HCO3 20.3 mmol/L (21-28); O2 Saturation % 99.4 % (94-98); PCO2 32 mmHg (35-48); PO2 172 mmHg (83-108)
[2024-08-28 09:49] LABS: Troponin I 0.417 ng/ml
--- NOTE | 2024-08-28 10:05 | W.PN.HOSP.TC ---
Today's Communication/Plan
-
cont abx
TTM vent support sedation as per ICU
wean pressors as tolerated
steroids bronchodilators
glycemic control
Assessment / Plan
Assessment / Plan
Physical Exam
General: sedated intubated
HEENT: ETT in place. Neck supple without JVD. Pinpoint pupils b/l
Respiratory: Diffusely wheezing expiratory
Cardiac: S1/S2, Sinus Scott; No Murmur
GI: Soft, Non Tender, Non Distended and Normal Bowel Sounds
Musculoskeletal: No Clubbing, No Cyanosis and No Edema
Neuro: sedated
Psych: Calm
63M with PMH significant for PA-Fib and COPD who presents to ED s/p cardiac arrest at home.
Cardiac Arrest
- Cont care as per ICU
- Viscosity Inspector eval appreciated
- TTM protocol / aggressive avoidance of fever.
- vent support as per ICU, cont pressor support as necessary
- Neurology consult appreciated
- Cardiology consult appreciated Suspect troponin of 0.417 non-ACS myocardial injury from hypoxemia.
- Viscosity Inspector consult appreciated
CT Chest appreciated
-Severe bilateral upper lobe centrilobular emphysema
-Interval increase in size of a 2.2 cm irregular shaped nodular opacity in the right lung apex- progressive scarring vs right upper lobe lung cancer.
-possible ABRAHAM PNA
-Acute bilateral anterolateral rib fractures and acute nondisplaced sternal fracture consistent with recent cardiopulmonary resuscitation.
-small Lt Pneumothorax
- Moderate hepatic cirrhosis.
COPD with Acute Exacerbation
Possible PNA, recently hospitalized for suspected sepsis PNA
- Initial respiratory distress resulted in cardiac arrest as described by witnesses / EMS.
- IV steroids, nebs ATC.
- empiric zosyn, vanc discontinued w/ neg MRSA screen
- vent support as above.
Paroxysmal Atrial Fibrillation
- In A-Fib with RVR initially (s/p epi doses) - since converted to NSR.
- Monitor on telemetry for any recurrent arrhythmia / tachycardia.
- Cardiology evaluation.
- Holding Xarelto acutely.
Benign Hypertension
Shock
- cardiogenic v septic shock.
- IVFs / pressor support/abx
- Echo for further evaluation.
- Lactic acidosis trended down
Parkinson's Disease
- Eventual restart Parkinson medications, needs med reconciliation
Chronic Thrombocytopenia
- Monitor
BPH
- Difficult Asab placement in the ED. Urology assistance appreciated
- Maintain Saab for critical care I/Os and temperature monitoring.
DVT Prophylaxis: Lovenox
Code Status: Full
Total Critical Care Time__50___ minutes. I was immediately available to the patient and staff. I personally examined, reviewed labs, diagnostic images/reports, interpretations, treatment plans, discussed patient care with other providers and
family (son same name Ashvin, daughter Christina, Shilpi), patient unable to make decisions at this time, entered orders as appropriate and documented medical record.
Anticipated Discharge: > 48 hours
Subjective/Interval History
-
Date of Service: August 28, 2024
sedated intubated though some spontaneous movements noted.
Objective Data
-
Labs:
Laboratory Results
08/28/24 08/28/24 08/28/24
01:00 01:28 05:48
WBC Cancelled 23.5 H 19.5 H
Hgb Cancelled 13.1 12.3 L
Hct Cancelled 41.8 38.4 L
Plt Count Cancelled 109 L 103 L
PT 23.6 H 22.7 H
INR 2.04 1.95
APTT 42.0 H 42.7 H
HCO3 21.1
Sodium 137 135
Potassium 4.5 3.7
Chloride 110 H 108 H
Carbon Dioxide 21 L 22
BUN 20 21 H
Creatinine 1.3 1.4 H
Glucose 154 H 184 H
Calcium 8.2 L 8.1 L
Total Bilirubin 2.6 H 2.9 H
AST 78 H 70 H
ALT 49 45
Alkaline Phosphatase 79 70
08/28/24 08/28/24 08/28/24
08:58 13:00 19:00
WBC Pending Pending
Hgb Pending Pending
Hct Pending Pending
Plt Count Pending Pending
PT
INR
APTT
HCO3 20.3 L
Sodium Pending Pending
Potassium Pending Pending
Chloride Pending Pending
Carbon Dioxide Pending Pending
BUN Pending Pending
Creatinine Pending Pending
Glucose Pending Pending
Calcium Pending Pending
Total Bilirubin Pending Pending
AST Pending Pending
ALT Pending Pending
Alkaline Phosphatase Pending Pending
08/28/24
21:00
WBC
Hgb
Hct
Plt Count
PT
INR
APTT
HCO3 Pending
Sodium
Potassium
Chloride
Carbon Dioxide
BUN
Creatinine
Glucose
Calcium
Total Bilirubin
AST
ALT
Alkaline Phosphatase
Vital Signs:
Vital Signs
Temp Pulse Resp BP Pulse Ox
97.2 F 49 20 118/66 100
08/28/24 10:00 08/28/24 08:00 08/28/24 08:00 08/28/24 07:45 08/28/24 08:00
I&O
08/27/24 08/28/24 08/29/24
06:59 06:59 06:59
Intake Total 1221.6 / 1379.7 632.4 / 632.4
Output Total 860 / 890 235 / 235
Balance 361.6 / 489.7 397.4 / 397.4
--- NOTE | 2024-08-28 10:07 | EEG.RPT ---
Electroencephalogram Report
Recording
Date of EE08/28/24
Type of EEG: Routine
Length of EEG recordin minutes
Done with Video Recording: Yes
Patient Status: Inpatient
Recording Conditions: Awake, Drowsy and Asleep
Hyperventilation Performed: No
Photic Stimulation Performed: Yes
Report
Greater THAN 1 HOUR EEG REPORT
EEG INTERPRETATION:
Severely abnormal EEG for age due to diffuse bihemispheric slowing
CLINICAL CORRELATION:
This study was suggestive of diffuse cortical dysfunction without focal abnormality. No seizures were recorded.
Clinical correlation is advised.
METHODS:
A 21 channel digitized electroencephalogram (EEG) was performed at the bedside. The 10/20 international system of electrode placement was used with ECG and lateral/vertical eye movements recorded. Persyst QEEG monitoring was performed.
QUALITY OF STUDY:
Fair�good with muscle artifact
ELECTROENCEPHALOGRAPHER IMPRESSION(S):
Background
There was a low amplitude unorganized anterior-posterior voltage gradient of delta frequency
There were no significant asymmetries of background activity noted.
Sleep
Drowsiness present
Photic Stimulation
Failed to activate the record.
ECG
Normal sinus rhythm
--- NOTE | 2024-08-28 10:16 | CON.NEURO4 ---
Addendum entered and electronically signed by Elan Goldberg MD 08/28/24 11:13:
Studies reviewed. I agree with the findings as listed by my colleague and nurse practitioner, Madeline Gould.
Unresponsive. No acute distress. No tremor.
Funduscopic exam unremarkable. Pupils responsive to light.
Reflexes unremarkable
No myoclonus. Patient does have some spontaneous irregular movements proximally and distally, likely due to subconscious planning
Impressions:
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
The likelihood of the patient having a significant and meaningful neurological recovery is fair to good based on the patient's relatively short downtime, no significant changes by CT of head, EEG not demonstrating a malignant pattern, and the
patient's spontaneous movements despite use of sedation currently. Best prognosis may be determined 3 days after onset of anoxic injury.
Continue supportive care
Check EEG
Goal of normotension
Provide IV iron due to low ferritin and prior history of restless leg syndrome
Continue patient's usual medications for treatment of Parkinson's disease. None are listed on his outpatient prescriptions
Will follow
Original Note:
Consultation - Neurology 4
-
CONSULTING PHYSICIAN: Elan Goldberg MD
REFERRING PHYSICIAN: Hospitalists/Dr. Melissa
DICTATED BY: CHRISTINE Hwang
DATE/TIME OF REQUEST: 08/28/24
DATE/TIME OF CONSULTATION: 08/28/24
Reason for Consultation: Cardiac Arrest
History of Present Illness:
This is a 63-year-old right-handed male who has presented to the hospital on 08/27/24 with report of cardiac arrest. Patient has been previously followed by our Neurology service as an outpatient for tremor, restless legs, and now confirmed
diagnosis of Parkinson's disease with positive ANDREEA scan imaging. He had previously been instructed to start Sinemet 25/100 four times a day in place of propranolol for tremor, but it does not appear that he did this.
His is currently hospitalized at [facility] with pneumonia. Yesterday (08/27/24), patient had been experiencing shortness of breath, cough, and chest heaviness. Last evening, he called EMS and his neighbor reporting that he was having trouble
breathing, and they found him leaning over his kitchen table gasping for air. He then lost consciousness and became pulseless, CPR was initiated. He received epi x2 with achievement of ROSC and he was intubated in field. CT head was obtained on
arrival and is unremarkable. TTM with goal of normothermia was initiated. Patient is intubated/sedated in the ICU.
Past Medical History: Paroxysmal Afib (rivaroxaban), paroxysmal Atach, Parkinson's disease (+ANDREEA scan), BENDER, PVS, bigeminy, NSVT, RBBB, advanced COPD, severe emphysema, EVE (noncompliant with cpap), HTN, HLD, GI bleed, iron deficiency anemia,
restless legs syndrome, lumbar radiculopathy/spondylosis, DJD
Surgical History: Umbilical hernia repair, hemorrhoid surgery vs banding, R L4 and L5 TFESI
Family History: Reviewed and noncontributory.
Social History: Former smoker.
Allergies: Neosporin.
Home Medications: See below.
Review of Symptoms:
Per the HPI. I am unable to obtain a complete review of systems�because of patient's inability to provide history.
Physical Exam:
The patient is intubated/sedated, on TTM, breathing is unlabored on mechanical ventilation, skin is cool and dry, no edema.
Neurologic Examination:
The patient is intubated/sedated on TTM. He does not follow any commands. +Cough/gag/corneals. On cranial nerve assessment, pupils are 3 mm bilateral, round and reactive to light and accommodation. LYUDMILA visual bowers and EOMs, no gaze deviation
noted. LYUDMILA hearing. LYUDMILA tongue palate and uvula. To painful stimuli, +flicker withdraw in all extremities. Also has some spontaneous, nonrhythmic limb and head movement. Deep tendon reflexes are 2+ bilateral upper and lower extremities and Babinski
is absent bilaterally. LYUDMILA coordination.
Lab Results: See below.
Neuro Imaging:
1. CT Head 08/27/24: No CT evidence for acute intracranial hemorrhage or transcortical infarct. Mild bilateral parietal lobe volume loss. Low-lying cerebellar tonsils (or Chiari I malformation). Endotracheal tube in place.
Differentials for the patient's presentation include:
1. Cardiac arrest. Early to determine neurological prognosis, but no clear evidence of significant anoxic brain injury at this point.
Recommendations:
-EEG pending.
-Wean sedation as tolerated.
-Consider MRI brain imaging if he does not improve.
Discussed patient care with: Dr. Goldberg, the patient's spouse and son, ICU team
Vital Signs and Labs
-
Vital Signs and Labs:
Vital Signs
Temp Pulse Resp BP Pulse Ox
97.2 F 49 20 110/50 98
08/28/24 10:00 08/28/24 10:00 08/28/24 10:00 08/28/24 10:00 08/28/24 10:00
PT 22.7 Sec (11.4-14.6) H 08/28/24 05:48
INR 1.95 08/28/24 05:48
APTT 42.7 Sec (23.4-35.0) H 08/28/24 05:48
Sodium 135 mmol/L (135-145) 08/28/24 05:48
Potassium 3.7 mmol/L (3.5-5.1) 08/28/24 05:48
BUN 21 mg/dl (9-20) H 08/28/24 05:48
Glucose 184 mg/dl (70-99) H 08/28/24 05:48
Calcium 8.1 mg/dl (8.4-10.2) L 08/28/24 05:48
Phosphorus 3.7 mg/dl (2.5-4.5) 08/28/24 05:48
Knr-J-Pgrnsgjylyl Pept 159 pg/ml 08/27/24 18:49
LDL Cholesterol, Calc 22 mg/dl 08/28/24 05:48
Medications
-
Active Medications
Generic Name Dose Route Start Last Admin
Trade Name Freq PRN Reason Stop Dose Admin
Acetaminophen 650 mg 08/28/24 04:00 08/28/24 10:02
Acetaminophen (Oral Solution) 650 Mg/20.3 Ml Cup TUBE 09/25/24 03:59 650 mg
Q6H ISAEL Administration
Acetaminophen 650 mg 08/27/24 21:52
Acetaminophen 650 Mg Rectal Suppository RECTAL 08/31/24 21:51
Q6HPRN PRN
if cannot be given via tube
Albuterol Sulfate 2.5 mg 08/27/24 21:52
Albuterol Nebs 2.5 Mg/3 Ml Ampul INH
R Q4HPRN PRN
SOB
Protocol
Albuterol/Ipratropium 3 ml 08/28/24 08:00 08/28/24 07:40
Ipratropium 0.5/Albuterol 3 Mg (3 Ml Ampul) INH 3 ml
R QID ISAEL Administration
Protocol
Buspirone HCl 30 mg 08/28/24 08:00 08/28/24 07:56
Buspirone 15 Mg Tablet TUBE 09/25/24 07:59 30 mg
Q8 ISAEL Administration
Carboxymethylcellulose Sodium 1 drops 08/28/24 08:00 08/28/24 07:56
Carboxymethylcellulose Ophth Gel (Celluvisc) Droperette BOTH EYES 09/25/24 07:59 1 drops
BID ISAEL Administration
Dexamethasone Sodium Phosphate 6 mg 08/28/24 02:00 08/28/24 07:57
Dexamethasone 4 Mg/Ml 1 Ml Vial IV 09/25/24 01:59 6 mg
Q6H ISAEL Administration
Dextrose 12.5 grams 08/28/24 05:59
Dextrose 50% (0.5 Grams/Ml) 50 Ml Syringe IV 09/25/24 05:58
[id number] PRN
Blood Glucose < 70
Enoxaparin Sodium 40 mg 08/28/24 18:00
Enoxaparin Sodium 40 Mg/0.4 Ml Syringe SC 09/25/24 17:59
QPM ISAEL
Fentanyl Citrate 50 mcg 08/27/24 21:52
Fentanyl (50 Mcg/Ml) 100 Mcg/2 Ml Ampul IV 09/10/24 21:51
[id number] PRN
see protocol
Protocol
Fentanyl Citrate 1,000 mcg in 100 mls @ 0 mls/hr 08/27/24 21:52 08/28/24 00:47
Sublimaze IV 100 mls
PER PROTOCOL ISAEL Administration
Protocol
Per Protocol
Norepinephrine Bitartrate 4 mg in 250 mls @ 0 mls/hr 08/27/24 21:52 08/28/24 06:14
Levophed IV 250 mls
PER PROTOCOL ISAEL Administration
Protocol
Per Protocol
Phenylephrine HCl 50 mg in 250 mls @ 0 mls/hr 08/27/24 21:52
Luis-Synephrine IV
PER PROTOCOL ISAEL
Protocol
Per Protocol
Propofol 1,000,000 mcg in 100 mls @ 0 mls/hr 08/27/24 21:52
Diprivan IV
PER PROTOCOL ISAEL
Protocol
Per Protocol
Vecuronium [place] 60 mg/ 250 mls @ 0 mls/hr 08/27/24 21:52
Sodium Chloride IV
PER PROTOCOL ISAEL
Protocol
Per Protocol
Piperacillin Sod/Tazobactam Sod 3.375 gram in 50 mls @ 100 mls/hr 08/27/24 22:00 08/28/24 10:02
Zosyn IV 50 mls
Q6H ISAEL Administration
Vancomycin HCl 1,500 mg/ 530 mls @ 353.333 mls/hr 08/28/24 06:00 08/28/24 05:09
Sodium Chloride IV 530 mls
Q12H ISAEL Administration
Protocol
Sodium Chloride 1,000 mls @ 100 mls/hr 08/27/24 23:00 08/28/24 07:48
Nss IV 1,000 mls
.Q10H ISAEL Administration
Insulin Human Regular 100 units in 100 mls @ 0 mls/hr 08/28/24 06:00
Novolin R Insulin Infusion IV
PER PROTOCOL ISAEL
Protocol
Per Protocol
Ferric Sodium Gluconate 110 mls @ 110 mls/hr 08/28/24 14:00
Complex 125 mg/ Sodium IV 08/28/24 14:59
Chloride ONCE@1400 ONE
Potassium Chloride 20 meq/ 160 mls @ 80 mls/hr 08/28/24 09:39
Sodium Chloride IV 08/28/24 11:38
NOW STA
Insulin Aspart 0 units 08/28/24 07:30 08/28/24 07:55
Insulin Aspart (Novolog) 100 Units/Ml 3 Ml Flexpen SC 09/25/24 07:29 Not Given
AC ISAEL
Protocol
Pantoprazole Sodium 40 mg 08/28/24 08:00 08/28/24 07:56
Pantoprazole Sodium 40 Mg/10 Ml Vial IV 09/25/24 07:59 40 mg
DAILY ISAEL Administration
Sodium Chloride 0 flush 08/27/24 22:00
Sodium Chloride 0.9% (Flush) Syringe IV 09/24/24 21:59
PER PROTOCOL ISAEL
Sodium Chloride 10 ml 08/28/24 08:00 08/28/24 07:56
Sodium Chloride 0.9% (Preservative Free) 10 Ml Vial IV 09/25/24 07:59 10 ml
DAILY ISAEL Administration
Vecuronium [place] 10 mg 08/27/24 21:52
Vecuronium [place] (1 Mg/Ml) 10 Mg/10 Ml 0.1 mg/kg (10 mg) 08/30/24 21:52
IV
Q1HPRN PRN
BSAS >/= 1
Protocol
Home Medications
�Medication �Instructions �Recorded
docusate sodium 100 mg capsule 100 mg PO DAILYPRN PRN constipation 03/20/18
roflumilast 500 mcg tablet 500 mcg PO DAILY Lung/breathing 04/06/19
(Daliresp) issues
rosuvastatin 20 mg tablet 20 mg PO DAILY High cholesterol 03/06/21
rivaroxaban 20 mg tablet (Xarelto) 20 mg PO QPM #30 tabs 03/12/21
fluticasone fur. 200 mcg-umeclid 1 inh inhalation R DAILY 10/10/23
62.5 mcg-vilant 25 mcg Lung/Breathing Issues
inhalat.powder (Trelegy Ellipta)
ipratropium 0.5 mg-albuterol 3 mg 3 ml inhalation R Q6HPRN PRN sob 10/10/23
(2.5 mg base)/3 mL nebulization
soln
propranolol 80 mg capsule,24 80 mg PO DAILY Blood Pressure 10/10/23
hr,extended release
tadalafil 5 mg tablet 5 mg PO DAILY prostate 10/10/23
albuterol sulfate 90 mcg/actuation 1 - 2 puff inhalation R Q4HPRN PRN 08/27/24
aerosol inhaler (Ventolin HFA) sob
ascorbic acid (vitamin C) 1,000 mg 1,000 mg PO BID 08/27/24
tablet (Vitamin C)
azithromycin 500 mg tablet 500 mg PO DAILY 08/27/24
cholecalciferol (vitamin D3) 50 50 mcg PO DAILY 08/27/24
mcg (2,000 unit) tablet
lansoprazole 30 mg capsule,delayed 30 mg PO DAILY 08/27/24
release
prednisone 10 mg tablet 10 mg PO .TAPER 08/27/24
--- NOTE | 2024-08-28 10:56 | W.RAPID.EEG ---
Rapid EEG
-
Procedure Date: 08/27/24
Results:
Point of Care EEG Procedure Note
Patient name: ALBANIA COLLINS
Medical ID: [id number]
Date of : 1960
Age: 63
IMPRESSIONS:
Absence of status epilepticus
Recording 1 Duration: 2024-08-27 22:35:20 - 2024-08-28 02:34:08Recording 2 Duration: 2024-08-28 02:49:06 - 2024-08-28 03:56:10
Recording Total Time: 05:05:53 (306 minutes)
Ordering Physician: KB
Recording Technique: This EEG was obtained using a 10 lead, 8 channel circumferential rapid EEG with no parasagittal coverage.
Performed with [employer], [employer]ibell Status Epilepticus Monitor, ICD-10 BF18C46
Clinical History: ALBANIA COLLINS is a 63 year old Cardiac Arrest patient undergoing EEG to screen for non-convulsive status epilepticus.
Primary Indication: Cardiac Arrest
Location: ICU/MICU
Report prepared by: Wily Goldberg
Report generated on: Aug 28, 2024 10:56 AM [facility]-4
[2024-08-28] MEDS: KCL 160 MEQ IV (11:04)
--- NOTE | 2024-08-28 11:50 | PHA.VAN.FU ---
Vancomycin Assessment / Plan
- Assessment
Renal Function: SCR Increasing
WBC's are: Trending Down
In the past 24 hrs, patient has been: Afebrile
Concomitant Antimicrobials: Piperacillin/Tazobactam
- Dosing Plan
Adjust Regimen to: Dose by level
Dosing Comments: Patient's SrCr significantly elevated.
- Monitoring Plan
Random Level: Ordered for 08/29 @0600
- Follow Up
Pharmacy will continue to follow.
Vancomycin Follow UP
- -
Patient Age: 63
Patient Sex: Male
Vancomycin Day #: 2
Indication: Pulmonary/Respiratory
Requesting Provider: Dr. Zach MILLER
Pertinent Antimicrobial Allergies:
Bacitracin, neomycin, polmyxin
Height / Weight:
Height 5 ft 10 in
Actual Weight 111.312 kg
Pertinent Past Medical History: COPD, OR
- Vital Signs / Lab Results
Temp Pulse Resp BP Pulse Ox
97.5 F 47 20 108/52 99
08/28/24 11:12 08/28/24 11:30 08/28/24 11:30 08/28/24 11:30 08/28/24 11:30
Lab Results - Hematology
08/27/24 08/28/24 08/28/24
18:49 01:00 01:28
WBC 21.6 H Cancelled 23.5 H
Band Neutrophils 0
08/28/24
05:48
WBC 19.5 H
Band Neutrophils
Lab Results - Chemistry
08/27/24 08/28/24 08/28/24
18:49 01:28 05:48
BUN 11 20 21 H
Creatinine 0.8 1.3 1.4 H
Estimated Creat Clear 112 69 67
Albumin 4.5 3.4 L 3.1 L
08/27/24 08/27/24 08/28/24
18:59 21:52 01:28
Lactic Acid 8.5 H* Cancelled 1.9
08/28/24 08/28/24
03:52 08:58
Lactic Acid Cancelled 2.1 H
Microbiology Results
08/28/24 08:49 Nasal Screen MRSA (PCR) - Final
Nose MRSA not detected - performed by PCR methodology.
08/28/24 06:07 Influenza Types A & B ([facility]) - Final
Nasal Swab Negative for Influenza A & B, NAAT
Negative results must be combined with clinical observations
and patient history.
Nucleic Acid Amplification test (NAAT)performed on the
[employer] platform.
[2024-08-28] MEDS: NOVOLOG FLEXPEN-MODERATE RESISTANCE 1 UNITS SC ×2 (12:08→18:33)
[2024-08-28] MEDS: DIPRIVAN 100 IV ×2 (12:08→18:29)
[2024-08-28 12:19] LABS: Glucose - Point of Care 185 mg/dl (70-99)
[2024-08-28 12:19] LABS: Hematocrit 39.7 % (39.0-52.0); Hemoglobin 12.8 g/dL (13.0-18.0); Mean Corp Hgb Conc. 32.2 g/dL (33.0-37.0); Mean Corpuscular Volume 79.1 fL (80.0-94.0); Nucleated Red Blood Cells % 0 % (-); Platelet Count 99 10^3/uL (130-400); Red Cell Dist. Width 16.8 % (11.5-14.5)
--- NOTE | 2024-08-28 12:20 | PTCARENOTE ---
pt remains with cough and gag, eyes deviating upwards and shivering upon propofol being lowered, Dr. Goldberg and Dr. Mata aware, propofol on 15mcg fentanyl remains at 25mcg. pt turned and repositioned, oral care provided. ttm continues. labs sent
per order. assessment unchanged further.
[2024-08-28 12:38] LABS: ALT (SGPT) 46 U/L (0-50); AST (SGOT) 68 U/L (17-59); Albumin 3.2 g/dl (3.5-5.0); Alkaline Phosphatase 61 U/L (38-126); Blood Urea Nitrogen 23 mg/dl (9-20); Calcium 7.8 mg/dl (8.4-10.2); Carbon Dioxide 22 mmol/L (22-30); Chloride 110 mmol/L (98-107); Estimated Creatinine Clearance 62 ml/min; Glucose 194 mg/dl (70-99); Magnesium 1.9 mg/dl (1.6-2.3); Potassium 3.9 mmol/L (3.5-5.1); Sodium 137 mmol/L (135-145); Total Protein 5.7 g/dl (6.3-8.2); eGFR 51.67
[2024-08-28 13:07] LABS: CKMB 7.8 ng/ml (0.0-3.4)
--- NOTE | 2024-08-28 13:24 | CM ---
Patient intubated. Initial assessment completed with 2 sons. Patient lives with his in a 1 story condo with no basement, 1 step to enter the home. 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
upon exertion. Patient does drive. Patient does have a W/CH, RW, SPC and CPAP which he does not use. No in-home services. No service. PCP is unknown. Unknown if there is a HC-POA. Pharmacy is [facility]. Discharge POC: TBD with
medical progression.
[2024-08-28] MEDS: FERRLECIT 110 MG IV (13:34)
--- NOTE | 2024-08-28 13:46 | CM ---
Patient intubated. Initial assessment completed with son. Patient lives with his in a 1 story condo with no basement, 1 step to enter the home. 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
upon exertion. Patient does drive. Patient does have a W/CH, RW, SPC and CPAP which he does not use. No in-home services. No service. PCP is unknown. Unknown if there is a HC-POA. Pharmacy is [facility]. Discharge POC: TBD with
medical progression.
[2024-08-28 14:32] LABS: Glucose - Point of Care 101 mg/dl (70-99)
--- NOTE | 2024-08-28 14:39 | PTCARENOTE ---
Dr. Mata remains aware of rass of -5, ordered to continue prop and fent at current rates
[2024-08-28] MEDS: LOVENOX 40 MG SC (16:26)
--- NOTE | 2024-08-28 16:37 | PTCARENOTE ---
assessment unchanged. pt continues on levo, fent, and propofol.
[2024-08-28 18:20] LABS: Glucose - Point of Care 176 mg/dl (70-99)
[2024-08-28 18:23] LABS: Hematocrit 39.1 % (39.0-52.0); Hemoglobin 12.6 g/dL (13.0-18.0); Mean Corp Hgb Conc. 32.2 g/dL (33.0-37.0); Mean Corpuscular Volume 78.5 fL (80.0-94.0); Nucleated Red Blood Cells % 0 % (-); Platelet Count 105 10^3/uL (130-400); Red Cell Dist. Width 17.0 % (11.5-14.5)
[2024-08-28 18:31] LABS: ALT (SGPT) 43 U/L (0-50); AST (SGOT) 60 U/L (17-59); Albumin 3.0 g/dl (3.5-5.0); Alkaline Phosphatase 57 U/L (38-126); Blood Urea Nitrogen 25 mg/dl (9-20); Calcium 7.5 mg/dl (8.4-10.2); Carbon Dioxide 20 mmol/L (22-30); Chloride 112 mmol/L (98-107); Estimated Creatinine Clearance 62 ml/min; Glucose 174 mg/dl (70-99); Magnesium 1.9 mg/dl (1.6-2.3); Potassium 3.8 mmol/L (3.5-5.1); Sodium 137 mmol/L (135-145); Total Protein 5.3 g/dl (6.3-8.2); eGFR 51.67
[2024-08-28 18:43] LABS: Glucose - Point of Care 164 mg/dl (70-99)
[2024-08-28 18:59] LABS: CKMB 7.4 ng/ml (0.0-3.4)
--- NOTE | 2024-08-28 20:00 | PTCARENOTE ---
GCS 5T, movement 1/5 PERRLA 3 brisk. Fent/Prop titrated to clinical endpoint. Cooling maintained. SB on monitor. Levophed for MAP goal 65. Pulses palpable, no edema. #7.5 ett 26cm at the lip. Vent settings as ordered. Very difficult to auscultate
breath sounds anteriorly. RT at bedside and agrees. STAT chest xray to confirm tube placement and evaluate lungs. NGT to LIWS, flushed as per order. Abdomen obese/round/distended with hernia midline. Flatus, no BM. Saab draining clear yellow urine.
Will monitor.
[2024-08-28] MEDS: DECADRON 4 MG IV (20:23)
[2024-08-28] MEDS: SUBLIMAZE 50 MCG IV (20:25)
[2024-08-29] VITALS (26 sets, daily range): BP systolic 87–137; BP diastolic 44–72; BMI 34.9
[2024-08-29 00:30] LABS: Glucose - Point of Care 170 mg/dl (70-99)
[2024-08-29 00:31] LABS: B.E. -6.1 mmol/L; HCO3 20.2 mmol/L (21-28); O2 Saturation % 99.3 % (94-98); PCO2 42 mmHg (35-48); PO2 112 mmHg (83-108)
[2024-08-29] MEDS: NOVOLOG FLEXPEN-MODERATE RESISTANCE 170 UNITS SC (00:35)
[2024-08-29] MEDS: LR 1000 IV ×2 (00:36→18:07)
[2024-08-29 00:42] LABS: Hematocrit 38.0 % (39.0-52.0); Hemoglobin 11.9 g/dL (13.0-18.0); Mean Corp Hgb Conc. 31.3 g/dL (33.0-37.0); Mean Corpuscular Volume 79.2 fL (80.0-94.0); Nucleated Red Blood Cells % 0 % (-); Platelet Count 100 10^3/uL (130-400); Red Cell Dist. Width 17.1 % (11.5-14.5)
[2024-08-29 00:58] LABS: ALT (SGPT) 44 U/L (0-50); AST (SGOT) 58 U/L (17-59); Albumin 3.0 g/dl (3.5-5.0); Alkaline Phosphatase 60 U/L (38-126); Blood Urea Nitrogen 29 mg/dl (9-20); Calcium 7.8 mg/dl (8.4-10.2); Carbon Dioxide 21 mmol/L (22-30); Chloride 110 mmol/L (98-107); Estimated Creatinine Clearance 58 ml/min; Glucose 168 mg/dl (70-99); Magnesium 2.0 mg/dl (1.6-2.3); Potassium 4.3 mmol/L (3.5-5.1); Sodium 135 mmol/L (135-145); Total Protein 5.3 g/dl (6.3-8.2); eGFR 47.82
[2024-08-29 01:09] LABS: Troponin I 0.396 ng/ml
--- NOTE | 2024-08-29 01:10 | PTCARENOTE ---
At goal temp for 24 hours, 0110 rewarming initiated via protocol. No change in previous assessment. Son at bedside and updated on plan of care. Will monitor.
[2024-08-29 01:22] LABS: CKMB 7.1 ng/ml (0.0-3.4)
[2024-08-29] MEDS: LEVOPHED 250 IV ×3 (02:17→23:40)
[2024-08-29] MEDS: DIPRIVAN 100 IV ×4 (02:17→18:15)
[2024-08-29] MEDS: TYLENOL ORAL SOLUTION 650 MG TUBE ×4 (05:00→22:00)
[2024-08-29] MEDS: ZOSYN 50 IV ×4 (05:00→22:00)
[2024-08-29 05:15] LABS: Glucose - Point of Care 125 mg/dl (70-99)
[2024-08-29 05:16] LABS: Hematocrit 38.8 % (39.0-52.0); Hemoglobin 12.4 g/dL (13.0-18.0); Mean Corp Hgb Conc. 32.0 g/dL (33.0-37.0); Mean Corpuscular Volume 79.2 fL (80.0-94.0); Platelet Count 128 10^3/uL (130-400); Red Cell Dist. Width 17.2 % (11.5-14.5)
[2024-08-29 05:21] LABS: INR 1.43; PT 17.7 Sec (11.4-14.6)
[2024-08-29 05:22] LABS: APTT 44.9 Sec (23.4-35.0)
[2024-08-29 05:36] LABS: ALT (SGPT) 46 U/L (0-50); AST (SGOT) 60 U/L (17-59); Albumin 3.2 g/dl (3.5-5.0); Alkaline Phosphatase 53 U/L (38-126); Blood Urea Nitrogen 30 mg/dl (9-20); Calcium 7.9 mg/dl (8.4-10.2); Carbon Dioxide 23 mmol/L (22-30); Chloride 112 mmol/L (98-107); Estimated Creatinine Clearance 58 ml/min; Glucose 158 mg/dl (70-99); Magnesium 2.1 mg/dl (1.6-2.3); Potassium 4.4 mmol/L (3.5-5.1); Sodium 138 mmol/L (135-145); Total Protein 5.9 g/dl (6.3-8.2); eGFR 47.82
[2024-08-29 05:40] LABS: Prealbumin (Transthyretin) 10.3 mg/dl (17.6-36.0)
[2024-08-29] MEDS: NOVOLOG FLEXPEN-MODERATE RESISTANCE SC (05:56)
[2024-08-29 06:10] LABS: CKMB 5.7 ng/ml (0.0-3.4)
[2024-08-29 06:21] LABS: Nucleated Red Blood Cells % 0 % (-)
--- NOTE | 2024-08-29 06:48 | W.PN.INTV ---
Today's Communication / Plan
Recommendations
Increase steroids to 3 times daily
Maintain sedation,
PM chest x-ray confirm stability of left pneumothorax noted on imaging
Wean pressors
Start tube feeds. Fluid boluses as able
Restart Xarelto, dosed for renal dysfunction
Assessment
-
63 yo M PMH of atrial fibrillation, HTN, COPD, Parkinson's disease s/p at-home cardiac arrest, status post TTM to 96 degrees
S/p Cardiorespiratory arrest
CPR in the field, epinephrine x 2
ROSC in the field, intubated
Spontaneous movements. ED records
VDRF, intubated in the field 08/27
S/p TTM protocol, target temperature 96 degrees, completed 08/29
Small left basilar pneumothorax per imaging, my review
Recent acute COPD exacerbation preadmission treated with steroids
Conditions present prior to admission
Severe COPD/emphysema
On home oxygen
Hypertension/hyperlipidemia
Atrial fibrillation
Parkinson's disease
Cirrhosis per imaging
Obstructive sleep apnea on CPAP
History of umbilical hernia repair
Alcohol use
Significant smoking history, quit
Plan/recommendations
At this time, patient remains critically ill
Did not tolerate sedation vacation today this a.m. upon achieving rewarming
Agonal breathing, increased airway pressures to 40, sedation resumed
Moving forward
Continue with volume-cycled ventilation
AC 18/500/5/40%
Ppk 35, Pplat 15
Follow airway pressures regularly, avoid air trapping
Patient at risk for worsening left basilar pneumothorax
Repeat chest x-ray this p.m.
Interventional radiology aware. Small pneumothorax, although CT-guided chest tube may be possible, would be difficult even with fluoroscopy
Follow closely
Chest tube with any worsening of the PTX
Neurology following
Patient does spontaneously breathing with sedation vacation
Remains on pressors, wean as able
Echocardiogram 08/28 EF 55%, normal RV size and function, PA pressures cannot be determined
Continue with steroids, changed to 3 times daily
Continue with antibiotics
CT with questionable pneumonia
Continue Zosyn
Off vancomycin
Imaging confirms hepatic cirrhosis
GI prophylaxis continues, prompt (all
Remains on LR, KVO
Will start tube feeds
Fluid boluses to minimize and wean pressors as able
Patient with history of atrial fibrillation
Will resume Xarelto via NG tube
Dose appropriate for renal function, creatinine 1.6
Follow-up blood sugars
Reviewed at length with critical care nursing, respiratory care
Updated son at length at bedside
Reviewed risks
TCCT 40 min
Subjective Dataa
Subjective Data
Date of Service:
Date of Service: August 29, 2024
Subjective:
Patient remains critically ill. Witnessed during sedation vacation this morning, agonal breathing, not following commands, increased airway pressures. Patient was immediately restarted on propofol and fentanyl. Son at bedside. Warming phase
complete. Marginal blood pressure noted on norepinephrine. Remains sedated with fentanyl/propofol
Objective Data
Data Reviewed
Vital Signs / I&O / Oxygen:
Vital Signs
Temp Pulse Resp BP Pulse Ox
97.8 F 63 20 137/72 99
08/29/24 06:05 08/29/24 06:00 08/29/24 06:00 08/29/24 05:30 08/29/24 06:00
Intake and Output
08/27/24 08/28/24 08/29/24
06:59 06:59 06:59
Intake Total 1221.6 / 1379.7 3417.8 / 3417.8
Output Total 860 / 890 2069 / 2069
Balance 361.6 / 489.7 1347.8 / 1347.8
SaO2 [A/C] 99
SaO2 99
Physical Exam
General: Comfortable and Other (Left upper extremity A-line, femoral line)
HEENT: Normocephalic and Anicteric
Cardiovascular: S1-S2, Regular Rhythm, Murmur (n) and Rub (n)
Respiratory: Wheeze (Scattered diffuse), Crackles (n), Rhonchi (n), Accessory Resp Muscle Use (Yes during sedation vacation), Stridor (n), Crepitus (n) and ET Tube
GI: Soft and Non Distended (Obese)
Neurology: Lethargic (Sedated, but also remains unresponsive during sedation vacation, spontaneously breathing)
Skin: Cyanosis (n), Jaundice (n), Rash (n) and Other (Type II)
Labs/Micro/Reports
Laboratory Results
08/28/24 08/29/24 08/29/24
08:58 00:14 04:55
PT 17.7 H
INR 1.43
APTT 44.9 H
pH 7.41 7.29 L
pCO2 32 L 42
pO2 172 H 112 H
HCO3 20.3 L 20.2 L
O2 Delivery Level
Microbiology
08/27/24 19:08 Blood/Venous Blood Culture - Preliminary
No Growth in 24 hours- Final report to follow
08/27/24 19:08 Blood/Venous Blood Culture - Preliminary
No Growth in 24 hours- Final report to follow
08/28/24 08:49 Nose Nasal Screen MRSA (PCR) - Final
MRSA not detected - performed by PCR methodology.
08/28/24 06:07 Nasal Swab Influenza Types A & B ([facility]) - Final
Negative for Influenza A & B, NAAT
Negative results must be combined with clinical observations
and patient history.
Nucleic Acid Amplification test (NAAT)performed on the
[employer] platform.
[2024-08-29] MEDS: REFRESH CELLUVISC GEL 1 DROPS BOTH EYES ×2 (07:23→19:43)
[2024-08-29] MEDS: DECADRON 4 MG IV ×2 (07:23→16:55)
[2024-08-29] MEDS: NSS (PRESERVATIVE FREE) 10 ML IV (07:23)
[2024-08-29] MEDS: BUSPAR 30 MG TUBE ×2 (07:23→16:54)
[2024-08-29] MEDS: PROTONIX IV 40 MG IV (07:23)
[2024-08-29] MEDS: DUONEB 3 ML INH ×4 (07:30→20:43)
--- NOTE | 2024-08-29 07:38 | W.PN.NEURO.1 ---
Today's Communication / Plan
-
.
Subjective/Objective
Subjective Data
Date of Service: August 29, 2024
Neurology follow-up note
HPI: This is a 63-year-old man who presented to [facility] on 08/27/2024 with [id number] witnessed pulseless cardiac arrest.
24-hour events: intermittently hypotensive down to 87/46, off hypothermia protocol. Did not tolerate weaning off sedation earlier today.
MAR: Fentanyl 50 mcg given on 08/28/2024 at 20: 25
PDMP:none
Labs: WBC/28.4, platelets�128, glucose�158, bilirubin�point 0.6, magnesium�2.1, CK�203,
LDL�22, normal TSH,
CT head wo contrast (08/27/2024)�Mild bilateral parietal lobe volume loss, low-lying cerebellar tonsils (or Chiari I malformation).
According to patient's son Mr. Murrieta had stopped taking his Parkinson's medication months ago, reporting no noticeable difference when on or off the medication.
PMH: ET/PD, PA A-fib, centrilobular emphysema, history of GI bleed, MASH, GERD, Fe, Vit D deficiency, EVE, BMI 34, chronic thrombocytopenia
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
FH: Noncontributory to current presentation.
All: Neosporin, doxycycline, linaclotide
ROS: Unable due to encephalopathy
General: Well developed. In no acute distress.
Cardio: Regular rate and rhythm without murmur. Extremities are without cyanosis or edema.
Neuro:
General: Sedated, intubated
Cardio: Regular rate
Mental Status: Comatose
Cranial Nerves: Mild bilateral esotropia. Pupils are 2.5 mm, nonreactive. Negative oculocephalics, corneals, gag.
Motor: Flaccid quadriplegia
Reflexes: 2+ upper extremities and patellar's; no clonus at the ankles
Sensory: Unable to assess
Coordination: No tremors myoclonic movements
Gait: unable
Assessment and Plan:
I. Multifactorial encephalopathy (hypoxic, toxic, vascular)
II. IPD
III. History of RLS
IV. PA A-Fib
V. Mild chronic thrombocytopenia
-Seizure precautions
- Continuing Xarelto for stroke prophylaxis
- Obtain CT head without geraldine if brain MRI is not feasible.
- Will reexamine off sedation tomorrow to
I personally reviewed all radiology and labs along with past medical records pertinent to current medical problems. Total time spent in patient care is 60 minutes.
Thank you for allowing us to participate in the care of this patient. We will continue to follow. Please do not hesitate to contact us with any questions or concerns.
Objective Data
Vital Signs
Temp Pulse Resp BP Pulse Ox
36.4 C 59 20 110/53 99
08/29/24 07:00 08/29/24 06:45 08/29/24 06:45 08/29/24 06:15 08/29/24 07:22
PT 17.7 Sec (11.4-14.6) H 08/29/24 04:55
INR 1.43 08/29/24 04:55
APTT 44.9 Sec (23.4-35.0) H 08/29/24 04:55
Sodium 138 mmol/L (135-145) 08/29/24 04:55
Potassium 4.4 mmol/L (3.5-5.1) 08/29/24 04:55
BUN 30 mg/dl (9-20) H 08/29/24 04:55
Glucose 158 mg/dl (70-99) H 08/29/24 04:55
Calcium 7.9 mg/dl (8.4-10.2) L 08/29/24 04:55
Phosphorus 4.6 mg/dl (2.5-4.5) H 08/29/24 04:55
Rem-Y-Vmutqwxmitq Pept 249 pg/ml 08/29/24 04:55
LDL Cholesterol, Calc 22 mg/dl 08/28/24 05:48
Patient Allergies
bacitracin (From Neosporin ([id number])) Allergy (Verified 12/20/21 13:48)
Rash
neomycin (From Neosporin ([id number])) Allergy (Verified 12/20/21 13:48)
Rash
polymyxin B (From Neosporin ([id number]-pqz-mrhjn)) Allergy (Verified 12/20/21 13:48)
Rash
Vital Signs and Labs
-
Vital Signs and Labs:
Vital Signs
Temp Pulse Resp BP Pulse Ox
36.5 C 56 20 110/53 99
08/29/24 07:10 08/29/24 07:39 08/29/24 07:39 08/29/24 06:15 08/29/24 07:39
Lab Results
08/29/24 21:00
08/29/24 21:00
PT 17.7 Sec (11.4-14.6) H 08/29/24 04:55
INR 1.43 08/29/24 04:55
APTT 44.9 Sec (23.4-35.0) H 08/29/24 04:55
Sodium Cancelled 08/29/24 21:00
Potassium Cancelled 08/29/24 21:00
BUN Cancelled 08/29/24 21:00
Glucose Cancelled 08/29/24 21:00
Calcium Cancelled 08/29/24 21:00
Phosphorus Cancelled 08/29/24 21:00
Yqz-S-Ficpoyworjp Pept 249 pg/ml 08/29/24 04:55
LDL Cholesterol, Calc 22 mg/dl 08/28/24 05:48
Medications
-
Medications:
Generic Name Dose Route Start Last Admin
Trade Name Freq PRN Reason Stop Dose Admin
Acetaminophen 650 mg 08/28/24 04:00 08/29/24 05:00
Acetaminophen (Oral Solution) 650 Mg/20.3 Ml Cup TUBE 09/25/24 03:59 650 mg
Q6H ISAEL Administration
Acetaminophen 650 mg 08/27/24 21:52
Acetaminophen 650 Mg Rectal Suppository RECTAL 08/31/24 21:51
Q6HPRN PRN
if cannot be given via tube
Albuterol Sulfate 2.5 mg 08/27/24 21:52
Albuterol Nebs 2.5 Mg/3 Ml Ampul INH
R Q4HPRN PRN
SOB
Protocol
Albuterol/Ipratropium 3 ml 08/28/24 08:00 08/29/24 07:30
Ipratropium 0.5/Albuterol 3 Mg (3 Ml Ampul) INH 3 ml
R QID ISAEL Administration
Protocol
Buspirone HCl 30 mg 08/28/24 08:00 08/29/24 07:23
Buspirone 15 Mg Tablet TUBE 09/25/24 07:59 30 mg
Q8 ISAEL Administration
Carboxymethylcellulose Sodium 1 drops 08/28/24 08:00 08/29/24 07:23
Carboxymethylcellulose Ophth Gel (Celluvisc) Droperette BOTH EYES 09/25/24 07:59 1 drops
BID ISAEL Administration
Dexamethasone Sodium Phosphate 4 mg 08/28/24 20:00 08/29/24 07:23
Dexamethasone 4 Mg/Ml 1 Ml Vial IV 09/25/24 19:59 4 mg
Q12 ISAEL Administration
Dextrose 12.5 grams 08/28/24 11:00
Dextrose 50% (0.5 Grams/Ml) 50 Ml Syringe IV 09/25/24 10:59
[id number] PRN
hypoglycemia
Protocol
Enoxaparin Sodium 40 mg 08/28/24 18:00 08/28/24 16:26
Enoxaparin Sodium 40 Mg/0.4 Ml Syringe SC 09/25/24 17:59 40 mg
QPM ISAEL Administration
Fentanyl Citrate 50 mcg 08/28/24 11:00 08/28/24 20:25
Fentanyl (50 Mcg/Ml) 100 Mcg/2 Ml Ampul IV 09/11/24 10:59 50 mcg
[id number] PRN Administration
see protocol
Protocol
Glucagon 1 mg 08/28/24 11:00
Glucagon 1 Mg Vial IM 09/25/24 10:59
PRN PRN
hypoglycemia - no IV access
Protocol
Fentanyl Citrate 1,000 mcg in 100 mls @ 0 mls/hr 08/27/24 21:52 08/28/24 20:20
Sublimaze IV 100 mls
PER PROTOCOL ISAEL Administration
Protocol
Per Protocol
Norepinephrine Bitartrate 4 mg in 250 mls @ 0 mls/hr 08/27/24 21:52 08/29/24 02:17
Levophed IV 250 mls
PER PROTOCOL ISAEL Administration
Protocol
Per Protocol
Phenylephrine HCl 50 mg in 250 mls @ 0 mls/hr 08/27/24 21:52
Luis-Synephrine IV
PER PROTOCOL ISAEL
Protocol
Per Protocol
Propofol 1,000,000 mcg in 100 mls @ 0 mls/hr 08/27/24 21:52 08/29/24 02:17
Diprivan IV 100 mls
PER PROTOCOL ISAEL Administration
Protocol
Per Protocol
Piperacillin Sod/Tazobactam Sod 3.375 gram in 50 mls @ 100 mls/hr 08/27/24 22:00 08/29/24 05:00
Zosyn IV 50 mls
Q6H ISAEL Administration
Lactated Ringer's 1,000 mls @ 50 mls/hr 08/29/24 01:00 08/29/24 00:36
Lr IV 1,000 mls
.Q20H ISAEL Administration
Insulin Aspart 0 units 08/28/24 12:00 08/29/24 05:56
Insulin Aspart Moderate Resistance 300 Units/3 Ml Pen.Injctr SC 09/25/24 11:59 Not Given
Q6 ISAEL
Protocol
Pantoprazole Sodium 40 mg 08/28/24 08:00 08/29/24 07:23
Pantoprazole Sodium 40 Mg/10 Ml Vial IV 09/25/24 07:59 40 mg
DAILY ISAEL Administration
Sodium Chloride 0 flush 08/27/24 22:00
Sodium Chloride 0.9% (Flush) Syringe IV 09/24/24 21:59
PER PROTOCOL ISAEL
Sodium Chloride 10 ml 08/28/24 08:00 08/29/24 07:23
Sodium Chloride 0.9% (Preservative Free) 10 Ml Vial IV 09/25/24 07:59 10 ml
DAILY ISAEL Administration
Home Medications
-
Home Medications
docusate sodium 100 mg capsule 100 mg PO DAILYPRN PRN constipation 03/20/18
roflumilast 500 mcg tablet (Daliresp) 500 mcg PO DAILY Lung/breathing issues 04/06/19
rosuvastatin 20 mg tablet 20 mg PO DAILY High cholesterol 03/06/21
fluticasone fur. 200 mcg-umeclid 62.5 mcg-vilant 25 mcg inhalat.powder (Trelegy Ellipta) 1 inh inhalation R DAILY Lung/Breathing Issues 10/10/23
ipratropium 0.5 mg-albuterol 3 mg (2.5 mg base)/3 mL nebulization soln 3 ml inhalation R Q6HPRN PRN sob 10/10/23
propranolol 80 mg capsule,24 hr,extended release 80 mg PO DAILY Blood Pressure 10/10/23
tadalafil 5 mg tablet 5 mg PO DAILY prostate 10/10/23
albuterol sulfate 90 mcg/actuation aerosol inhaler (Ventolin HFA) 1 - 2 puff inhalation R Q4HPRN PRN sob 08/27/24
ascorbic acid (vitamin C) 1,000 mg tablet (Vitamin C) 1,000 mg PO BID Supplement 08/27/24
azithromycin 500 mg tablet 500 mg PO DAILY Infection 08/27/24
cholecalciferol (vitamin D3) 50 mcg (2,000 unit) tablet 50 mcg PO DAILY Supplement 08/27/24
lansoprazole 30 mg capsule,delayed release 30 mg PO DAILY Gastrointestinal Issue 08/27/24
prednisone 10 mg tablet 10 mg PO .TAPER Anti-Inflammatory 08/27/24
rivaroxaban 20 mg tablet (Xarelto) 20 mg PO QPM Blood Clot Prevention/Tx 08/28/24
--- NOTE | 2024-08-29 07:41 | PTCARENOTE ---
pt received from previous rn- ett to vent- see settings as charted. sinus víctor with pvcs and bbb on monitor. levophed continues for map>65, left radial hilda zeroed and functioning. left femoral cvc flushes with good blood return. pt remains on
propofol and fentanyl, bites down on ett at times with oral care. remains with cough and gag, pupils equal and reactive. forbes draining yellow urine. ngt to low int. suction. remains on normothermia- see flowsheet. all safety precautions in place.
--- NOTE | 2024-08-29 08:27 | W.PN.HOSP.TC ---
Today's Communication/Plan
-
cont breathing trials vent mgmt sedation as per ICU
wean pressors as tolerated
cont abx, steroids, bronchodilators
monitor renal function
IVF support, tube feeds, Xarelto
Assessment / Plan
Assessment / Plan
Physical Exam
General: sedated intubated
HEENT: ETT in place. Neck supple without JVD. Pinpoint pupils b/l
Respiratory: clear to auscultation b/l
Cardiac: S1/S2, Sinus Scott; No Murmur
GI: Soft, Non Tender, Non Distended and Normal Bowel Sounds
Musculoskeletal: No Clubbing, No Cyanosis and No Edema
Neuro: sedated
Psych: Calm
63M with PMH significant for PA-Fib and COPD who presents to ED s/p cardiac arrest at home.
Cardiac Arrest
- Cont care as per ICU
- Applied Psychology Teacher eval appreciated
- TTM protocol / aggressive avoidance of fever.
- vent support as per ICU, cont pressor support as necessary
- Neurology consult appreciated
- Cardiology consult appreciated Suspect troponin of 0.417 (since trended down) non-ACS myocardial injury from hypoxemia, stable cardiac status, signed off
- Applied Psychology Teacher consult appreciated
- Tube feeds
CT Chest appreciated
-Severe bilateral upper lobe centrilobular emphysema
-Interval increase in size of a 2.2 cm irregular shaped nodular opacity in the right lung apex- progressive scarring vs right upper lobe lung cancer.
-possible ABRAHAM PNA
-Acute bilateral anterolateral rib fractures and acute nondisplaced sternal fracture consistent with recent cardiopulmonary resuscitation.
-small Lt Pneumothorax
- Moderate hepatic cirrhosis.
COPD with Acute Exacerbation
Possible PNA, recently hospitalized for suspected sepsis PNA
- Initial respiratory distress resulted in cardiac arrest as described by witnesses / EMS.
- IV steroids, nebs ATC.
- empiric zosyn, vanc discontinued w/ neg MRSA screen
- vent support as above.
Paroxysmal Atrial Fibrillation
- In A-Fib with RVR initially (s/p epi doses) - since converted to NSR.
- Monitor on telemetry for any recurrent arrhythmia / tachycardia.
- Cardiology evaluation.
- Xarelto resumed
Benign Hypertension
Shock
- cardiogenic (less likely) v septic shock (more likely)
- IVFs / pressor support/abx
- ECHO appreciated EF 55-60% no significant change from prior ECHO 09/2021
- Lactic acidosis trended down
Parkinson's Disease
- not on Parkinson medications
- per family, patient prescribed Sinemet but has not been taking.
Chronic Thrombocytopenia
- Monitor, stable
BPH
- Difficult Saab placement in the ED. Urology assistance appreciated
- Maintain Saab for critical care I/Os and temperature monitoring.
DVT Prophylaxis: Lovenox
Code Status: Full
Total Critical Care Time__40___ minutes. I was immediately available to the patient and staff. I personally examined, reviewed labs, diagnostic images/reports, interpretations, treatment plans, discussed patient care with other providers and
family (son same name Ashvin, daughter Christina, Shilpi), patient unable to make decisions at this time, entered orders as appropriate and documented medical record.
Anticipated Discharge: > 48 hours
Subjective/Interval History
-
Date of Service: August 29, 2024
Sedated intubated unfortunately failed SBT earlier in the morning.
Objective Data
-
Labs:
Laboratory Results
08/29/24 08/29/24 08/29/24
00:14 04:55 09:00
WBC 22.5 H 28.4 H Cancelled
Hgb 11.9 L 12.4 L Cancelled
Hct 38.0 L 38.8 L Cancelled
Plt Count 100 L 128 L D Cancelled
PT 17.7 H
INR 1.43
APTT 44.9 H
HCO3 20.2 L Cancelled
Sodium 135 138 Cancelled
Potassium 4.3 4.4 Cancelled
Chloride 110 H 112 H Cancelled
Carbon Dioxide 21 L 23 Cancelled
BUN 29 H 30 H Cancelled
Creatinine 1.6 H 1.6 H Cancelled
Glucose 168 H 158 H Cancelled
Calcium 7.8 L 7.9 L Cancelled
Total Bilirubin 1.7 H 1.6 H
AST 58 60 H
ALT 44 46
Alkaline Phosphatase 60 53
08/29/24 08/29/24 08/29/24
13:00 17:00 21:00
WBC Cancelled Cancelled Cancelled
Hgb Cancelled Cancelled Cancelled
Hct Cancelled Cancelled Cancelled
Plt Count Cancelled Cancelled Cancelled
PT
INR
APTT
HCO3 Cancelled
Sodium Cancelled Cancelled Cancelled
Potassium Cancelled Cancelled Cancelled
Chloride Cancelled Cancelled Cancelled
Carbon Dioxide Cancelled Cancelled Cancelled
BUN Cancelled Cancelled Cancelled
Creatinine Cancelled Cancelled Cancelled
Glucose Cancelled Cancelled Cancelled
Calcium Cancelled Cancelled Cancelled
Total Bilirubin
AST
ALT
Alkaline Phosphatase
Vital Signs:
Vital Signs
Temp Pulse Resp BP Pulse Ox
97.6 F 56 20 110/53 99
08/29/24 08:00 08/29/24 07:39 08/29/24 07:39 08/29/24 06:15 08/29/24 07:39
I&O
08/28/24 08/29/24 08/30/24
06:59 06:59 06:59
Intake Total 1221.6 / 1379.7 3417.8 / 3510.2 92.4 / 92.4
Output Total 860 / 890 2070 / 2130 60 / 60
Balance 361.6 / 489.7 1347.8 / 1380.2 32.4 / 32.4
[2024-08-29] MEDS: SUBLIMAZE 50 MCG IV (09:00)
--- NOTE | 2024-08-29 09:13 | PTCARENOTE ---
Addendum entered by Sarah So RN 08/29/24 09:15:
pt did not follow any commands.
Original Note:
attempted sedation vacation- propofol and fent off, Dr. Mata at bedside, pt belly breathing. per Dr. Mata continue sedation, fentanyl bolus given as per order. Propofol was titrated to 40mcg per md order. son at bedside and updated.
--- NOTE | 2024-08-29 09:15 | PTCARENOTE ---
attempted sedation vacation- propofol and fent off, Dr. Mata at bedside, pt did not follow any commands. pt belly breathing. per Dr. Mata continue sedation, fentanyl bolus given as per order. Propofol was titrated to 40mcg per md order. son
at bedside and updated. Dr. Mata aware of rass -5
--- NOTE | 2024-08-29 09:46 | W.PN.CARDCBS ---
Today's Communication / Plan
-
Stable cardiac status
Major issues are pulmonary and neurologic
Follow-up EKG without significant change
We will sign off, please call if problem
Impression / Plan
-
Primary Trimming Press Operator: Dr. Lazo
Assessment:
Shortness of breath
OOH cardiac arrest
Acute exacerbation of advanced COPD
VDRF
Acute hypotension, requiring pressors
KEISHA
Elevated troponin
Paroxysmal Afib and atrial tachycardia
Chronic Xarelto OAC
PVCs, bigeminy, and NSVT
cRBBB
Advanced COPD
Severe emphysema
Severe EVE
Chronic thrombocytopenia
HTN
Hyperlipidemia
History of GI bleed
Parkinson's disease
Former smoker
Echo 10/13/2021: EF 55 to 60%, mild concentric LVH, no regional wall motion abnormalities, mild MR, trace TR, PAP 34 to 36 mmHg
Echo 08/28/2024: EF 55-60%, normal RV and atria, aortic sclerosis, no MR, could not obtain pulmonary artery pressure
Plan:
He remains critically ill with probably significant anoxic encephalopathy and vent dependent respiratory failure.
However, his cardiac status is remarkably good. LV function is normal by echo. Troponin elevation was a non-PR myocardial injury. Follow-up EKG is stable.
He initially had some nonsustained VT, more recently has had brief runs of atrial tachycardia but these do not require specific treatment at present. He had been on propranolol as an outpatient, given COPD, probably best to avoid beta-blockers. If
atrial or ventricular arrhythmias become more problematic would suggest selective beta-israel at low-dose such as metoprolol.
Otherwise nothing further to add from a cardiac standpoint. Wean pressors as possible.
We will sign off, please call if questions.
Progress Note - Trimming Press Operator
Subjective
Date of Service: August 29, 2024:
63-year-old man admitted with presumed respiratory arrest and suspected anoxic encephalopathy. Family members called EMS for severe dyspnea. CPR initiated, with ACLS algorithms and asystole he received epinephrine and CPR with recovery of rhythm,
never received shock, had ROSC and now admitted with targeted temperature protocol. Known history of COPD.
PMH: COPD, paroxysmal A-fib, right bundle, hypertension, Parkinson's, PVCs and history of nonsustained VT, sleep apnea, ex-smoker, cirrhosis by CT scan
Medications: IV fentanyl, BuSpar, pantoprazole, DuoNebs, norepinephrine, phenylephrine, propofol, Zosyn, rivaroxaban, dexamethasone
106/48, pulse 70, respiratory 20, afebrile, weight is 110.2 kg, down 1.1 kg, admission weight was 103 kg, intake and output is +1.2 kg, still sedated, spontaneous respiration but failed when sedation lightened, diminished breath sounds, limited
exam regular rate and rhythm, not much edema, son at bedside
Chest x-ray today diffuse infiltrates
White count 28.4, hemoglobin 12.4, blood gas pending, CO2 23, BUN and creatinine 30 and 1.6, potassium 4.4, peak troponin 0.4, proBNP 249
Objective
Labs:
08/29/24 21:00
08/29/24 21:00
Labs
Hgb Cancelled 08/29/24 21:00
Hct Cancelled 08/29/24 21:00
Plt Count Cancelled 08/29/24 21:00
PT 17.7 Sec (11.4-14.6) H 08/29/24 04:55
INR 1.43 08/29/24 04:55
APTT 44.9 Sec (23.4-35.0) H 08/29/24 04:55
Sodium Cancelled 08/29/24 21:00
Potassium Cancelled 08/29/24 21:00
BUN Cancelled 08/29/24 21:00
Creatinine Cancelled 08/29/24 21:00
Glucose Cancelled 08/29/24 21:00
Troponins
07/12/1208/27/24 08/28/24
18:49 21:52 01:28
Troponin I 0.019 Cancelled 0.212 H* D
08/28/24 08/28/24 08/29/24
03:52 08:58 00:14
Troponin I Cancelled 0.417 H* D 0.396 H*
Vital Signs and I&O:
Vital Signs
Temp Pulse Resp BP Pulse Ox
36.5 C 70 20 106/48 99
08/29/24 09:00 08/29/24 09:00 08/29/24 09:00 08/29/24 08:00 08/29/24 09:18
Vital Signs
Temp Pulse Resp BP Pulse Ox
36.5 C 70 20 106/48 99
08/29/24 09:00 08/29/24 09:00 08/29/24 09:00 08/29/24 08:00 08/29/24 09:18
Intake & Output
08/27/24 08/28/24 08/29/24 08/30/24
07:59 07:59 07:59 07:59
Intake Total 1537.8 / 1537.8 3194.0 / 3286.4 184.8 / 184.8
Output Total 920 / 920 2070 / 2110 80 / 80
Balance 617.8 / 617.8 1124.0 / 1176.4 104.8 / 104.8
Physical Exam
Physical Exam
See above
[2024-08-29 10:08] LABS: B.E. -4.7 mmol/L; HCO3 21.1 mmol/L (21-28); O2 Saturation % 99.8 % (94-98); PCO2 41 mmHg (35-48); PO2 169 mmHg (83-108)
[2024-08-29 10:09] LABS: O2 Therapy 40%
[2024-08-29] MEDS: NOVOLOG FLEXPEN-MODERATE RESISTANCE 1 UNITS SC ×2 (11:21→17:05)
[2024-08-29 11:31] LABS: Glucose - Point of Care 152 mg/dl (70-99)
[2024-08-29 11:54] LABS: Ammonia 33 umol/L (9-30)
--- NOTE | 2024-08-29 12:08 | PTCARENOTE ---
pt assessment unchanged, family at bedside and remains updated. turned and repositioned.
[2024-08-29] MEDS: PITRESSIN 100 IV ×2 (14:34→19:45)
--- NOTE | 2024-08-29 14:38 | PTCARENOTE ---
pt with runs of tachycardia in the 120s, Dr. Mata aware, vasopressin started as per order in order to wean levophed per md.
[2024-08-29] MEDS: XARELTO 20 MG PO (16:55)
[2024-08-29 17:15] LABS: Glucose - Point of Care 157 mg/dl (70-99)
[2024-08-29] MEDS: SUBLIMAZE 100 IV (18:14)
--- NOTE | 2024-08-29 18:30 | PTCARENOTE ---
Allan KING aware of decreasing urine output. assessment unchanged further.
--- NOTE | 2024-08-29 21:00 | PTCARENOTE ---
Pt intubated and sedated, pupil 2/2 brisk, gag and cough intact. Sinus Scott on monitor goal is MAP >65. No edema. Pt continuous with TTM pads to maintain Normothermia. ET #7.5 tube moved to left side by respiratory. Vent settings 500/18/40%/5peep.
lungs diminished on auscultation. NGT 65cm Right nare with tube feeds currently infusing at 20ml/hr with 25ml/hr flush, Goal is 70ml/hr. Saab with dark yellow urine. SCds on. Q2hour turns as tolerated.
--- NOTE | 2024-08-29 23:46 | PTCARENOTE ---
Levo adjusted for MAP >65. Son at bedside.
[2024-08-30] VITALS (12 sets, daily range): BP systolic 122–145; BP diastolic 57–84; BMI 35.7
[2024-08-30] MEDS: NOVOLOG FLEXPEN-MODERATE RESISTANCE 1 UNITS SC ×3 (00:16→23:51)
[2024-08-30 00:26] LABS: Glucose - Point of Care 176 mg/dl (70-99)
[2024-08-30] MEDS: DIPRIVAN 100 IV ×5 (00:33→23:42)
[2024-08-30] MEDS: PITRESSIN 100 IV ×3 (03:04→17:58)
[2024-08-30] MEDS: TYLENOL ORAL SOLUTION 650 MG TUBE ×4 (04:15→21:18)
[2024-08-30] MEDS: ZOSYN 50 IV ×4 (04:15→21:18)
[2024-08-30 04:49] LABS: B.E. -3.6 mmol/L; HCO3 22.7 mmol/L (21-28); O2 Saturation % 99.4 % (94-98); PCO2 45 mmHg (35-48); PO2 107 mmHg (83-108)
[2024-08-30 05:09] LABS: Hematocrit 37.8 % (39.0-52.0); Hemoglobin 11.7 g/dL (13.0-18.0); INR 1.83; Mean Corp Hgb Conc. 31.0 g/dL (33.0-37.0); Mean Corpuscular Volume 80.8 fL (80.0-94.0); Nucleated Red Blood Cells % 0 % (-); PT 21.3 Sec (11.4-14.6); Platelet Count 93 10^3/uL (130-400); Red Cell Dist. Width 17.4 % (11.5-14.5)
[2024-08-30 05:10] LABS: APTT 41.7 Sec (23.4-35.0)
[2024-08-30 05:22] LABS: ALT (SGPT) 38 U/L (0-50); AST (SGOT) 42 U/L (17-59); Albumin 3.0 g/dl (3.5-5.0); Alkaline Phosphatase 52 U/L (38-126); Blood Urea Nitrogen 31 mg/dl (9-20); Calcium 8.2 mg/dl (8.4-10.2); Carbon Dioxide 19 mmol/L (22-30); Chloride 109 mmol/L (98-107); Estimated Creatinine Clearance 58 ml/min; Glucose 189 mg/dl (70-99); Magnesium 2.1 mg/dl (1.6-2.3); Potassium 4.8 mmol/L (3.5-5.1); Sodium 137 mmol/L (135-145); Total Protein 5.4 g/dl (6.3-8.2); Triglycerides 214 mg/dl (10-149); eGFR 47.82
[2024-08-30 05:25] LABS: Prealbumin (Transthyretin) 12.5 mg/dl (17.6-36.0)
[2024-08-30] MEDS: NOVOLOG FLEXPEN-MODERATE RESISTANCE 3 UNITS SC ×2 (06:12→17:58)
[2024-08-30] MEDS: DUONEB 3 ML INH ×4 (06:18→18:00)
[2024-08-30 06:22] LABS: Glucose - Point of Care 204 mg/dl (70-99)
--- NOTE | 2024-08-30 06:58 | W.PN.INTV ---
Today's Communication / Plan
Recommendations
Did not tolerate episode of agitation earlier this morning with dyssynchrony
Continue sedation
CT chest without evidence of left basilar pneumothorax
Await head CT imaging
Continue tube feeds
Follow hematuria
Wean pressors as able
Daily chest x-ray, daily ABG
Remains critically ill
Assessment
-
63 yo M PMH of atrial fibrillation, HTN, COPD, Parkinson's disease s/p at-home cardiac arrest, status post TTM to 96 degrees
S/p Cardiorespiratory arrest, 08/27
CPR in the field, epinephrine x 2
ROSC in the field, intubated
Spontaneous movements. ED records
VDRF, intubated in the field 08/27
S/p TTM protocol, target temperature 96 degrees, completed 08/29 in am
Small left basilar pneumothorax per imaging, my review
Resolved on CT chest 08/30
Recent acute COPD exacerbation preadmission treated with steroids
Hematuria
Urology required to place Saab catheter in ED
Acute renal insufficiency, creatinine 1.6
Thrombocytopenia
Leukocytosis
Conditions present prior to admission
Scattered nodular densities biapical predominant
Right upper lobe nodule increasing in size
Severe COPD/emphysema
On home oxygen
Hypertension/hyperlipidemia
Atrial fibrillation
Parkinson's disease
Cirrhosis per imaging
Obstructive sleep apnea on CPAP
History of umbilical hernia repair
Alcohol use
Significant smoking history, quit
Plan/recommendations
At this time, patient remains critically ill. Remains on norepinephrine
Plan was to pursue sedation vacation but patient became extremely agitated in preparation for transport for head CT
During this, airway pressures increased to 45, agonal breathing, dyssynchrony with the ventilator
Required increasing propofol and fentanyl bolus with improvement
On chest exam, continues to have significant wheezing
Hematuria noted, Saab catheter in place
Ammonia level increased, significance unclear
Moving forward
Continue with volume-cycled ventilation
AC 18/500/5/40%, flow rate 70 L/min
Ppk 26, Pplat 17
When sedated, airway pressures are adequate
Patient at risk for worsening left basilar pneumothorax based on rib fractures, sternal fracture, initial left basilar pneumothorax on admission imaging
Repeat CT chest today without any evidence of left basilar pneumothorax
Follow closely
Chest tube with any worsening of the PTX
No change with treatment for COPD exacerbation
Continue Decadron, DuoNebs
Will add Flovent
Continue Zosyn
Patient with poor lung disease upon reviewing outpatient records
Tracheal culture
Influenza negative. Check COVID
Check Legionella and streptococcal antigen
Neurology following
Patient does spontaneously breathing with sedation vacation
Unfortunately, continues with agitation, does not follow commands
Repeat imaging today obtained, results pending
Remains on pressors, wean as able
Norepinephrine, vasopressin
Echocardiogram 08/28 EF 55%, normal RV size and function, PA pressures cannot be determined
LR at 50 cc/h at this time
Of note, patient on propranolol as an outpatient
Cardiology was following, signed off 08/29
Imaging confirms hepatic cirrhosis
Elevated ammonia levels noted
Family states patient does not drink alcohol, diagnosed with BENDER
GI prophylaxis continues
NG tube in place 300 cc drainage
Creatinine 1.6, stable
Urine output 1200 cc / 24 hours
Hematuria noted. Urology was required to place Saab catheter
Follow for now
Remains on LR, KVO
Tolerating trickle feeds
Patient with history of atrial fibrillation
Xarelto via NG tube
Dose appropriate for renal function, creatinine 1.6, may need adjustment if creatinine clearance worsens
Follow-up blood sugars
Remains on moderate resistance insulin at this time
Reviewed at length with critical care nursing, respiratory care
Updated multiple family members with family meeting with son, daughter, , brother and [id number]
Reviewed importance of 72 hours post TTM which is tomorrow morning. Hope for improvement in neurological status although may be difficult to differentiate between medications and anoxic injury
Reviewed at length potential poor prognostic signs especially multisystem organ failure especially with a background of severe underlying lung disease, cirrhosis
All questions answered
Remains full code
TCCT 76 min
Subjective Dataa
Subjective Data
Date of Service:
Date of Service: August 30, 2024
Subjective:
Patient remains critically ill. Requiring norepinephrine. Tolerating tube feeds. Platelets have decreased to 93, creatinine is increased to 1.6. Ammonia level 33. Unfortunately, during plans for transport for CT imaging, patient became agitated
with simple movement, dyssynchronous with the ventilator, high airway pressures, unable to ventilate. Required increasing propofol and additional dose of fentanyl.
Objective Data
Data Reviewed
Vital Signs / I&O / Oxygen:
Vital Signs
Temp Pulse Resp BP Pulse Ox
97.7 F 55 18 128/63 98
08/30/24 06:00 08/30/24 06:05 08/30/24 06:05 08/30/24 05:00 08/30/24 06:05
Intake and Output
08/28/24 08/29/24 08/30/24
06:59 06:59 06:59
Intake Total 1221.6 / 1379.7 3417.8 / 3510.2 2983.2 / 2983.2
Output Total 860 / 890 2070 / 2130 1445 / 1445
Balance 361.6 / 489.7 1347.8 / 1380.2 1538.2 / 1538.2
SaO2 [A/C] 98
SaO2 98
Physical Exam
General: Comfortable and Other (Left upper extremity A-line, femoral line)
HEENT: Normocephalic and Anicteric
Cardiovascular: S1-S2, Regular Rhythm, Murmur (n) and Rub (n)
Respiratory: Wheeze (Scattered diffuse, right greater than left), Crackles (n), Rhonchi (n), Accessory Resp Muscle Use (With agitation, dyssynchrony with the ventilator, agonal breathing), Stridor (n), Crepitus (n) and ET Tube
GI: Soft, Non Distended (Obese), NG Tube and Other (Saab catheter with hematuria)
Neurology: Lethargic (Sedated, but remains unresponsive. Episodes of agitation, does not follow commands)
Skin: Cyanosis (n), Jaundice (n), Rash (n) and Other (Type II)
Labs/Micro/Reports
Lab Data
08/30/24 04:36
08/30/24 04:36
Laboratory Results
08/29/24 08/29/24 08/29/24
09:00 09:57 21:00
PT
INR
APTT
pH Cancelled 7.32 L Cancelled
pCO2 Cancelled 41 Cancelled
pO2 Cancelled 169 H Cancelled
HCO3 Cancelled 21.1 Cancelled
O2 Delivery Level Cancelled 40% Cancelled
08/30/24
04:36
PT 21.3 H
INR 1.83
APTT 41.7 H
pH 7.31 L
pCO2 45
pO2 107
HCO3 22.7
O2 Delivery Level
Microbiology
08/27/24 19:08 Blood/Venous Blood Culture - Preliminary
No Growth in 48 hours- Final report to follow
08/27/24 19:08 Blood/Venous Blood Culture - Preliminary
No Growth in 48 hours- Final report to follow
08/28/24 08:49 Nose Nasal Screen MRSA (PCR) - Final
MRSA not detected - performed by PCR methodology.
08/28/24 06:07 Nasal Swab Influenza Types A & B ([facility]) - Final
Negative for Influenza A & B, NAAT
Negative results must be combined with clinical observations
and patient history.
Nucleic Acid Amplification test (NAAT)performed on the
[employer] platform.
[2024-08-30] MEDS: DECADRON 4 MG IV ×4 (07:21→23:42)
[2024-08-30] MEDS: MIRALAX 17 GRAMS PO (07:21)
[2024-08-30] MEDS: BUSPAR 30 MG TUBE ×4 (07:21→23:42)
[2024-08-30] MEDS: REFRESH CELLUVISC GEL 1 DROPS BOTH EYES ×2 (07:21→19:44)
[2024-08-30] MEDS: PROTONIX IV 40 MG IV (07:22)
[2024-08-30] MEDS: NSS (PRESERVATIVE FREE) 10 ML IV (07:22)
--- NOTE | 2024-08-30 07:40 | W.PN.NEURO.1 ---
Today's Communication / Plan
-
.
Subjective/Objective
Subjective Data
Date of Service: August 30, 2024
Neurology follow-up note
24-hour events: Afebrile, normotensive, intermittently bradycardic down to 48. Continues to require vasopressin and fentanyl.
Repeat CT head was done, official report is pending.
PMH: ET/PD, PA A-fib, centrilobular emphysema, history of GI bleed, MASH, GERD, Fe, Vit D deficiency, EVE, BMI 34, chronic thrombocytopenia
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
FH: Noncontributory to current presentation.
All: Neosporin, doxycycline, linaclotide
ROS: Unable due to encephalopathy
General: Well developed. In no acute distress.
Cardio: Regular rate and rhythm without murmur. Extremities are without cyanosis or edema.
Neuro:
General: Sedated, intubated
Cardio: Regular rate
Mental Status: Comatose
Cranial Nerves: Mild bilateral esotropia. Pupils are 2.5 mm, nonreactive. Negative oculocephalics, corneals, gag.
Motor: Flaccid quadriplegia
Reflexes: 3+ upper extremities and patellar's; sustained clonus at the right ankle. Grayson's�positive bilaterally.
Sensory: Unable to assess
Coordination: No tremors myoclonic movements
Gait: unable
Assessment and Plan:
I. Multifactorial encephalopathy (hypoxic, toxic, vascular). No upper motor neuron signs.
II. IPD
III. History of RLS
IV. PA A-Fib
V. Mild chronic thrombocytopenia
-Seizure precautions
- CT C spine
- Continuing Xarelto for stroke prophylaxis
- Follow-up formal CT head report
-The case was discussed with patient's son and his family.
I personally reviewed all radiology and labs along with past medical records pertinent to current medical problems. Total time spent in patient care is 35 minutes.
Thank you for allowing us to participate in the care of this patient. We will continue to follow. Please do not hesitate to contact us with any questions o
Objective Data
Vital Signs
Temp Pulse Resp BP Pulse Ox
36.5 C 61 18 139/59 96
08/30/24 07:00 08/30/24 07:30 08/30/24 07:30 08/30/24 07:00 08/30/24 07:35
Lab Results
08/30/24 04:36
08/30/24 04:36
PT 21.3 Sec (11.4-14.6) H 08/30/24 04:36
INR 1.83 08/30/24 04:36
APTT 41.7 Sec (23.4-35.0) H 08/30/24 04:36
Sodium 137 mmol/L (135-145) 08/30/24 04:36
Potassium 4.8 mmol/L (3.5-5.1) 08/30/24 04:36
BUN 31 mg/dl (9-20) H 08/30/24 04:36
Glucose 189 mg/dl (70-99) H 08/30/24 04:36
Calcium 8.2 mg/dl (8.4-10.2) L 08/30/24 04:36
Phosphorus 4.4 mg/dl (2.5-4.5) 08/30/24 04:36
Jgu-F-Xjccahokhlu Pept 214 pg/ml 08/30/24 04:36
LDL Cholesterol, Calc 22 mg/dl 08/28/24 05:48
Patient Allergies
bacitracin (From Neosporin ([id number])) Allergy (Verified 12/20/21 13:48)
Rash
neomycin (From Neosporin ([id number])) Allergy (Verified 12/20/21 13:48)
Rash
polymyxin B (From Neosporin ([id number])) Allergy (Verified 12/20/21 13:48)
Rash
Vital Signs and Labs
-
Vital Signs and Labs:
Vital Signs
Temp Pulse Resp BP Pulse Ox
36.1 C 52 18 142/63 96
08/30/24 11:00 08/30/24 10:25 08/30/24 10:25 08/30/24 09:00 08/30/24 10:29
Lab Results
08/30/24 04:36
08/30/24 04:36
PT 21.3 Sec (11.4-14.6) H 08/30/24 04:36
INR 1.83 08/30/24 04:36
APTT 41.7 Sec (23.4-35.0) H 08/30/24 04:36
Sodium 137 mmol/L (135-145) 08/30/24 04:36
Potassium 4.8 mmol/L (3.5-5.1) 08/30/24 04:36
BUN 31 mg/dl (9-20) H 08/30/24 04:36
Glucose 189 mg/dl (70-99) H 08/30/24 04:36
Calcium 8.2 mg/dl (8.4-10.2) L 08/30/24 04:36
Phosphorus 4.4 mg/dl (2.5-4.5) 08/30/24 04:36
Vrd-H-Uodqwolmjwi Pept 214 pg/ml 08/30/24 04:36
LDL Cholesterol, Calc 22 mg/dl 08/28/24 05:48
Medications
-
Medications:
Generic Name Dose Route Start Last Admin
Trade Name Freq PRN Reason Stop Dose Admin
Acetaminophen 650 mg 08/28/24 04:00 08/30/24 09:03
Acetaminophen (Oral Solution) 650 Mg/20.3 Ml Cup TUBE 09/25/24 03:59 650 mg
Q6H ISAEL Administration
Acetaminophen 650 mg 08/27/24 21:52
Acetaminophen 650 Mg Rectal Suppository RECTAL 08/31/24 21:51
Q6HPRN PRN
if cannot be given via tube
Albuterol Sulfate 2.5 mg 08/27/24 21:52
Albuterol Nebs 2.5 Mg/3 Ml Ampul INH
R Q4HPRN PRN
SOB
Protocol
Albuterol/Ipratropium 3 ml 08/28/24 08:00 08/30/24 10:24
Ipratropium 0.5/Albuterol 3 Mg (3 Ml Ampul) INH 3 ml
R QID ISAEL Administration
Protocol
Buspirone HCl 30 mg 08/28/24 08:00 08/30/24 07:21
Buspirone 15 Mg Tablet TUBE 09/25/24 07:59 30 mg
Q8 ISAEL Administration
Carboxymethylcellulose Sodium 1 drops 08/28/24 08:00 08/30/24 07:21
Carboxymethylcellulose Ophth Gel (Celluvisc) Droperette BOTH EYES 09/25/24 07:59 1 drops
BID ISAEL Administration
Dexamethasone Sodium Phosphate 4 mg 08/29/24 16:00 08/30/24 07:21
Dexamethasone 4 Mg/Ml 1 Ml Vial IV 09/26/24 15:59 4 mg
Q8 ISAEL Administration
Dextrose 12.5 grams 08/28/24 11:00
Dextrose 50% (0.5 Grams/Ml) 50 Ml Syringe IV 09/25/24 10:59
[id number] PRN
hypoglycemia
Protocol
Fentanyl Citrate 50 mcg 08/28/24 11:00 08/30/24 09:41
Fentanyl (50 Mcg/Ml) 100 Mcg/2 Ml Ampul IV 09/11/24 10:59 50 mcg
[id number] PRN Administration
see protocol
Protocol
Fluticasone Propionate 4 puff 08/30/24 20:00
Fluticasone 220 Mcg Inhaler INH 09/27/24 19:59
R BID ISAEL
Protocol
Glucagon 1 mg 08/28/24 11:00
Glucagon 1 Mg Vial IM 09/25/24 10:59
PRN PRN
hypoglycemia - no IV access
Protocol
Fentanyl Citrate 1,000 mcg in 100 mls @ 0 mls/hr 08/27/24 21:52 08/30/24 09:01
Sublimaze IV 100 mls
PER PROTOCOL ISAEL Administration
Protocol
Per Protocol
Norepinephrine Bitartrate 4 mg in 250 mls @ 0 mls/hr 08/27/24 21:52 08/29/24 23:40
Levophed IV 250 mls
PER PROTOCOL ISAEL Administration
Protocol
Per Protocol
Phenylephrine HCl 50 mg in 250 mls @ 0 mls/hr 08/27/24 21:52
Luis-Synephrine IV
PER PROTOCOL ISAEL
Protocol
Per Protocol
Propofol 1,000,000 mcg in 100 mls @ 0 mls/hr 08/27/24 21:52 08/30/24 11:10
Diprivan IV 100 mls
PER PROTOCOL ISAEL Administration
Protocol
Per Protocol
Piperacillin Sod/Tazobactam Sod 3.375 gram in 50 mls @ 100 mls/hr 08/27/24 22:00 08/30/24 09:03
Zosyn IV 50 mls
Q6H ISAEL Administration
Lactated Ringer's 1,000 mls @ 50 mls/hr 08/29/24 01:00 08/29/24 18:07
Lr IV 1,000 mls
.Q20H ISAEL Administration
Vasopressin 20 units in 100 mls @ 0 mls/hr 08/29/24 14:30 08/30/24 11:16
Pitressin IV 100 mls
PER PROTOCOL ISAEL Administration
Protocol
Per Protocol
Insulin Aspart 0 units 08/28/24 12:00 08/30/24 11:11
Insulin Aspart Moderate Resistance 300 Units/3 Ml Pen.Injctr SC 09/25/24 11:59 1 units
Q6 ISAEL Administration
Protocol
Lactulose 20 grams 08/30/24 16:00
Lactulose Solution (20 Grams/30 Ml) 30 Ml Cup TUBE 09/27/24 15:59
TID ISAEL
Pantoprazole Sodium 40 mg 08/28/24 08:00 08/30/24 07:22
Pantoprazole Sodium 40 Mg/10 Ml Vial IV 09/25/24 07:59 40 mg
DAILY ISAEL Administration
Polyethylene Glycol 17 grams 08/30/24 08:00 08/30/24 07:21
Polyethylene Glycol Powder 17 Grams Packet PO 09/27/24 07:59 17 grams
DAILY ISAEL Administration
Rivaroxaban 20 mg 08/29/24 18:00 08/29/24 16:55
Rivaroxaban 20 Mg Tablet PO 09/26/24 17:59 20 mg
On Hold: 08/30/24 10:38 QPM ISAEL Administration
Sodium Chloride 0 flush 08/27/24 22:00
Sodium Chloride 0.9% (Flush) Syringe IV 09/24/24 21:59
PER PROTOCOL ISAEL
Sodium Chloride 10 ml 08/28/24 08:00 08/30/24 07:22
Sodium Chloride 0.9% (Preservative Free) 10 Ml Vial IV 09/25/24 07:59 10 ml
DAILY ISAEL Administration
Home Medications
-
Home Medications
docusate sodium 100 mg capsule 100 mg PO DAILYPRN PRN constipation 03/20/18
roflumilast 500 mcg tablet (Daliresp) 500 mcg PO DAILY Lung/breathing issues 04/06/19
rosuvastatin 20 mg tablet 20 mg PO DAILY High cholesterol 03/06/21
fluticasone fur. 200 mcg-umeclid 62.5 mcg-vilant 25 mcg inhalat.powder (Trelegy Ellipta) 1 inh inhalation R DAILY Lung/Breathing Issues 10/10/23
ipratropium 0.5 mg-albuterol 3 mg (2.5 mg base)/3 mL nebulization soln 3 ml inhalation R Q6HPRN PRN sob 10/10/23
propranolol 80 mg capsule,24 hr,extended release 80 mg PO DAILY Blood Pressure 10/10/23
albuterol sulfate 90 mcg/actuation aerosol inhaler (Ventolin HFA) 1 - 2 puff inhalation R Q4HPRN PRN sob 08/27/24
ascorbic acid (vitamin C) 1,000 mg tablet (Vitamin C) 1,000 mg PO BID Supplement 08/27/24
azithromycin 500 mg tablet 500 mg PO DAILY Infection 08/27/24
cholecalciferol (vitamin D3) 50 mcg (2,000 unit) tablet 50 mcg PO DAILY Supplement 08/27/24
lansoprazole 30 mg capsule,delayed release 30 mg PO DAILY Gastrointestinal Issue 08/27/24
prednisone 10 mg tablet 10 mg PO .TAPER Anti-Inflammatory 08/27/24
rivaroxaban 20 mg tablet (Xarelto) 20 mg PO QPM Blood Clot Prevention/Tx 08/28/24
lubiprostone 24 mcg capsule 24 mcg PO DAILY 08/29/24
--- NOTE | 2024-08-30 07:46 | PTCARENOTE ---
pt received from previous rn- remains ett to vent- per Dr. Mata do not lower sedation at this time, remains aware of rass. pt sb with bbb and pvcs on monitor. left radial hilda zeroed and functioning, levo and vaso continue. pt remains on
propofol and fentanyl. pt tolerating tube feeds. forbes draining yellow urine. pt remains on artic sun for normothermia- see flowsheet. son at bedside, updated and educated, verbalized understanding. turned and repositioned, oral care and am care
provided. all safety precautions in place.
--- NOTE | 2024-08-30 08:01 | W.PN.HOSP.TC ---
Today's Communication/Plan
-
wean pressors as tolerated
monitor Hematuria, H&H, hold anticoagulation for now
Lactulose
sedation, vent mgmt, as per ICU
cont abx, steroids, bronchodilators
Assessment / Plan
Assessment / Plan
Physical Exam
General: sedated intubated
HEENT: ETT in place. Neck supple without JVD. Pinpoint pupils b/l
Respiratory: clear to auscultation b/l
Cardiac: S1/S2, Sinus Scott; No Murmur
GI: Soft, Non Tender, Non Distended and Normal Bowel Sounds
Musculoskeletal: No Clubbing, No Cyanosis and No Edema
Neuro: sedated
Psych: Calm
63M with PMH significant for PA-Fib and COPD who presents to ED s/p cardiac arrest at home.
Cardiac Arrest
- Cont care as per ICU
- Centerless Grinder Operator eval appreciated
- TTM protocol / aggressive avoidance of fever.
- vent support as per ICU, cont pressor support as necessary
- Neurology consult appreciated
- Cardiology consult appreciated Suspect troponin of 0.417 (since trended down) non-ACS myocardial injury from hypoxemia, stable cardiac status, signed off
- Centerless Grinder Operator consult appreciated
- Tube feeds
-08/30/24 CT Head Chest Cervical Spine Results noted
CT Chest appreciated
-Severe bilateral upper lobe centrilobular emphysema
-Interval increase in size of a 2.2 cm irregular shaped nodular opacity in the right lung apex- progressive scarring vs right upper lobe lung cancer.
-possible ABRAHAM PNA
-Acute bilateral anterolateral rib fractures and acute nondisplaced sternal fracture consistent with recent cardiopulmonary resuscitation.
-small Lt Pneumothorax not seen in follow up CT chest 08/30/24
- Moderate hepatic cirrhosis.
COPD with Acute Exacerbation
Possible PNA, recently hospitalized for suspected sepsis PNA
- Initial respiratory distress resulted in cardiac arrest as described by witnesses / EMS.
- IV steroids, nebs ATC.
- empiric zosyn, vanc discontinued w/ neg MRSA screen
- vent support as above.
Paroxysmal Atrial Fibrillation
- In A-Fib with RVR initially (s/p epi doses) - since converted to NSR.
- Monitor on telemetry for any recurrent arrhythmia / tachycardia.
- Cardiology consult appreciated
- Xarelto resumed subsequently placed on hold d/t new onset gross hematuria following first dose
Gross Hematuria
-monitor H&H
-holding anticoagulation as above, monitor
BPH
- Difficult Saab placement in the ED. Urology assistance appreciated
- Maintain Saab for critical care I/Os and temperature monitoring.
BENDER Cirrhosis (family hx)
Constipation
Mild Ammonia elevation
-no bowel movements since admission
-Lactulose started, cont
Benign Hypertension
Shock
- cardiogenic vs septic shock
- IVFs / pressor support/abx
- ECHO appreciated EF 55-60% no significant change from prior ECHO 09/2021
- Lactic acidosis trended down
Parkinson's Disease
- not on Parkinson medications
- per family, patient prescribed Sinemet but has not been taking.
Chronic Thrombocytopenia
- Monitor, stable
DVT Prophylaxis: SCD holding anticoagulation due to gross hematuria as above
Code Status: Full
Total Critical Care Time__40___ minutes. I was immediately available to the patient and staff. I personally examined, reviewed labs, diagnostic images/reports, interpretations, treatment plans, discussed patient care with other providers and
family (son same name Ashvin), patient unable to make decisions at this time, entered orders as appropriate and documented medical record.
Anticipated Discharge: > 48 hours
Subjective/Interval History
-
Date of Service: August 30, 2024
Failed spontaneous breathing trial. No bowel movements since admission. New onset punch colored urine hematuria following start Xarelto since placed on hold.
Objective Data
-
Labs:
Laboratory Results
07/13/25
04:36
WBC 18.1 H
Hgb 11.7 L
Hct 37.8 L
Plt Count 93 L D
PT 21.3 H
INR 1.83
APTT 41.7 H
HCO3 22.7
Sodium 137
Potassium 4.8
Chloride 109 H
Carbon Dioxide 19 L
BUN 31 H
Creatinine 1.6 H
Glucose 189 H
Calcium 8.2 L
Total Bilirubin 1.2
AST 42
ALT 38
Alkaline Phosphatase 52
Vital Signs:
Vital Signs
Temp Pulse Resp BP Pulse Ox
97.7 F 61 18 139/59 96
08/30/24 07:00 08/30/24 07:30 08/30/24 07:30 08/30/24 07:00 08/30/24 07:43
I&O
08/29/24 08/30/24 08/31/24
06:59 06:59 06:59
Intake Total 3417.8 / 3510.2 2983.2 / 3142.6 159.4 / 159.4
Output Total 2069 / 2129 1445 / 1475
Balance 1347.8 / 1380.2 1538.2 / 1667.6 129.4 / 129.4
[2024-08-30] MEDS: SUBLIMAZE 100 IV ×2 (09:01→19:21)
[2024-08-30] MEDS: SUBLIMAZE 50 MCG IV ×3 (09:11→12:41)
--- NOTE | 2024-08-30 10:22 | PTCARENOTE ---
0900- pt normothermia therapy interrupted for ct scan, pt with sudden onset of increased work of breathing, use of abdominal muscles, Dr. Mata at bedside, order to increase sedation- see mar and flowsheets. Dr. Mata updated family. pt taken
for head ct and chest ct.
per Dr. Mata no sedation vacation, continue sedation for ventilator synchrony and work of breathing, md remains aware of rass and inability to follow commands.
--- NOTE | 2024-08-30 10:25 | PTCARENOTE ---
0900- pt normothermia therapy interrupted for ct scan, pt with sudden onset of increased work of breathing, use of abdominal muscles, Dr. Mata at bedside, order to increase sedation- see mar and flowsheets, also made aware of hematuria.
[place] updated family. pt taken for head ct and chest ct.
per Dr. Mata no sedation vacation, continue sedation for ventilator synchrony and work of breathing, md remains aware of rass and inability to follow commands.
--- NOTE | 2024-08-30 10:28 | PTCARENOTE ---
0900- pt normothermia therapy interrupted for ct scan, pt with sudden onset of increased work of breathing, use of abdominal muscles, vent dysynchrony, Dr. aMta at bedside, ordered to increase sedation- see mar and flowsheets, also made aware of
hematuria. Dr. Mata updated family. pt taken for head ct and chest ct.
per Dr. Mata no sedation vacation, continue sedation for ventilator synchrony and work of breathing, md remains aware of rass and inability to follow commands. normothermia therapy resumed.
[2024-08-30 11:21] LABS: Glucose - Point of Care 172 mg/dl (70-99)
--- NOTE | 2024-08-30 13:32 | PTCARENOTE ---
normothermia therapy stopped for ct scan, given fentanyl per md order for ct. therapy restarted. turned and repositioned, assessment unchanged further.
--- NOTE | 2024-08-30 15:55 | PTCARENOTE ---
assessment unchanged. pt turned and repositioned, family remains updated.
[2024-08-30] MEDS: DUPHALAC/CHRONULAC 20 GRAMS TUBE ×2 (17:00→21:18)
[2024-08-30] MEDS: LEVOPHED 250 IV (17:01)
[2024-08-30] MEDS: LR 1000 IV (17:01)
[2024-08-30] MEDS: FLOVENT 220 MCG INHALER 4 PUFF INH (18:00)
[2024-08-30 18:06] LABS: Glucose - Point of Care 210 mg/dl (70-99)
--- NOTE | 2024-08-30 20:00 | PTCARENOTE ---
assumed care, pt intubated and sedated, WD to pain, weak gag, cough, and corneals, no puroposeful movement assessed, RASS -5, Sinus brday c PVCs, weak radials, doppler pedals, +1 GA, L rad A-line zeroed, 7.5 ETT 26@ lip, AC 18/500/5/40, diminished
and coarse, thick ny secretions, SpO2 96%, R nare Dyer sump 65cm, TF Osmolite 70ml/25ml water flush, BSx4 hypoactive, round and distended, thermistor forbes clear yellow output, 20G R hand, 20G L hand, 18G L arm, L Fem TL, gtts per worklist, artic
sun per worklist, Son @ bedside and updated, otherwise refer to documentation.
[2024-08-30] MEDS: VENTOLIN NEBULES 2.5 MG INH (22:39)
[2024-08-31 00:02] LABS: Glucose - Point of Care 187 mg/dl (70-99)
--- NOTE | 2024-08-31 00:19 | PTCARENOTE ---
systems reviewed, BG 187 treated per APR, gtts per worklist, small amount of bleeding from penis TEMPLATE REPRODUCTION TECHNICIAN made aware, otherwise refer to documentation
[2024-08-31] MEDS: SUBLIMAZE 50 MCG IV ×7 (00:57→18:03)
[2024-08-31] MEDS: VERSED 2 MG IV (01:04)
--- NOTE | 2024-08-31 01:11 | PTCARENOTE ---
pt had a mod loose BM, during turn to clean pt became tachy and belly breathing, GYNECOLOGY TEACHER @ bedside, Fent and versed given per MAR, RT applied, otherwise refer to documentation.
[2024-08-31] MEDS: LOPRESSOR 2.5 MG IV (01:48)
[2024-08-31] MEDS: ZOSYN 50 IV (03:10)
[2024-08-31] MEDS: TYLENOL ORAL SOLUTION 650 MG TUBE ×4 (03:11→20:51)
[2024-08-31] MEDS: PITRESSIN 100 IV (03:25)
[2024-08-31 03:27] LABS: B.E. -2.1 mmol/L; HCO3 25.0 mmol/L (21-28); O2 Saturation % 98.4 % (94-98); PCO2 52 mmHg (35-48); PO2 90 mmHg (83-108)
[2024-08-31 03:45] LABS: COVID-19 Antigen Negative (Negative)
[2024-08-31 03:45] LABS: Hematocrit 35.1 % (39.0-52.0); Hemoglobin 11.0 g/dL (13.0-18.0); Mean Corp Hgb Conc. 31.3 g/dL (33.0-37.0); Mean Corpuscular Volume 81.4 fL (80.0-94.0); Nucleated Red Blood Cells % 0 % (-); Platelet Count 67 10^3/uL (130-400); Red Cell Dist. Width 17.1 % (11.5-14.5)
[2024-08-31 03:58] LABS: ALT (SGPT) 38 U/L (0-50); AST (SGOT) 43 U/L (17-59); Albumin 2.9 g/dl (3.5-5.0); Alkaline Phosphatase 58 U/L (38-126); Blood Urea Nitrogen 35 mg/dl (9-20); Calcium 8.4 mg/dl (8.4-10.2); Carbon Dioxide 24 mmol/L (22-30); Chloride 109 mmol/L (98-107); Estimated Creatinine Clearance 63 ml/min; Glucose 166 mg/dl (70-99); Magnesium 2.4 mg/dl (1.6-2.3); Potassium 4.9 mmol/L (3.5-5.1); Sodium 135 mmol/L (135-145); Total Protein 5.2 g/dl (6.3-8.2); eGFR 51.67
[2024-08-31] MEDS: DIPRIVAN 100 IV ×4 (04:27→23:55)
[2024-08-31 04:43] VITALS: BMI 36.6
--- NOTE | 2024-08-31 04:48 | PTCARENOTE ---
systems reviewed, labs sent, CHG bath, FMS applied multiple lrg loose brown BMs, otherwise refer to documentation
[2024-08-31] MEDS: VENTOLIN NEBULES 2.5 MG INH (04:49)
[2024-08-31] MEDS: NOVOLOG FLEXPEN-MODERATE RESISTANCE 1 UNITS SC ×3 (05:49→18:02)
[2024-08-31 05:57] LABS: Glucose - Point of Care 163 mg/dl (70-99)
--- NOTE | 2024-08-31 07:30 | PTCARENOTE ---
Received pt @ change of shift intubated/sedated. Unresponsive;RASS -5; w/draws to painful stim; does not open eyes spont; weak cough/gag/+corneal; pupils 4mm and sluggish b/l. SB w 1st degree AVB, BBB, and prolonged QT on monitor. +1 anasarca.
Doppler PT/DP. SpO2 97% on vent settings AC20/500/.40/+5; #7.5 ett, 26 @ lip on L side. Auscultated dim/coarse breath sounds; scant clear secretions from ett. Hyperactive BS, abd round/obese/distended. FMS in place draining brown/liq stool. R
nare NGT w osmolite @ 70mL/hr w 25mL/hr H20 flush. Saab in place draining yellow urine; bloody @ insertion site. L rad a-line transduced, calibrated, and monitored; all ports patent and secured. L fem TL w prop/fent/levo/vaso/IVF see MAR/flow
sheet. #20 L/R hand and #18 L AC patent, dressing c/d/i. Dr. Roman to bedside this AM; R IJ central line insertion by in progress. Family updated @ bedside.
--- NOTE | 2024-08-31 07:47 | PN.DE.MGMTRT ---
Insulin Management
- -
08/31/2024: Diabetes Management Follow up
63 year old male with PMH: Parkinson's disease, A-Fib, RBBB, HTN, Advanced COPD, Severe emphysema, Severe EVE, GERD, Chronic Anemia, Lumbar DDD, BPH and pre-diabetes. Patient presented to the ED in cardiac arrest. Hx obtained from chart review and
Nurse. Patient was at home alone this when he called 911 c/o SOB. His neighbor went to check on him and found him leaning over the kitchen table and gasping for breath. EMS arrived a short time later and patient was described as 'gasping' for air.
He reportedly lost pulses and CPR was initiated. Patient received CPR and 2 rounds of epinephrine total with ROSC. He was intubated in the field and brought to the ED for further evaluation.
Family reports no prior hx of AK, CVA or diabetes. is currently hospitalized here with pneumonia. There is no indication of pt taking diabetes medications prior to admission. AC is 5.8%, Cr 1.4, eGFR 56.13
Patient is critically ill, remains sedated and mechanically ventilated, unable to interview. No family at bedside.
was ordered Critical care glycemic protocol on 08/28 but was never started, instead, was started on moderate corrective insulin only.
Tube feeds started on 08/29, currently at goal rate 70cc/hr, IV steroids- Decadron 4mg IV Q8hrs also continued, contributing to Hyperglycemia.
Glucose range 172 to 210, requiring 1-3 units of insulin coverage.
Will not make any changes to current treatment plan. Cont Moderate corrective insulin Q6hrs
Will cont to follow and add basal bolus insulin if necessary. Discussed with Nurse.
Diabetes History
- -
Type of Diabetes: 2
Pre-Admission Diabetes Regimen
08/31/24
03:21
Creatinine 1.5 H
Lab Results
Hemoglobin A1c Cancelled 08/27/24 21:52
Insulin Pump Settings
IP Diabetes Regimen
08/30/24 08/30/24 08/30/24
11:08 17:54 23:50
Glucose
POC Glucose 172 H 210 H 187 H
08/31/24 08/31/24
03:21 05:46
Glucose 166 H
POC Glucose 163 H
Meal type: Breakfast
Patient Education
[2024-08-31] MEDS: DUONEB 3 ML INH ×4 (07:49→19:43)
[2024-08-31] MEDS: FLOVENT 220 MCG INHALER 4 PUFF INH ×2 (07:49→19:44)
--- NOTE | 2024-08-31 07:50 | OR.RPT ---
Operative Report
Operative Report
Right IJ Central Line placement
Indication: Shock, need central access for multiple pressors
Consent obtained from: Patient's son at bedside as patient sedated and mechanically ventilated, unable to consent
Time-out was performed and patient was placed in Trendelenburg position. Ultrasound was used to assess patency of Right IJ vein. Under sterile conditions area was cleaned with chlorhexidine and then a full body drape was placed. 2 mL of local
anesthesia with lidocaine was injected. Under real-time ultrasound guidance, long axis view, the needle was inserted and vein was punctured, once blood was aspirated, syringe was removed and guidewire was advanced which did not meet any resistance.
Subsequently needle was withdrawn and guidewire was left in place. Ultrasound was used again to confirm presence of guidewire inside the vein lumen. A small carolyn was placed at the skin and a dilator was advanced to about 50% of its length.
Dilator was removed and central venous catheter was advanced over guidewire and subsequently guidewire was removed. All 3 ports were capped and they were easy to flush and were withdrawing blood without any resistance. Central line was sutured to
the skin and dressing was applied.
Ultrasound of the lungs was performed and good lung sliding was obtained. Patient stayed hemodynamically stable through the procedure.
Complications: None
Blood loss: Minimal
Time spent: 25 min
[2024-08-31] MEDS: DECADRON 4 MG IV ×2 (08:18→20:50)
[2024-08-31] MEDS: PROTONIX IV 40 MG IV (08:18)
[2024-08-31] MEDS: BUSPAR 30 MG TUBE (08:18)
[2024-08-31] MEDS: MIRALAX PO (08:18)
[2024-08-31] MEDS: DUPHALAC/CHRONULAC 20 GRAMS TUBE ×2 (08:18→20:51)
[2024-08-31] MEDS: NSS (PRESERVATIVE FREE) 10 ML IV (08:18)
--- NOTE | 2024-08-31 08:48 | W.PN.HOSP.TC ---
Today's Communication/Plan
-
See plan
ICU with ventilator and sedation is a high risk encounter
Assessment / Plan
Assessment / Plan
Physical Exam
General: sedated intubated
HEENT: ETT in place. Neck supple without JVD. Pinpoint pupils b/l
Respiratory: clear to auscultation b/l
Cardiac: S1/S2, Sinus Scott; No Murmur
GI: Soft, Non Tender, Non Distended and Normal Bowel Sounds
Musculoskeletal: No Clubbing, No Cyanosis and No Edema
Neuro: sedated
Psych: Calm
63M with PMH significant for PA-Fib and COPD who presents to ED s/p cardiac arrest at home.
Status Post Cardiac Arrest 08/27/24
Concern for Anoxic Brain Injury
- Cont care as per ICU
- Leather Goods Maker eval appreciated
- TTM protocol / aggressive avoidance of fever.
- vent support as per ICU -- continue at this time, cont pressor support as necessary
- Neurology consult appreciated
- Cardiology consult appreciated
- Leather Goods Maker consult appreciated
- Tube feeds
- 08/30/24 CT Head Chest Cervical Spine Results noted
3360-1 Ashvin [place] 63M pAfib Xarelto severe emphysema BENDER cirrhosis Parkinson (not on Parkinson medications) respiratory distress coded on EMS arrival intubated in field.� Failing SBT d/t agitation/encephalopathy.� Pressor steroids nebulizer
treatments.� New onset gross hematuria, Xarelto since placed on hold.
CT Chest appreciated
-Severe bilateral upper lobe centrilobular emphysema
-Interval increase in size of a 2.2 cm irregular shaped nodular opacity in the right lung apex- progressive scarring vs right upper lobe lung cancer.
-possible ABRAHAM PNA
-Acute bilateral anterolateral rib fractures and acute nondisplaced sternal fracture consistent with recent cardiopulmonary resuscitation.
-small Lt Pneumothorax not seen in follow up CT chest 08/30/24
- Moderate hepatic cirrhosis.
COPD with Acute Exacerbation
Possible PNA, recently hospitalized for suspected sepsis PNA
- Initial respiratory distress resulted in cardiac arrest as described by witnesses / EMS.
- IV steroids, nebs ATC.
- empiric zosyn, vanc discontinued w/ neg MRSA screen
- vent support as above.
Scattered nodular densities biapical predominant -- right upper lobe nodule increasing in size
Paroxysmal Atrial Fibrillation
- In A-Fib with RVR initially (s/p epi doses) - since converted to NSR.
- Monitor on telemetry for any recurrent arrhythmia / tachycardia.
- Cardiology consult appreciated
- Xarelto resumed subsequently placed on hold d/t new onset gross hematuria following first dose
- Patient developed tachycardia when attempted to wean sedation.
Acute Kidney Injury
- Monitor BMP
Gross Hematuria
-monitor H&H
-holding anticoagulation as above, monitor
Diarrhea
- Related to lactulose therapy for elevated ammonia
- Lactulose reduced to twice a day, recheck ammonia in a.m.
BPH
- Difficult Saab placement in the ED. Urology assistance appreciated
- Maintain Saab for critical care I/Os and temperature monitoring.
BENDER Cirrhosis (family hx)
Constipation
Mild Ammonia elevation
-no bowel movements since admission
-Lactulose started, cont
Benign Hypertension
Shock
- cardiogenic vs septic shock
- IVFs / pressor support/abx
- ECHO appreciated EF 55-60% no significant change from prior ECHO 09/2021
- Lactic acidosis trended down
Parkinson's Disease
- not on Parkinson medications
- per family, patient prescribed Sinemet but has not been taking.
Chronic Thrombocytopenia
- Monitor, stable
Obstructive Sleep Apnea on CPAP
Hyperlipidemia
History of umbilical hernia repair
Alcohol use
Significant smoking history, quit
DVT Prophylaxis: SCD holding anticoagulation due to gross hematuria as above
Code Status: Full
Anticipated Discharge: > 48 hours
Subjective/Interval History
-
Date of Service: August 31, 2024
Patient was seen and examined. He remained intubated and sedated.
Objective Data
-
Labs:
Laboratory Results
08/31/24 08/31/24
03:19 03:21
WBC 10.2
Hgb 11.0 L
Hct 35.1 L
Plt Count 67 L D
HCO3 25.0
Sodium 135
Potassium 4.9
Chloride 109 H
Carbon Dioxide 24
BUN 35 H
Creatinine 1.5 H
Glucose 166 H
Calcium 8.4
Total Bilirubin 1.1
AST 43
ALT 38
Alkaline Phosphatase 58
Vital Signs:
Vital Signs
Temp Pulse Resp BP Pulse Ox
97 F 54 20 123/58 98
08/31/24 07:12 08/31/24 07:54 08/31/24 07:54 08/31/24 01:48 08/31/24 07:54
I&O
08/30/24 08/31/24 09/01/24
06:59 06:59 06:59
Intake Total 2983.2 / 3142.6 4524.6 / 4656.0 131.4 / 131.4
Output Total 1445 / 1475 1050 / 1060
Balance 1538.2 / 1667.6 3474.6 / 3596.0 121.4 / 121.4
[2024-08-31] MEDS: SUBLIMAZE 100 IV ×2 (09:37→22:20)
[2024-08-31] MEDS: LOPRESSOR 5 MG IV (09:50)
--- NOTE | 2024-08-31 11:00 | PTCARENOTE ---
R IJ TL insertion completed by Dr. Roman and verified correct placement w x-ray. SAT initiated @ 0830- prop/fent off; BP @ goal and pressors weaned off per orders- see flow sheets. home service technician to bedside and procedure in progress. Pt. cardiac rhythm
switched into afib @ approx 0900; rate uncontrolled in 110-120's. @ approx 0930 pt. tachycardic; hypertensive; and dyschronous w vent. Plan to re-sedate per Dr. Roman. Fent bolus admin- see APR; fent/prop gtts restarted per orders- see flow
sheets. Low dose levo restarted to maintain goal MAP- see flow sheet. S/P re-sedation VS improved. EEG completed @ bedside. Family, updated.
[2024-08-31 12:00] LABS: Glucose - Point of Care 191 mg/dl (70-99)
[2024-08-31] MEDS: REFRESH CELLUVISC GEL BOTH EYES (12:09)
[2024-08-31] MEDS: STERILE WATER FOR INJECTION 20 ML IV (12:16)
[2024-08-31] MEDS: ROCEPHIN 2000 MG IV (12:16)
--- NOTE | 2024-08-31 12:29 | W.PN.INTV ---
Today's Communication / Plan
Recommendations
- Discontinue IV fluids
- Lowered steroids to dexamethasone 4 mg twice daily
- Abort SAT, give Lopressor 5 mg IV push for atrial fibrillation with RVR
- Start Precedex tonight and reattempt SAT in a.m. on Precedex.
- Lowered lactulose to twice a day, recheck ammonia level in a.m.
- Chest x-ray and ABG in a.m.
Assessment
-
63 yo M PMH of atrial fibrillation, HTN, COPD, Parkinson's disease s/p at-home cardiac arrest, status post TTM to 96 degrees. Patient was noted to be in agonal breathing as well as cyanotic per EMS. Initial rhythm was asystole.
Conditions present prior to admission
Scattered nodular densities biapical predominant
Right upper lobe nodule increasing in size
Severe COPD/emphysema
On home oxygen
Hypertension/hyperlipidemia
Atrial fibrillation
Parkinson's disease
Cirrhosis per imaging
Obstructive sleep apnea on CPAP
History of umbilical hernia repair
Alcohol use
Significant smoking history, quit
08/31 Overview: Patient currently intubated, mechanically ventilated and sedated. Propofol infusing at 20, fentanyl infusing at 75. Off TTM now. Ringer lactate currently infusing. Levophed has been off. Currently on mechanical ventilation
500/20/40%/5, ABG 7.29//90.
Assessment and plan
#1. S/p Cardiorespiratory arrest, 08/27. Suspect primarily pulmonary driven, asystole on initial rhythm per EMS note.
- CPR in the field, epinephrine x 2, ROSC in the field, intubated
- TTM completed, off TTM now.
- Patient has preserved reflexes, good cough, presence of gag reflex, occasionally breathing above the ventilator. No significant communication however does not make any eye contact quite encephalopathic also on sedation
#2. Concern for anoxic brain injury.
- CT x 2 has been unremarkable. Await EEG today. Likely might need MRI for further evaluation
- Attempted SAT led to tachycardia, asynchrony and agitation. Resume sedation
- Neurology service on case
#3. Acute hypercapnic respiratory failure, intubated in the field on 08/27
- Currently on mechanical ventilation, 500/20/40%/5, arterial blood gas this morning 7.29/52/90. First ABG on admission was 7.22/61
- Weaning attempted 08/30, was 01/01. Today patient developed significant tachycardia with atrial fibrillation, rapid ventricular rate, ventilator asynchrony and hypertension.
- Aborted SAT/SBT. Continue volume control ventilation and resume sedation.
- Start Precedex tonight and then will attempt SAT SBT while on Precedex on 09/01
#4. Severe emphysema with acute COPD exacerbation.
- No wheezing this morning
- Continue DuoNeb scheduled 4 times daily as well as fluticasone twice a day
- Lowered dexamethasone to 4 mg IV every 12 hours
- Continue mechanical ventilation for now
#5. Small left basilar pneumothorax per imaging
- Suspect related to CPR, resolved on subsequent CT scan.
#6. Pulmonary nodules on imaging
- Less likely acute pneumonia, aspiration certainly possible
-Has been on Zosyn, will switch to ceftriaxone and complete a total of 7 days of antibiotics
#7. Atrial fibrillation with rapid ventricular response.
- Patient developed tachycardia when attempted to wean sedation.
- Abort SAT, resume sedation with propofol and fentanyl
- Lopressor 5 mg IV x 1 stat
- Patient currently anticoagulated with Xarelto
#8. KEISHA
- Patient developed KESIHA, creatinine however has been stable around 1.5-1.6
- Bilateral pleural effusion noted on CT scan, also developing bilateral pedal edema on exam
- Discontinue IV fluids
#9. Hematuria
- Urology required to place Saab catheter in ED
-Trace amount of blood noted around the insertion site, monitor for now
#10. Diarrhea
- Related to lactulose therapy for elevated ammonia
- Lowered lactulose to twice a day, recheck ammonia in a.m.
DVT prophylaxis, currently on Xarelto. IV pantoprazole for GI prophylaxis.
Continue tube feeding, having bowel movements.
Discussed with patient's son at bedside and then also met patient's and via phone patient's daughter. Updated about patient's current clinical condition.
Critical Care time 65 mins -- The patient is admitted for acute critical illness for the treatment of vital organ failure and/or prevention of further life-threatening conditions. Total care includes time spent in review of history, physical exam,
medications, hemodynamic/ventilator parameters, laboratory data, imaging and discussion with house staff, pharmacy, respiratory therapy, cardboard inserter, and nursing.
Data:
CT Chest 08/2024: New pneumatoceles in the upper lobes as described above.
Stable probable nodular atelectasis versus pulmonary nodules versus parenchymal scarring less likely pneumonia in the upper lobes.
Small bilateral pleural effusions. Progressed.
Mild bibasilar consolidation probably atelectasis. Progressed.
Severe emphysematous disease. Stable.
Mildly nodular hepatic margin. This can be seen with cirrhosis. Stable
Stable acute right-sided rib fractures.
ECHO 08/2024: 1. Left ventricle: Normal size and function with an estimated ejection
fraction of 55-60% by visual estimation
2. Right ventricle: Normal
3. Atria: Normal
4. Mitral valve: No mitral regurgitation
5. Aortic valve: Mildly sclerotic leaflets. No aortic aortic insufficiency
6. Tricuspid valve: No tricuspid regurgitation. Estimated pulmonary artery
systolic pressures could not be obtained
7. When compared to the most recent echocardiogram from 10/13/2021, there has
been no significant change
Subjective Dataa
Subjective Data
Date of Service:
Date of Service: August 31, 2024
Subjective:
Patient currently intubated, sedated and mechanically ventilated.
Review of Systems
General: Unobtainable - Sedation
Objective Data
Data Reviewed
Vital Signs / I&O / Oxygen:
Vital Signs
Temp Pulse Resp BP Pulse Ox
97 F 117 20 109/50 97
08/31/24 07:12 08/31/24 11:21 08/31/24 11:21 08/31/24 09:50 08/31/24 12:00
Intake and Output
08/30/24 08/31/24 09/01/24
06:59 06:59 06:59
Intake Total 2983.2 / 3142.6 4524.6 / 4656.0 872.6 / 872.6
Output Total 1445 / 1475 1050 / 1060 320 / 320
Balance 1538.2 / 1667.6 3474.6 / 3596.0 552.6 / 552.6
SaO2 [A/C] 97
SaO2 97
Physical Exam
General: Comfortable
HEENT: Normocephalic and Anicteric
Cardiovascular: S1-S2, Regular Rhythm, Murmur (n) and Rub (n)
Respiratory: Wheeze (None), Crackles (n), Rhonchi (n), Accessory Resp Muscle Use (Got asynchronous with the vent on attempted SAT.), Stridor (n), Crepitus (n) and ET Tube
GI: Soft, Non Distended (Obese), NG Tube and Other (Saab catheter with hematuria)
Neurology: Other (Currently sedated.)
Skin: Cyanosis (n), Jaundice (n) and Rash (n)
Labs/Micro/Reports
Lab Data
08/31/24 03:21
08/31/24 03:21
Laboratory Results
08/31/24
03:19
pH 7.29 L
pCO2 52 H
pO2 90
HCO3 25.0
O2 Delivery Level
Microbiology
08/27/24 19:08 Blood/Venous Blood Culture - Preliminary
No Growth in 72 hours- Final report to follow
08/27/24 19:08 Blood/Venous Blood Culture - Preliminary
No Growth in 72 hours- Final report to follow
08/30/24 11:04 Urine Legionella Urinary Antigen - Final
Negative for Legionella pneumophila Serogroup 1 antigen.
A negative result does not rule out the possiblity of
Legionella infection due to other serogroups or species of
Legionella. Clinical correlation is recommended.
08/30/24 11:04 Urine Streptococcus pneumoniae Antigen (M - Final
Negative for Streptococcus pneumoniae antigen.
A negative result does not exclude infection with
Streptococcus pneumoniae. Clinical correlation is
recommended.
08/28/24 08:49 Nose Nasal Screen MRSA (PCR) - Final
MRSA not detected - performed by PCR methodology.
--- NOTE | 2024-08-31 12:30 | W.PN.CARDCBS ---
Today's Communication / Plan
-
Start amiodarone, IV bolus then via the tube
May need furosemide
supportive care
Prognosis poor
Impression / Plan
-
Primary Brake Rider: Dr. Lazo
Assessment:
Shortness of breath
OOH cardiac arrest
Acute exacerbation of advanced COPD
VDRF
Acute hypotension, requiring pressors
KEISHA
Elevated troponin
Paroxysmal Afib and atrial tachycardia
Chronic Xarelto OAC
PVCs, bigeminy, and NSVT
cRBBB
Advanced COPD
Severe emphysema
Severe EVE
Chronic thrombocytopenia
HTN
Hyperlipidemia
History of GI bleed
Parkinson's disease
Former smoker
Echo 10/13/2021: EF 55 to 60%, mild concentric LVH, no regional wall motion abnormalities, mild MR, trace TR, PAP 34 to 36 mmHg
Echo 08/28/2024: EF 55-60%, normal RV and atria, aortic sclerosis, no MR, could not obtain pulmonary artery pressure
Plan:
He had a self limited episode of atrial fibrillation and is now back in sinus rhythm.
In order to reduce the likelihood of further recurrences, we will add amiodarone via the tube.
Still with evidence of profound anoxic encephalopathy.
Pressors are being weaned.
He was on rivaroxaban prior to development of atrial fibrillation.
His EKG does not show acute changes. Troponin is detectable but only minimally elevated. Would not pursue further.
Chest x-ray shows effusions, proBNP is not elevated but would consider diuresis over the next 24 to 48 hours.
Prognosis is poor.
.
Progress Note - Brake Rider
Subjective
Date of Service: August 31, 2024:
63-year-old man admitted with presumed respiratory arrest and suspected anoxic encephalopathy. Family members called EMS for severe dyspnea. CPR initiated, with ACLS algorithms and asystole he received epinephrine and CPR with recovery of rhythm,
never received shock, had ROSC and now admitted with targeted temperature protocol. Known history of COPD.
PMH: COPD, paroxysmal A-fib, right bundle, hypertension, Parkinson's, PVCs and history of nonsustained VT, sleep apnea, ex-smoker, cirrhosis by CT scan
Medications: fentanyl, pantoprazole, DuoNebs, norepinephrine, propofol, rivaroxaban on hold, Precedex, dexamethasone, ceftriaxone
We are asked to review because of atrial fibrillation recurrence this morning, temporally from IJ line placement with rapid RVR. Amiodarone ordered, but he spontaneously reverted to sinus rhythm prior to the administration of amiodarone.
Earlier in the day he developed sinus tachycardia when attempts were made to lighten his sedation. His pressors have been reduced, he is only now on norepinephrine.
109/50, pulse 117, respiratory 20, afebrile, sats 97%, intake and output +3.3 L, weight is 115.8 kg, up 3 kg from yesterday and 12.8 kg since admission, Intubated, poorly responsive, diminished breath sounds wheezes, now sinus rhythm without obvious
murmurs, JVD okay, not much edema
Chest x-ray bilateral infiltrates diffuse with effusion, IJ line looks in good position, endotracheal tube
Hemoglobin 11 white count 10.2,
ABG 7.2 , base excess -2.1, BUN/creatinine are 35 and 1.5, potassium 4.9, proBNP yesterday 214
ECG Sinus rhythm, low voltage, right bundle branch block, inferior OR with left axis
Objective
Labs:
08/31/24 03:21
08/31/24 03:21
Labs
Hgb 11.0 g/dL (13.0-18.0) L 08/31/24 03:21
Hct 35.1 % (39.0-52.0) L 08/31/24 03:21
Plt Count 67 10^3/uL (130-400) L D 08/31/24 03:21
PT 21.3 Sec (11.4-14.6) H 08/30/24 04:36
INR 1.83 08/30/24 04:36
APTT 41.7 Sec (23.4-35.0) H 08/30/24 04:36
Sodium 135 mmol/L (135-145) 08/31/24 03:21
Potassium 4.9 mmol/L (3.5-5.1) 08/31/24 03:21
BUN 35 mg/dl (9-20) H 08/31/24 03:21
Creatinine 1.5 mg/dL (0.7-1.3) H 08/31/24 03:21
Glucose 166 mg/dl (70-99) H 08/31/24 03:21
Troponins
08/29/24
00:14
Troponin I 0.396 H*
Vital Signs and I&O:
Vital Signs
Temp Pulse Resp BP Pulse Ox
36.1 C 117 20 109/50 97
08/31/24 07:12 08/31/24 11:21 08/31/24 11:21 08/31/24 09:50 08/31/24 12:00
Vital Signs
Temp Pulse Resp BP Pulse Ox
36.1 C 117 20 109/50 97
08/31/24 07:12 08/31/24 11:21 08/31/24 11:21 08/31/24 09:50 08/31/24 12:00
Intake & Output
08/29/24 08/30/24 08/31/24 09/01/24
07:59 07:59 07:59 07:59
Intake Total 3194.0 / 3286.4 3050.2 / 3209.6 4496.6 / 4628.0 741.2 / 741.2
Output Total 2069 1415 / 1445 1030 / 1060 310 / 310
Balance 1124.0 / 1176.4 1635.2 / 1764.6 3466.6 / 3568.0 431.2 / 431.2
Physical Exam
Physical Exam
See above
[2024-08-31] MEDS: CORDARONE 103 MG IV (13:01)
[2024-08-31 13:35] LABS: Troponin I 0.056 ng/ml
--- NOTE | 2024-08-31 15:36 | CM ---
Remains intubated, multiple IV medications, IV/Steroid adjustments. Discharge POC: TBD based on medical progression.
[2024-08-31] MEDS: PACERONE 400 MG TUBE (16:14)
[2024-08-31 17:40] LABS: Glucose - Point of Care 175 mg/dl (70-99)
[2024-08-31] MEDS: XARELTO 20 MG PO (18:02)
--- NOTE | 2024-08-31 18:40 | PTCARENOTE ---
pt. in/out of afib; rates uncontrolled 110's-140's. Dr. Nayeli Goldman made aware and further orders received for amio gtt- see flow sheet.
[2024-08-31] MEDS: CORDARONE 518 MG IV (18:43)
[2024-08-31 23:19] LABS: Glucose - Point of Care 155 mg/dl (70-99)
--- NOTE | 2024-09-01 | PTCARENOTE ---
Precedex gtt initiated per protocol. Beginning to taper down on propofol gtt.
[2024-09-01] MEDS: PRECEDEX 100 IV ×2 (00:02→08:35)
[2024-09-01] MEDS: NOVOLOG FLEXPEN-MODERATE RESISTANCE 1 UNITS SC ×2 (00:17→14:15)
--- NOTE | 2024-09-01 05:00 | PTCARENOTE ---
Pt weaned off propofol gtt. Pt continues to be unresponsive to verbal/tactile stimuli. Pt withdraws slightly to pain stimuli.
[2024-09-01 05:08] LABS: B.E. 0.4 mmol/L; HCO3 26.5 mmol/L (21-28); O2 Saturation % 97.6 % (94-98); PCO2 48 mmHg (35-48); PO2 85 mmHg (83-108)
[2024-09-01 05:12] LABS: Hematocrit 36.9 % (39.0-52.0); Hemoglobin 11.5 g/dL (13.0-18.0); Mean Corp Hgb Conc. 31.2 g/dL (33.0-37.0); Mean Corpuscular Volume 81.3 fL (80.0-94.0); Nucleated Red Blood Cells % 0.4 % (-); Platelet Count 69 10^3/uL (130-400); Red Cell Dist. Width 18.5 % (11.5-14.5)
[2024-09-01 05:17] LABS: Glucose - Point of Care 145 mg/dl (70-99)
[2024-09-01] MEDS: TYLENOL ORAL SOLUTION 650 MG TUBE ×3 (05:30→15:05)
[2024-09-01] MEDS: NOVOLOG FLEXPEN-MODERATE RESISTANCE SC (05:31)
[2024-09-01 05:39] VITALS: BMI 37.5
[2024-09-01 05:41] LABS: ALT (SGPT) 64 U/L (0-50); AST (SGOT) 64 U/L (17-59); Albumin 3.0 g/dl (3.5-5.0); Alkaline Phosphatase 74 U/L (38-126); Blood Urea Nitrogen 38 mg/dl (9-20); Calcium 9.0 mg/dl (8.4-10.2); Carbon Dioxide 29 mmol/L (22-30); Chloride 109 mmol/L (98-107); Estimated Creatinine Clearance 64 ml/min; Glucose 167 mg/dl (70-99); Magnesium 2.6 mg/dl (1.6-2.3); Potassium 5.6 mmol/L (3.5-5.1); Sodium 138 mmol/L (135-145); Total Protein 5.5 g/dl (6.3-8.2); eGFR 51.67
[2024-09-01 05:42] LABS: Ammonia 74 umol/L (9-30)
[2024-09-01 06:08] LABS: Troponin I 0.060 ng/ml
--- NOTE | 2024-09-01 06:30 | PTCARENOTE ---
Spoke w/ ENGINEERING DESIGN SUPERVISOR regarding pt's sustained elevated HR in the 130s. ENGINEERING DESIGN SUPERVISOR placed order to titrate amio gtt back up to 1mg/min. Order carried out by this RN.
[2024-09-01] MEDS: DUONEB 3 ML INH ×3 (07:55→15:21)
[2024-09-01] MEDS: FLOVENT 220 MCG INHALER 4 PUFF INH (07:55)
--- NOTE | 2024-09-01 07:55 | PN.DE.MGMTRT ---
Insulin Management
- -
09/01/2024: Diabetes Management Follow up
63 year old male with PMH: Parkinson's disease, A-Fib, RBBB, HTN, Advanced COPD, Severe emphysema, Severe EVE, GERD, Chronic Anemia, Lumbar DDD, BPH and pre-diabetes. Patient presented to the ED in cardiac arrest. Hx obtained from chart review and
Nurse. Patient was at home alone this when he called 911 c/o SOB. His neighbor went to check on him and found him leaning over the kitchen table and gasping for breath. EMS arrived a short time later and patient was described as 'gasping' for air.
He reportedly lost pulses and CPR was initiated. Patient received CPR and 2 rounds of epinephrine total with ROSC. He was intubated in the field and brought to the ED for further evaluation.
Family reports no prior hx of OR, CVA or diabetes. is currently hospitalized here with pneumonia. There is no indication of pt taking diabetes medications prior to admission. AC is 5.8%, Cr 1.4, eGFR 56.13
Patient is critically ill, remains sedated and mechanically ventilated, unable to interview. No family at bedside.
was ordered Critical care glycemic protocol on 08/28 but was never started, instead, was started on moderate corrective insulin only.
Tube feeds started on 08/29, currently at goal rate 70cc/hr, IV steroids- Decadron 4mg IV Q12hrs also continued, contributing to Hyperglycemia.
Glucose range 175 to 191, requiring 1 unit of insulin coverage.
Will not make any changes to current treatment plan. Cont Moderate corrective insulin Q6hrs
Will cont to follow and add basal bolus insulin if necessary. Discussed with Nurse.
Diabetes History
- -
Type of Diabetes: 2 requiring insulin
Pre-Admission Diabetes Regimen
09/01/24
04:54
Creatinine 1.5 H
Lab Results
Hemoglobin A1c Cancelled 08/27/24 21:52
Insulin Pump Settings
IP Diabetes Regimen
08/31/24 08/31/24 08/31/24
11:49 17:29 23:07
Glucose
POC Glucose 191 H 175 H 155 H
09/01/24 09/01/24
04:54 05:05
Glucose 167 H
POC Glucose 145 H
Patient Education
--- NOTE | 2024-09-01 08:00 | PTCARENOTE ---
Received pt @ change of shift intubated/sedated. Unresponsive;RASS -5; does not w/ draw to pain; does not open eyes spont; weak cough/gag/-negative corneal; pupils 3mm and brisk b/l. Uncontrolled afib on monitor. +1 anasarca/hands. Doppler PT/DP.
SpO2 96% on vent settings AC20/500/.40/+5; #7.5 ett, ett found @ 22cm; previously 26cm. RT and Dr. Roman made aware; ett moved back to 26cm w/out issue; no imaging per Dr. Roamn. Auscultated dim/coarse breath sounds; scant ny/bloody tinged
secretions from ett. Hyperactive BS, abd round/obese/distended. FMS in place draining brown/liq stool. R nare NGT w osmolite @ 70mL/hr w 25mL/hr H20 flush. Saab in place draining yellow urine; bloody @ insertion site. L rad a-line transduced,
calibrated, and monitored; all ports patent and secured. R IJ TL w dex/fent/amio/levo-see MAR/flow sheet. #20 L/R hand and #18 L AC patent, dressing c/d/i. Plan to condense gtts and attempt MRI today. Family updated @ bedside. Safe environment
maintained.
[2024-09-01] MEDS: NSS (PRESERVATIVE FREE) 10 ML IV (08:35)
[2024-09-01] MEDS: DUPHALAC/CHRONULAC 20 GRAMS TUBE (08:35)
[2024-09-01] MEDS: DECADRON 4 MG IV (08:35)
[2024-09-01] MEDS: PROTONIX IV 40 MG IV (08:35)
--- NOTE | 2024-09-01 08:52 | W.PN.CARDCBS ---
Today's Communication / Plan
-
Continue amiodarone gtt for rapid atrial flutter
Currently on Levophed which may be exacerbating his tachycardia, would consider phenylephrine or vasopressin as alternative pressors
Monitor platelet count closely while on Xarelto
Impression / Plan
-
Primary Coat Tailor: Dr. Lazo
Assessment:
Shortness of breath
OOH cardiac arrest
Acute exacerbation of advanced COPD
VDRF
Acute hypotension, requiring pressors
Atrial Flutter (typical) w/ RVR
KEISHA
Elevated troponin
Paroxysmal Afib and atrial tachycardia
Chronic Xarelto OAC
PVCs, bigeminy, and NSVT
cRBBB
Advanced COPD
Severe emphysema
Severe EVE
Chronic thrombocytopenia
HTN
Hyperlipidemia
History of GI bleed
Parkinson's disease
Former smoker
Echo 10/13/2021: EF 55 to 60%, mild concentric LVH, no regional wall motion abnormalities, mild MR, trace TR, PAP 34 to 36 mmHg
Echo 08/28/2024: EF 55-60%, normal RV and atria, aortic sclerosis, no MR, could not obtain pulmonary artery pressure
Plan:
Developed rapid atrial flutter overnight
Rate control options are limited by hypotension, still requiring pressors
Continue amiodarone gtt
Currently on Levophed which may be exacerbating his tachycardia, would consider phenylephrine or vasopressin as alternative pressors
Currently anticoagulated with Xarelto. Would monitor platelet count closely and discontinue if it drops below 50,000.
Troponin is detectable but only minimally elevated. His EKG does not show acute ischemic changes. Would not pursue further.
Chest x-ray shows effusions, but proBNP is not elevated. Suspect he will need eventual gentle diuresis.
Workup of anoxic encephalopathy per neurology
Discussed with family members at bedside as well as nursing
Patient is critically ill due to hypotension requiring pressors and atrial flutter with rapid ventricular response
Critical care time�32 minutes
Progress Note - Coat Tailor
Subjective
Date of Service: September 01, 2024
Remains intubated and sedated in the medical ICU. Developed rapid atrial flutter overnight and amiodarone drip was started.
Objective
Labs:
09/01/24 04:54
09/01/24 04:54
Labs
Hgb 11.5 g/dL (13.0-18.0) L 09/01/24 04:54
Hct 36.9 % (39.0-52.0) L 09/01/24 04:54
Plt Count 69 10^3/uL (130-400) L 09/01/24 04:54
PT 21.3 Sec (11.4-14.6) H 08/30/24 04:36
INR 1.83 08/30/24 04:36
APTT 41.7 Sec (23.4-35.0) H 08/30/24 04:36
Sodium 138 mmol/L (135-145) 09/01/24 04:54
Potassium 5.6 mmol/L (3.5-5.1) H 09/01/24 04:54
BUN 38 mg/dl (9-20) H 09/01/24 04:54
Creatinine 1.5 mg/dL (0.7-1.3) H 09/01/24 04:54
Glucose 167 mg/dl (70-99) H 09/01/24 04:54
Troponins
08/31/24 09/01/24
12:56 04:54
Troponin I 0.056 H* 0.060 H*
Vital Signs and I&O:
Vital Signs
Temp Pulse Resp BP Pulse Ox
99.5 F 113 20 109/50 96
09/01/24 08:00 09/01/24 07:57 09/01/24 07:57 08/31/24 09:50 09/01/24 08:00
Vital Signs
Temp Pulse Resp BP Pulse Ox
99.5 F 113 20 109/50 96
09/01/24 08:00 09/01/24 07:57 09/01/24 07:57 08/31/24 09:50 09/01/24 08:00
Intake & Output
08/30/24 08/31/24 09/01/24 09/02/24
06:59 06:59 06:59 06:59
Intake Total 2983.2 / 3142.6 4524.6 / 4656.0 3729.3 / 3729.3
Output Total 1445 / 1475 1050 / 1060 3015 / 3015
Balance 1538.2 / 1667.6 3474.6 / 3596.0 714.3 / 714.3
Physical Exam
Physical Exam
Gen: NAD
HEENT: NC/AT, sclera anicteric
CV: Tacky, irregularly irregular
Lungs: Mechanically ventilated
Abd: S/ND
: Saab with michael urine.
Ext: Trace LE edema
Skin: Warm, dry.
Neuro: Sedated
[2024-09-01] MEDS: SUBLIMAZE 50 MCG IV (09:32)
[2024-09-01] MEDS: ROCEPHIN 2000 MG IV (10:13)
[2024-09-01] MEDS: XIFAXAN 550 MG TUBE (10:13)
[2024-09-01] MEDS: LOKELMA 10 GRAM PO (10:13)
[2024-09-01] MEDS: STERILE WATER FOR INJECTION 20 ML IV (10:14)
--- NOTE | 2024-09-01 11:30 | PTCARENOTE ---
In attempt to condense gtt; admin fent bolus x1 w fent gtt increase and dex gtt off- see flow sheet. BP @ goal- levo gtt off- see flow sheet. Pt. remains on amio/fent gtts. S/p levo off BP borderline; Dr. Roman made aware; received orders for 1x
midorine- see APR. Pt.'s BP recovered back into goal; HR remains uncontrolled afib e rates 110-120's. Otherwise, no changes since prev assessment. Family remains @ bedside, continuously updated.
--- NOTE | 2024-09-01 11:40 | W.PN.INTV ---
Addendum entered and electronically signed by Lindy Roman MD 09/01/24 17:21:
MRI results reviewed, consistent with anoxic encephalopathy along with developing cerebral edema. Patient essentially unresponsive despite lowering the sedation. Met with family at bedside after neurology input. Patient's family has opted to
proceed with comfort focused care with plan for terminal extubation. at bedside said that she is aware of his wishes and he would not want to continue medical care in this condition if he is not able to get up and walk. We discussed regarding
palliative extubation and the role of medication to be used as needed if patient develops any air hunger nausea pain, anxiety or distress.
- CODE STATUS changed to DNR/DNI
- Comfort care order set placed
Original Note:
Today's Communication / Plan
Recommendations
- Lokelma x 1, switch to low potassium tube feeding formulation
- Await MRI, poor prognosis considering persistent encephalopathy
- Continue to wean sedation, plan for SAT and SBT after MRI
- Start rifaximin 500 mg via feeding tube twice a day
Assessment
-
63 yo M PMH of atrial fibrillation, HTN, COPD, Parkinson's disease s/p at-home cardiac arrest, status post TTM to 96 degrees. Patient was noted to be in agonal breathing as well as cyanotic per EMS. Initial rhythm was asystole.
Conditions present prior to admission
Scattered nodular densities biapical predominant
Right upper lobe nodule increasing in size
Severe COPD/emphysema
On home oxygen
Hypertension/hyperlipidemia
Atrial fibrillation
Parkinson's disease
Cirrhosis per imaging
Obstructive sleep apnea on CPAP
History of umbilical hernia repair
Alcohol use
Significant smoking history, quit
09/01 Overview: Patient currently intubated and sedated. Current infusions Fentanyl at 75, Precedex at 0.4, Levophed at 2 and amiodarone infusing. MAP of 93, saturating 96% on 40% FiO2. Vent setting 500/20/40%/5, ABG this morning 7.35, 48, 85.
Assessment and plan
#1. S/p Cardiorespiratory arrest, 08/27. Suspect primarily pulmonary driven, asystole on initial rhythm per EMS note.
- CPR in the field, epinephrine x 2, ROSC in the field, intubated
- TTM completed, off TTM now.
- Patient continues to be encephalopathic. Off propofol now, currently Precedex at 0.4 and fentanyl at 75. No meaningful response. Still has reflexes but they seem less brisk as compared to 08/31. MRI pending
#2. Concern for anoxic brain injury.
- CT x 2 has been unremarkable.
- Await MRI
- Neurology service on case
#3. Acute hypercapnic respiratory failure, intubated in the field on 08/27
- Currently on mechanical ventilation, 500/20/40%/5. First ABG on admission was 7.22/
- Weaning attempted 08/30, and 08/31, patient developed significant tachycardia with atrial fibrillation, rapid ventricular rate, ventilator asynchrony and hypertension.
- 09/01, will attempt SAT post MRI. Currently sedation down to Precedex 0.4 and fentanyl 75, patient essentially unresponsive.
-Stay off propofol
#4. Severe emphysema with acute COPD exacerbation.
- No wheezing this morning
- Continue DuoNeb scheduled 4 times daily as well as fluticasone twice a day
- Lowered dexamethasone to 4 mg IV every 12 hours
- Continue mechanical ventilation for now
#5. Small left basilar pneumothorax per imaging
- Suspect related to CPR, resolved on subsequent CT scan.
#6. Pulmonary nodules on imaging
- Less likely acute pneumonia, aspiration certainly possible
- Has been on Zosyn, switched to ceftriaxone and complete a total of 7 days of antibiotics
#7. Atrial fibrillation with rapid ventricular response.
- Patient developed tachycardia when attempted to wean sedation. Again overnight significant RVR
- Amiodarone infusion was started overnight, anticoagulated with Xarelto
- Cardiology service on case
#8. KEISHA with hyperkalemia
- Patient developed KEISHA, creatinine however has been stable around 1.5-1.6
- Bilateral pleural effusion noted on CT scan, also developing bilateral pedal edema on exam
- Discontinued IV fluids, will initiate diuresis once patient is off pressors
- Lokelma x 1, change tube feeding to low potassium formulation
#9. Hematuria
- Urology required to place Saab catheter in ED
- Trace amount of blood noted around the insertion site, monitor for now, stable
#10. Diarrhea
- Related to lactulose therapy for elevated ammonia
- Lowered lactulose to twice a day
#11. Elevated Ammonia
- Has been on lactulose, having diarrhea
- Start rifaximin twice daily via feeding tube
#12. Thrombocytopenia
- 69 this morning from 67 yesterday
- Continue to monitor closely
DVT prophylaxis, currently on Xarelto. IV pantoprazole for GI prophylaxis.
Continue tube feeding, having bowel movements.
Discussed with patient's son at bedside. also at bedside. Prognosis guarded.
Critical Care time 50 mins -- The patient is admitted for acute critical illness for the treatment of vital organ failure and/or prevention of further life-threatening conditions. Total care includes time spent in review of history, physical exam,
medications, hemodynamic/ventilator parameters, laboratory data, imaging and discussion with house staff, pharmacy, respiratory therapy, sales representative graphic art, and nursing.
Data:
CT Chest 08/2024: New pneumatoceles in the upper lobes as described above.
Stable probable nodular atelectasis versus pulmonary nodules versus parenchymal scarring less likely pneumonia in the upper lobes.
Small bilateral pleural effusions. Progressed.
Mild bibasilar consolidation probably atelectasis. Progressed.
Severe emphysematous disease. Stable.
Mildly nodular hepatic margin. This can be seen with cirrhosis. Stable
Stable acute right-sided rib fractures.
ECHO 08/2024: 1. Left ventricle: Normal size and function with an estimated ejection
fraction of 55-60% by visual estimation
2. Right ventricle: Normal
3. Atria: Normal
4. Mitral valve: No mitral regurgitation
5. Aortic valve: Mildly sclerotic leaflets. No aortic aortic insufficiency
6. Tricuspid valve: No tricuspid regurgitation. Estimated pulmonary artery
systolic pressures could not be obtained
7. When compared to the most recent echocardiogram from 10/13/2021, there has
been no significant change
Subjective Dataa
Subjective Data
Date of Service:
Date of Service: September 01, 2024
Subjective:
Patient currently intubated, mechanically ventilated, weaning sedation, mental status continues to be poor
Review of Systems
General: Unobtainable - Sedation
Objective Data
Data Reviewed
Vital Signs / I&O / Oxygen:
Vital Signs
Temp Pulse Resp BP Pulse Ox
99.5 F 108 20 89/53 98
09/01/24 08:00 09/01/24 11:32 09/01/24 11:32 09/01/24 10:13 09/01/24 11:32
Intake and Output
08/31/24 09/01/24 09/02/24
06:59 06:59 06:59
Intake Total 4524.6 / 4656.0 3729.3 / 3884.1 901.0 / 901.0
Output Total 1050 / 1060 3015 / 3115 360 / 360
Balance 3474.6 / 3596.0 714.3 / 769.1 541.0 / 541.0
SaO2 [A/C] 96
SaO2 98
Physical Exam
General: Comfortable
HEENT: Normocephalic and Anicteric
Cardiovascular: S1-S2, Regular Rhythm, Murmur (n) and Rub (n)
Respiratory: Wheeze (None), Crackles (n), Rhonchi (n), Stridor (n), Crepitus (n) and ET Tube
GI: Soft, Non Distended (Obese), NG Tube and Other (Saab catheter with hematuria)
Neurology: Other (Currently sedated.)
Skin: Cyanosis (n), Jaundice (n) and Rash (n)
Labs/Micro/Reports
Lab Data
09/01/24 04:54
09/01/24 04:54
Laboratory Results
09/01/24
04:54
pH 7.35
pCO2 48
pO2 85
HCO3 26.5
O2 Delivery Level
Microbiology
08/27/24 19:08 Blood/Venous Blood Culture - Preliminary
No Growth in 4 days- Final report to follow
08/27/24 19:08 Blood/Venous Blood Culture - Preliminary
No Growth in 4 days- Final report to follow
08/31/24 03:15 Endotracheal Gram Stain - Preliminary
08/30/24 11:04 Urine Legionella Urinary Antigen - Final
Negative for Legionella pneumophila Serogroup 1 antigen.
A negative result does not rule out the possiblity of
Legionella infection due to other serogroups or species of
Legionella. Clinical correlation is recommended.
08/30/24 11:04 Urine Streptococcus pneumoniae Antigen (M - Final
Negative for Streptococcus pneumoniae antigen.
A negative result does not exclude infection with
Streptococcus pneumoniae. Clinical correlation is
recommended.
[2024-09-01] MEDS: CORDARONE 518 MG IV (12:06)
[2024-09-01] MEDS: SUBLIMAZE 100 IV ×2 (12:07→19:27)
[2024-09-01 12:34] VITALS: BP 138/68
[2024-09-01 13:06] LABS: Glucose - Point of Care 194 mg/dl (70-99)
[2024-09-01 13:35] VITALS: BP 166/107
--- NOTE | 2024-09-01 15:37 | CM ---
IV/AB, IV/Decadron, MRI completed, poor prognosis, persistent encephalopathy, plan for SAT and SBT. Discharge POC: TBD.
--- NOTE | 2024-09-01 16:03 | CHAP ---
Emotional and spiritual support offered for Mr. Murrieta's family. Prayer blanket given. Family aware of 10/09 die maintenance coverage should they wish to reach out.
--- NOTE | 2024-09-01 16:13 | W.PN.HOSP.TC ---
Today's Communication/Plan
-
See plan
Assessment / Plan
Assessment / Plan
Physical Exam
General: sedated intubated
HEENT: ETT in place. Neck supple without JVD. Pinpoint pupils b/l
Respiratory: clear to auscultation b/l
Cardiac: S1/S2, Sinus Scott; No Murmur
GI: Soft, Non Tender, Non Distended and Normal Bowel Sounds
Musculoskeletal: No Cyanosis
Neuro: sedated
Psych: Calm
63M with PMH significant for PA-Fib and COPD who presents to ED s/p cardiac arrest at home.
Status Post Cardiac Arrest 08/27/24
Concern for Anoxic Brain Injury
- Cont care as per ICU
- Lithographic Platemaker eval appreciated
- TTM protocol / aggressive avoidance of fever.
- vent support as per ICU -- continue at this time, cont pressor support as necessary
- Neurology consult appreciated
- Cardiology consult appreciated
- Lithographic Platemaker consult appreciated
- Tube feeds
- 08/30/24 CT Head Chest Cervical Spine Results noted
- MRI pending
CT Chest appreciated
-Severe bilateral upper lobe centrilobular emphysema
-Interval increase in size of a 2.2 cm irregular shaped nodular opacity in the right lung apex- progressive scarring vs right upper lobe lung cancer.
-possible ABRAHAM PNA
-Acute bilateral anterolateral rib fractures and acute nondisplaced sternal fracture consistent with recent cardiopulmonary resuscitation.
-small Lt Pneumothorax not seen in follow up CT chest 08/30/24
- Moderate hepatic cirrhosis.
COPD with Acute Exacerbation
Possible PNA, recently hospitalized for suspected sepsis PNA
- Initial respiratory distress resulted in cardiac arrest as described by witnesses / EMS.
- IV steroids, nebs ATC.
- empiric zosyn, vanc discontinued w/ neg MRSA screen
- vent support as above.
Scattered nodular densities biapical predominant -- right upper lobe nodule increasing in size
Paroxysmal Atrial Fibrillation
Rapid Atrial Flutter
- Amiodarone Drip started for rapid atrial flutter -- continue
- Rate control options are limited by hypotension
- Monitor LFTs while on Amiodarone
- Cardiology consult appreciated
- Xarelto previously held for hematuria, now continued
- Patient developed tachycardia when attempted to wean sedation.
Acute Kidney Injury
- Monitor BMP
Hyperkalemia
- Lokelma
Gross Hematuria
-monitor H&H
-holding anticoagulation as above, monitor for now
Diarrhea
- Related to lactulose therapy for elevated ammonia
- Lactulose reduced to twice a day, recheck ammonia in a.m.
BPH
- Difficult Saab placement in the ED. Urology assistance appreciated
- Maintain Saab for critical care I/Os and temperature monitoring.
BENDER Cirrhosis (family hx)
Constipation
Mild Ammonia elevation
-no bowel movements since admission
-Lactulose started, cont
-Rifaximin
Benign Hypertension
Shock
- cardiogenic vs septic shock
- IVFs / pressor support/abx
- ECHO appreciated EF 55-60% no significant change from prior ECHO 09/2021
- Lactic acidosis trended down
Parkinson's Disease
- not on Parkinson medications
- per family, patient prescribed Sinemet but has not been taking.
Chronic Thrombocytopenia
- Monitor
- Hold Xarelto for platelets<50k
Obstructive Sleep Apnea on CPAP
Hyperlipidemia
History of umbilical hernia repair
Alcohol use
Significant smoking history, quit
DVT Prophylaxis: SCD holding anticoagulation due to gross hematuria as above
Code Status: Full
Intubation, sedation, rapid Atrial Flutter needing ICU care is a high risk encounter.
Anticipated Discharge: > 48 hours
Subjective/Interval History
-
Date of Service: September 01, 2024
Patient was seen and examined. He remained intubated and sedated.
Objective Data
-
Labs:
Laboratory Results
09/01/24 09/01/24
04:54 15:00
WBC 11.5 H
Hgb 11.5 L
Hct 36.9 L
Plt Count 69 L
HCO3 26.5
Sodium 138 Pending
Potassium 5.6 H Pending
Chloride 109 H Pending
Carbon Dioxide 29 Pending
BUN 38 H Pending
Creatinine 1.5 H Pending
Glucose 167 H Pending
Calcium 9.0 Pending
Total Bilirubin 1.1
AST 64 H
ALT 64 H
Alkaline Phosphatase 74
Vital Signs:
Vital Signs
Temp Pulse Resp BP Pulse Ox
98.3 F 102 20 166/107 95
09/01/24 15:21 09/01/24 15:22 09/01/24 15:22 09/01/24 13:35 09/01/24 15:22
I&O
08/31/24 09/01/24 09/02/24
06:59 06:59 06:59
Intake Total 4524.6 / 4656.0 3729.3 / 3884.1 1125.9 / 1125.9
Output Total 1050 / 1060 3015 / 3115 485 / 485
Balance 3474.6 / 3596.0 714.3 / 769.1 640.9 / 640.9
--- NOTE | 2024-09-01 16:24 | W.PN.NEURO.1 ---
Today's Communication / Plan
-
.
Neuro Assessment/Plan
Assessment
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
The likelihood of the patient having a significant and meaningful neurological recovery is no longer significant based on the patient's lack of significant recovery despite absence of significant changes by CT of head, EEG not demonstrating a
malignant pattern.
Plan
Reviewed with patient's family
Agree with suggestion of consideration of hospice and/or comfort care at this time
Will follow as needed
Subjective/Objective
Subjective Data
Date of Service: September 01, 2024
Objective Data
Vital Signs
Temp Pulse Resp BP Pulse Ox
36.8 C 102 20 166/107 95
09/01/24 15:21 09/01/24 15:22 09/01/24 15:22 09/01/24 13:35 09/01/24 15:22
Lab Results
09/01/24 04:54
PT 21.3 Sec (11.4-14.6) H 08/30/24 04:36
INR 1.83 08/30/24 04:36
APTT 41.7 Sec (23.4-35.0) H 08/30/24 04:36
Sodium 138 mmol/L (135-145) 09/01/24 04:54
Potassium 5.6 mmol/L (3.5-5.1) H 09/01/24 04:54
BUN 38 mg/dl (9-20) H 09/01/24 04:54
Glucose 167 mg/dl (70-99) H 09/01/24 04:54
Calcium 9.0 mg/dl (8.4-10.2) 09/01/24 04:54
Phosphorus 3.6 mg/dl (2.5-4.5) 09/01/24 04:54
Its-K-Qiqrvyinelq Pept 214 pg/ml 08/30/24 04:36
LDL Cholesterol, Calc 22 mg/dl 08/28/24 05:48
Patient Allergies
bacitracin (From Neosporin ([id number]-alv-cyaad)) Allergy (Verified 12/20/21 13:48)
Rash
neomycin (From Neosporin ([id number])) Allergy (Verified 12/20/21 13:48)
Rash
polymyxin B (From Neosporin ([id number]-usd-[id number])) Allergy (Verified 12/20/21 13:48)
Rash
Past History
Past History
ED Past Medical History: COPD (Emphysema), GERD, HTN, Hypercholesterolemia, Other (ANOXIC ENCEPHALOPATHY) and Other (Umbilical hernia with repair, diverticulosis, A-fib, Parkinson's, cirrhosis, hypertension, EVE with CPAP)
ED Past Surgical History: Other (Previous umbilical hernia repair)
Patient has exhibited threatening behavior?: No
Social History
Tobacco: Former smoker
Alcohol: Occasional (Rum and coke 1-2 but states more)
Drug: None
Personal:
Living: with family
Family History
Family History: Negative Diabetes, Hypertension or CAD
Medications
-
Medications:
Generic Name Dose Route Start Last Admin
Trade Name Freq PRN Reason Stop Dose Admin
Acetaminophen 650 mg 08/28/24 04:00 09/01/24 15:05
Acetaminophen (Oral Solution) 650 Mg/20.3 Ml Cup TUBE 09/25/24 03:59 650 mg
Q6H ISAEL Administration
Albuterol Sulfate 2.5 mg 08/27/24 21:52 08/31/24 04:49
Albuterol Nebs 2.5 Mg/3 Ml Ampul INH 2.5 mg
R Q4HPRN PRN Administration
SOB
Protocol
Albuterol/Ipratropium 3 ml 08/28/24 08:00 09/01/24 15:21
Ipratropium 0.5/Albuterol 3 Mg (3 Ml Ampul) INH 3 ml
R QID ISAEL Administration
Protocol
Amiodarone HCl 200 mg 08/31/24 22:00
Amiodarone 200 Mg Tablet TUBE 09/28/24 21:59
On Hold: 08/31/24 22:00 TID ISAEL
Ceftriaxone Sodium 2,000 mg 08/31/24 10:00 09/01/24 10:13
Ceftriaxone 1000 Mg / 10 Ml Vial IV 09/03/24 10:01 2,000 mg
Q24H ISAEL Administration
Dexamethasone Sodium Phosphate 4 mg 08/31/24 20:00 09/01/24 08:35
Dexamethasone 4 Mg/Ml 1 Ml Vial IV 09/28/24 19:59 4 mg
Q12 ISAEL Administration
Dextrose 12.5 grams 08/28/24 11:00
Dextrose 50% (0.5 Grams/Ml) 50 Ml Syringe IV 09/25/24 10:59
[id number] PRN
hypoglycemia
Protocol
Fentanyl Citrate 50 mcg 08/28/24 11:00 09/01/24 09:32
Fentanyl (50 Mcg/Ml) 100 Mcg/2 Ml Ampul IV 09/11/24 10:59 50 mcg
[id number] PRN Administration
see protocol
Protocol
Fluticasone Propionate 4 puff 08/30/24 20:00 09/01/24 07:55
Fluticasone 220 Mcg Inhaler INH 09/27/24 19:59 4 puff
R BID ISAEL Administration
Protocol
Glucagon 1 mg 08/28/24 11:00
Glucagon 1 Mg Vial IM 09/25/24 10:59
PRN PRN
hypoglycemia - no IV access
Protocol
Fentanyl Citrate 1,000 mcg in 100 mls @ 0 mls/hr 08/27/24 21:52 09/01/24 12:07
Sublimaze IV 100 mls
PER PROTOCOL ISAEL Administration
Protocol
Per Protocol
Norepinephrine Bitartrate 4 mg in 250 mls @ 0 mls/hr 08/27/24 21:52 08/30/24 17:01
Levophed IV 250 mls
PER PROTOCOL ISAEL Administration
Protocol
Per Protocol
Propofol 1,000,000 mcg in 100 mls @ 0 mls/hr 08/27/24 21:52 08/31/24 23:55
Diprivan IV 100 mls
PER PROTOCOL ISAEL Administration
Protocol
Per Protocol
Dexmedetomidine HCl 400 mcg in 100 mls @ 0 mls/hr 08/31/24 09:45 09/01/24 08:35
Precedex IV 100 mls
PER PROTOCOL ISAEL Administration
Protocol
Per Protocol
Amiodarone HCl 900 mg/ 518 mls @ 0 mls/hr 08/31/24 18:15 09/01/24 12:06
Dextrose/Water IV 518 mls
PER PROTOCOL ISAEL Administration
Protocol
Per Protocol
Phenylephrine HCl 50 mg in 250 mls @ 0 mls/hr 09/01/24 09:30
Luis-Synephrine IV
PER PROTOCOL ISAEL
Protocol
Per Protocol
Insulin Aspart 0 units 08/28/24 12:00 09/01/24 14:15
Insulin Aspart Moderate Resistance 300 Units/3 Ml Pen.Injctr SC 09/25/24 11:59 1 units
Q6 ISAEL Administration
Protocol
Lactulose 20 grams 08/31/24 20:00 09/01/24 08:35
Lactulose Solution (20 Grams/30 Ml) 30 Ml Cup TUBE 09/28/24 19:59 20 grams
BID ISAEL Administration
Midodrine 10 mg 09/01/24 14:50 09/01/24 15:05
Midodrine 5 Mg Tablet PO 09/29/24 14:49 10 mg
TID@0800,1300,1800 ISAEL Administration
Pantoprazole Sodium 40 mg 08/28/24 08:00 09/01/24 08:35
Pantoprazole Sodium 40 Mg/10 Ml Vial IV 09/25/24 07:59 40 mg
DAILY ISAEL Administration
Polyethylene Glycol 17 grams 09/01/24 08:00 09/01/24 08:35
Polyethylene Glycol Powder 17 Grams Packet TUBE 09/29/24 07:59 Not Given
DAILY ISAEL
Rifaximin 550 mg 09/01/24 09:30 09/01/24 10:13
Rifaximin 550 Mg Tablet TUBE 550 mg
BID ISAEL Administration
Rivaroxaban 20 mg 09/01/24 18:00
Rivaroxaban 20 Mg Tablet TUBE 09/29/24 17:59
QPM ISAEL
Sodium Chloride 0 flush 08/27/24 22:00
Sodium Chloride 0.9% (Flush) Syringe IV 09/24/24 21:59
PER PROTOCOL ISAEL
Sodium Chloride 10 ml 08/28/24 08:00 09/01/24 08:35
Sodium Chloride 0.9% (Preservative Free) 10 Ml Vial IV 09/25/24 07:59 10 ml
DAILY ISAEL Administration
Sterile Water 20 ml 09/01/24 10:00 09/01/24 10:14
Sterile Water For Injection 20 Ml Vial IV 09/03/24 10:01 20 ml
Q24H ISAEL Administration
--- NOTE | 2024-09-01 17:27 | PTCARENOTE ---
pt. transported down to MRI and back to ICU rm w/out issue. Complete hygiene provided on arrival back to unit. MRI results relayed to family by Dr. Roman and Dr. Goldberg. Dr. Roman to bedside to discuss goals of care; plan for comfort measures
pending more family arrival. [facility] rep present; discussion held w family and [facility] services declined.
[2024-09-01] MEDS: SUBLIMAZE 100 MCG IV ×3 (19:30→20:45)
[2024-09-01] MEDS: DUONEB INH (20:32)
--- NOTE | 2024-09-01 20:40 | PTCARENOTE ---
received patient from day shift RN, entire family at bedside, plan for terminal extubation at 8pm
NURSING STUDENT extubated at bedside, PRN bolus of fentanyl given prior to extubation, family returned to room, monitor on comfort mode,
Bedside prayers given to family and patient - family grieving appropriately at this time.
--- NOTE | 2024-09-01 21:43 | W.PN.DEATH ---
Pronouncement of
-
Called to see patient to pronounce.
No spontaneous heart tones or respirations noted.
Patient not responsive to verbal stimuli.
Patient is pronounced .
Time of : 20:59
Date of : 09/01/24
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
Family Notified: Yes
--- NOTE | 2024-09-01 22:27 | PTCARENOTE ---
patient at 2055, pronounced by alfonzo SANTIZO, family at bedside,
post mortem care provided, lines removed, body taken to [facility] [place]
home is [facility]
--- NOTE | 2024-09-02 08:39 | CM ---
Patient on 09/01/24 @ 20:59.
--- NOTE | 2024-09-02 14:36 | EEG.RPT ---
Electroencephalogram Report
Recording
Date of EE08/31/24
Type of EEG: Routine
Length of EEG recordin minutes
Done with Video Recording: Yes
Patient Status: Inpatient
Recording Conditions: Awake and Drowsy
Hyperventilation Performed: No
Photic Stimulation Performed: Yes
Report
LESS THAN 1 HOUR EEG REPORT
LESS THAN 1 HOUR EEG INTERPRETATION:
Moderately abnormal EEG for age due to diffuse bihemispheric slowing
CLINICAL CORRELATION:
This study was suggestive of diffuse cortical dysfunction without focal abnormality. No seizures were recorded.
Clinical correlation is advised.
METHODS:
A 21 channel digitized electroencephalogram (EEG) was performed at the bedside. The 10/20 international system of electrode placement was used with ECG and lateral/vertical eye movements recorded. Persyst QEEG monitoring was performed.
QUALITY OF STUDY:
Good
ELECTROENCEPHALOGRAPHER IMPRESSION(S):
Background
There was a low amplitude unorganized anterior-posterior voltage gradient of delta frequency
There were no significant asymmetries of background activity noted.
Sleep
Drowsiness present
Photic Stimulation
Failed to activate the record.
ECG
Normal sinus rhythm
== END 2024-09-01 20:59 | disposition expired | DRG 207 ==
LOC: ICU 20:57
PROVIDERS: Internal Medicine; Nurse Practitioner Family; Nurse Practitioner Primary Care; Psychiatry & Neurology Neurology; ADMITTING PHYSICIAN Hospitalist; ATTENDING PHYSICIAN Hospitalist; CONSULT PHYSICIAN Internal Medicine Cardiovascular Disease; CONSULT PHYSICIAN Internal Medicine Critical Care Medicine; CONSULT PHYSICIAN Psychiatry & Neurology Neurology; EMERGENCY PHYSICIAN Emergency Medicine; OTHER PHYSICIAN Specialist
PROC: XX20X89 Monitoring of Brain Electrical Activity, Computer-aided Detection and Notification, New Technology Group 9 (ICD-10-PCS; 2024-08-27)
PROC: 5A1955Z Respiratory Ventilation, Greater than 96 Consecutive Hours (ICD-10-PCS; 2024-08-27)
PROC: 03HY32Z Insertion of Monitoring Device into Upper Artery, Percutaneous Approach (ICD-10-PCS; 2024-08-28)
PROC: 02HV33Z Insertion of Infusion Device into Superior Vena Cava, Percutaneous Approach (ICD-10-PCS; 2024-08-31)
DX: J96.02 Acute respiratory failure with hypercapnia (principal); A41.9 Sepsis, unspecified organism; R65.21 Severe sepsis with septic shock; J18.9 Pneumonia, unspecified organism; G93.6 Cerebral edema; J44.1 Chronic obstructive pulmonary disease with (acute) exacerbation; S22.20XA Unspecified fracture of sternum, initial encounter for closed fracture; S22.43XA Multiple fractures of ribs, bilateral, initial encounter for closed fracture; I45.2 Bifascicular block; I47.20 Ventricular tachycardia, unspecified; E87.29 Other acidosis; G93.1 Anoxic brain damage, not elsewhere classified; N17.9 Acute kidney failure, unspecified; J93.9 Pneumothorax, unspecified; J44.0 Chronic obstructive pulmonary disease with (acute) lower respiratory infection; I46.8 Cardiac arrest due to other underlying condition; G20.A1 Parkinson's disease without dyskinesia, without mention of fluctuations; I48.0 Paroxysmal atrial fibrillation; I10 Essential (primary) hypertension; Z51.5 Encounter for palliative care; Z66 Do not resuscitate; R57.0 Cardiogenic shock; N40.0 Benign prostatic hyperplasia without lower urinary tract symptoms; D69.6 Thrombocytopenia, unspecified; J43.2 Centrilobular emphysema; X58.XXXA Exposure to other specified factors, initial encounter; R73.03 Prediabetes; R91.8 Other nonspecific abnormal finding of lung field; E87.5 Hyperkalemia; K74.60 Unspecified cirrhosis of liver; E78.00 Pure hypercholesterolemia, unspecified; G47.33 Obstructive sleep apnea (adult) (pediatric); R31.0 Gross hematuria; R19.7 Diarrhea, unspecified; G25.81 Restless legs syndrome; K21.9 Gastro-esophageal reflux disease without esophagitis; D50.9 Iron deficiency anemia, unspecified; M51.16 Intervertebral disc disorders with radiculopathy, lumbar region; K75.81 Nonalcoholic steatohepatitis (NASH); K59.00 Constipation, unspecified; Z99.81 Dependence on supplemental oxygen; Z11.52 Encounter for screening for COVID-19; Z87.891 Personal history of nicotine dependence; Z79.01 Long term (current) use of anticoagulants
CPT/HCPCS: 36556; 70450; 70551; 71045; 71250; 71275; 72125; 74177; 80053; 80061; 80202; 82140; 82248; 82550; 82553; 82805; 82962; 83036; 83605; 83735; 83880; 84100; 84134; 84443; 84478; 84484; 85025; 85610; 85730; 87040; 87070; 87205; 87449; 87502; 87641; 87811; 87899; 93005; 93306; 94002; 94003; 94640; 95705; 95813; 95816; 96361; 96365; 96375; 99291; J2916; Q9967